=== PATIENT | male | born 1975 | race Caucasian/White ===

== ENCOUNTER 2019-02-08 23:46 | Emergency (ER) | payer OTHER ==
[~2019-02-08] VITALS: Ht 177.8 cm; Wt 77.1 kg
--- OUTSIDE RECORDS SUMMARY | ~2019-02-08 | XMS | Encounter Summary ---
Demographics + + + | Address | [address] | | | [place], [place] [address] | + + + | Home Phone | | + + + | Preferred Language | Unknown | + + + | Marital Status | | + + + | Advent Affiliation | Unknown | + + + | Race | Unknown | + + + | Ethnic Group | Unknown | + + + Author + + + | Author | [email or web address] | + + + | Organization | [email or web address] | + + + | Address | Unknown | + + + | Phone | Unavailable | + + + Support + + +---------+ + | Name | Relationship | Address | Phone | + + +---------+ + | María Everett | ECON | Unknown | | + + +---------+ + Care Team Providers + +------+ + | Care Defense Attorney Name | Role | Phone | + +------+ + | Manuel Reyes | PCP | | + +------+ + Reason for Referral MRI/CAT Scan (Routine) +--------+--------+ + + + + | Status | Reason | Specialty | Diagnoses / | Referred By | Referred To | | | | | Procedures | Contact | Contact | +--------+--------+ + + + + | Closed | | Radiology | Diagnoses | Eric, | [facility] | | | | | DDD | MAX Jackson | [address] | | | | | (degenerativ | [address] | | | | | e disc | [address] | [place], [place] | | | | | disease), | [place], | [address] Phone: | | | | | thor[place]umb[place] | [place] [address] | [phone] | | | | | r | Phone: | Fax: | | | | | Osteoarthrit | [phone] | [phone] | | | | | is of lower | Fax: | | | | | | back Low | [phone] | | | | | | back pain | | | | | | | with | | | | | | | sciatica, | | | | | | | sciatica | | | | | | | laterality | | | | | | | unspecified, | | | | | | | unspecified | | | | | | | back pain | | | | | | | laterality, | | | | | | | unspecified | | | | | | | chronicity | | | | | | | Procedures | | | | | | | MRI lumbar | | | | | | | spine | | | | | | | without | | | | | | | contrast | | | +--------+--------+ + + + + MRI/CAT Scan (Routine) +--------+--------+ + + + + | Status | Reason | Specialty | Diagnoses / | Referred By | Referred To | | | | | Procedures | Contact | Contact | +--------+--------+ + + + + | Closed | | Radiology | Diagnoses | Eric, | [facility] | | | | | DDD | MAX Jackson | [address] | | | | | (degenerativ | [address] | | | | | e disc | [place] | [place], [place] | | | | | disease), | [place], | [address] Phone: | | | | | thor[place] | [place] [address] | [phone] | | | | | r | Phone: | Fax: | | | | | Osteoarthrit | [phone] | [phone] | | | | | is of lower | Fax: | | | | | | back Low | [phone] | | | | | | back pain | | | | | | | with | | | | | | | sciatica, | | | | | | | sciatica | | | | | | | laterality | | | | | | | unspecified, | | | | | | | unspecified | | | | | | | back pain | | | | | | | laterality, | | | | | | | unspecified | | | | | | | chronicity | | | | | | | Procedures | | | | | | | MRI lumbar | | | | | | | spine | | | | | | | without | | | | | | | contrast | | | +--------+--------+ + + + + Reason for Visit MRI/CAT Scan (Routine) +--------+--------+ + + + + | Status | Reason | Specialty | Diagnoses / | Referred By | Referred To | | | | | Procedures | Contact | Contact | +--------+--------+ + + + + | Closed | | Radiology | Diagnoses | Eric, | [facility] | | | | | DDD | MAX Jackson | [address] | | | | | (degenerativ | [address] | | | | | e disc | [place] | [place], [place] | | | | | disease), | [place], | [address] Phone: | | | | | [place] | [place] [address] | [phone] | | | | | r | Phone: | Fax: | | | | | Osteoarthrit | [phone] | [phone] | | | | | is of lower | Fax: | | | | | | back Low | [phone] | | | | | | back pain | | | | | | | with | | | | | | | sciatica, | | | | | | | sciatica | | | | | | | laterality | | | | | | | unspecified, | | | | | | | unspecified | | | | | | | back pain | | | | | | | laterality, | | | | | | | unspecified | | | | | | | chronicity | | | | | | | Procedures | | | | | | | MRI lumbar | | | | | | | spine | | | | | | | without | | | | | | | contrast | | | +--------+--------+ + + + + Encounter Details +--------+ + + + + | Date | Type | Department | Care Team | Description | +--------+ + + + + | 12/26/ | Hospital | [facility] | Manuel Reyes, | DDD (degenerative | | 2019 | Encounter | [facility] | [place] [address] | disc disease), | | | | [address] | [place] [address] | thoracolumbar; | | | | [place] [address] | [phone] | Osteoarthritis of | | | | [phone] | | lower back; Low back | | | | | | pain with sciatica, | | | | | | sciatica laterality | | | | | | unspecified, | | | | | | unspecified back | | | | | | pain laterality, | | | | | | unspecified | | | | | | chronicity | +--------+ + + + + Social [...] + + + as of this encounter Medications at Time of Discharge + + +-------+---------+--------+ + | Medication | Sig. | Disp. | Refills | Start | End Date | | | | | | Date | | + + +-------+---------+--------+ + | baclofen | Take 10 mg by mouth | | | | | | (LIORESAL) 10 mg | 3 (three) times | | | | | | tablet | daily. | | | | | + + +-------+---------+--------+ + | escitalopram | Take 20 mg by mouth | | | | | | (LEXAPRO) 20 MG | daily. | | | | | | tablet | | | | | | + + +-------+---------+--------+ + | | Take 1 tablet by | | | | | | oxyCODONE-acetaminop | mouth every 4 (four) | | | | | | hen (PERCOCET) | hours as needed for | | | | | | 10-325 MG per tablet | Pain. | | | | | + + +-------+---------+--------+ + | propranolol | Take 10 mg by mouth | | | | | | (INDERAL) 10 MG | 3 (three) times | | | | | | tablet | daily. | | | | | + + +-------+---------+--------+ + as of this encounter Plan of Treatment Not on fileas of this encounter Procedures + +--------+ + + + | Procedure Name | Priori | Date/Time | Associated Diagnosis | Comments | | | ty | | | | + +--------+ + + + | MRI LUMBAR SPINE WO | Routin | 12/26/2018 | DDD (degenerative | Results for this | | CONTRAST | e | 4:09 PM | disc disease), | procedure are in the | | | | PST | thoracolumbar | results section. | | | | | Osteoarthritis of | | | | | | lower back Low back | | | | | | pain with sciatica, | | | | | | sciatica laterality | | | | | | unspecified, | | | | | | unspecified back | | | | | | pain laterality, | | | | | | unspecified | | | | | | chronicity | | + +--------+ + + + in this encounter Results MRI lumbar spine without contrast (12/26/2018 4:09 PM) + + + | Impressions | Performed At | + + + | 1. Severe bilateral L5/S1, moderate bilateral L4/5, and mild | [facility] | | bilateral L3/4 neural foraminal narrowing. 2. Additional multilevel | RADIOLOGY | | lumbar spine degenerative changes as detailed above without | | | significant spinal canal stenosis. Signed by: MD Cazares Casey | | | Sign Date/Time: 12/27/2018 6:53 AM | | + + + + + + | Narrative | Performed At | + + + | MRI LUMBAR SPINE WITHOUT CONTRAST CLINICAL INFORMATION: Low back | [facility] | | pain with sciatica. COMPARISON: None available. PROCEDURE: | RADIOLOGY | | Sagittal T2, axial T2, sagittal T1, axial T1, sagittal STIR sequences. | | | FINDINGS: Slight retrolisthesis of L3 on L4 and L4 on L5. Lumbar | | | spine alignment is otherwise maintained. No aggressive appearing | | | osseous lesion identified. No marrow edema to suggest acute | | | fracture. Multilevel disc desiccation and endplate degenerative | | | changes are present, most pronounced at L5/S1. Small superior T12 | | | and L2 endplate Schmorl's nodes are noted. The conus and cauda | | | equina are unremarkable in appearance. The conus terminates at the | | | lower L1 level. The visualized soft tissues are unremarkable. | | | T12-L1: No significant spinal canal stenosis or neural foraminal | | | narrowing. L1-L2: Mild diffuse disc bulge without spinal canal | | | stenosis or neural foraminal narrowing. L2-L3: No significant spinal | | | canal stenosis or neural foraminal narrowing. L3-L4: Mild diffuse | | | disc bulge and mild bilateral facet degeneration result in mild | | | bilateral neural foraminal narrowing without spinal canal stenosis. | | | L4-L5: Mild diffuse disc bulge, mild bilateral facet degeneration, and | | | ligamentum flavum thickening result in moderate bilateral neural | | | foraminal narrowing without spinal canal stenosis. L5-S1: Mild | | | posterior disc osteophyte complex, mild bilateral facet degeneration, | | | and ligamentum flavum thickening result in severe bilateral neural | | | foraminal narrowing without spinal canal stenosis. | | + + + + + | Procedure Note | + + | Lester, Rad Results In - 12/27/2018 6:57 AM PST MRI LUMBAR SPINE WITHOUT CONTRAST | | CLINICAL INFORMATION: | | Low back pain with sciatica. | | COMPARISON: | | None available. | | PROCEDURE: | | Sagittal T2, axial T2, sagittal T1, axial T1, sagittal STIR sequences. | | FINDINGS: | | Slight retrolisthesis of L3 on L4 and L4 on L5. Lumbar spine alignment | | is otherwise maintained. No aggressive appearing osseous lesion | | identified. No marrow edema to suggest acute fracture. Multilevel | | disc desiccation and endplate degenerative changes are present, most | | pronounced at L5/S1. Small superior T12 and L2 endplate Schmorl's | | nodes are noted. The conus and cauda equina are unremarkable in | | appearance. The conus terminates at the lower L1 level. The | | visualized soft tissues are unremarkable. | | T12-L1: No significant spinal canal stenosis or neural foraminal | | narrowing. | | L1-L2: Mild diffuse disc bulge without spinal canal stenosis or neural | | foraminal narrowing. | | L2-L3: No significant spinal canal stenosis or neural foraminal | | narrowing. | | L3-L4: Mild diffuse disc bulge and mild bilateral facet degeneration | | result in mild bilateral neural foraminal narrowing without spinal | | canal stenosis. | | L4-L5: Mild diffuse disc bulge, mild bilateral facet degeneration, and | | ligamentum flavum thickening result in moderate bilateral neural | | foraminal narrowing without spinal canal stenosis. | | L5-S1: Mild posterior disc osteophyte complex, mild bilateral facet | | degeneration, and ligamentum flavum thickening result in severe | | bilateral neural foraminal narrowing without spinal canal stenosis. | | IMPRESSION: | | 1. Severe bilateral L5/S1, moderate bilateral L4/5, and mild bilateral | | L3/4 neural foraminal narrowing. | | 2. Additional multilevel lumbar spine degenerative changes as detailed | | above without significant spinal canal stenosis. | | Signed by: MD Cazares Casey | | Sign Date/Time: 12/27/2018 6:53 AM | + + + + + + + | Performing | Address | City/State[facility] | Phone Number | | Organization | | | | + + + + + | [facility] | [address] | [place] [address] | | + + + + + in this encounter Visit Diagnoses + + | Diagnosis | + + | DDD (degenerative disc disease), thoracolumbar | + + | Degeneration of thoracic or thoracolumbar intervertebral disc | + + | Osteoarthritis of lower back | + + | Low back pain with sciatica, sciatica laterality unspecified, unspecified back pain | | laterality, unspecified chronicity | + +"
--- OUTSIDE RECORDS SUMMARY | ~2019-02-08 | XMS | Clinical Summary ---
Demographics + + + | Address | [address] | | | [place] [address] | + + + | Home Phone | | + + + | Preferred Language | Unknown | + + + | Marital Status | | + + + | Baptism Affiliation | Unknown | + + + | Race | Unknown | + + + | Ethnic Group | Unknown | + + + Author + + + | Author | [facility] | + + + | Organization | [facility] | + + + | Address | Unknown | + + + | Phone | Unavailable | + + + Support + + +---------+ + | Name | Relationship | Address | Phone | + + +---------+ + | María Everett | ECON | Unknown | | + + +---------+ + Care Team Providers + +------+ + | Care Animal Husbandry Manager Name | Role | Phone | + +------+ + | Manuel Reyes | PP | | + +------+ + Allergies + + + + + + | Active Allergy | Reactions | Severity | Noted | Comments | | | | | Date | | + + + + + + | Penicillins | Anaphylaxis | High | 07/30/20 | | | | | | 18 | | + + + + + + Current Medications + + +-------+---------+------+------+-------+ | Prescription | Sig. | Disp. | Refills | Star | End | Statu | | | | | | t | Date | s | | | | | | Date | | | + + +-------+---------+------+------+-------+ | | Take 1 tablet by | | | | | Activ | | oxyCODONE-acetaminop | mouth every 4 (four) | | | | | e | | hen (PERCOCET) | hours as needed for | | | | | | | 10-325 MG per tablet | Pain. | | | | | | + + +-------+---------+------+------+-------+ | propranolol | Take 10 mg by mouth | | | | | Activ | | (INDERAL) 10 MG | 3 (three) times | | | | | e | | tablet | daily. | | | | | | + + +-------+---------+------+------+-------+ | escitalopram | Take 20 mg by mouth | | | | | Activ | | (LEXAPRO) 20 MG | daily. | | | | | e | | tablet | | | | | | | + + +-------+---------+------+------+-------+ | baclofen | Take 10 mg by mouth | | | | | Activ | | (LIORESAL) 10 mg | 3 (three) times | | | | | e | | tablet | daily. | | | | | | + + +-------+---------+------+------+-------+ Active Problems No known active problems Encounters +--------+ + + + + | Date | Type | Specialty | Care Team | Description | +--------+ + + + + | 12/27/ | Orders Only | | Bre Connor, | Arthralgia of hip, | | 2018 | | | RN | unspecified | | | | | | laterality (Primary | | | | | | Dx) | +--------+ + + + + | 12/26/ | Hospital | | Manuel Reyes, | DDD (degenerative | | 2018 | Encounter | | [place] | disc disease), | | | | | | thoracolumbar; | | | | | | Osteoarthritis of | | | | | | lower back; Low back | [...] chronicity | +--------+ + + + + | 12/26/ | Hospital | | Brooke Tavarez, | Left hip pain | | 2018 | Encounter | | Babatunde Maza | | | | | | Procedure | | | | | | Radiologist Anel العراقي | | | | | | Nurse [facility] | | | | | | Counselor Marriage And Family | | +--------+ + + + + | 12/26/ | Hospital | | Brooke Tavarez, | Left hip pain | | 2018 | Encounter | | Anel WALLS Nurse | | +--------+ + + + + | 12/09/ | Documentati | | Manuel Reyes, | | | 2019 | on Only | | [place] | | +--------+ + + + + | 10/10/ | Procedure | | | | | 2017 | Pass | | | | +--------+ + + + + | 09/25/ | Procedure | | | | | 2017 | Pass | | | | +--------+ + + + + from Last 3 Months Family History + + +------+ + | Medical History | Relation | Name | Comments | + + +------+ + | Asthma | Mother | | | + + +------+ + | COPD | Mother | | | + + +------+ + | Heart defect | Mother | | | + + +------+ + | Heart disease | Mother | | | + + +------+ + | Hypertension | Mother | | | + + +------+ + + +------+ + + | Relation | Name | Status | Comments | + +------+ + + | Father | | Alive | | + +------+ + + | Mother | | | | + +------+ + + Social History + +-------+ +--------+ [...] on file | | + + + Last Filed Vital Signs + + + + | Vital Sign | Reading | Time Taken | + + + + | Blood Pressure | 114/64 | 12/26/2018 4:03 PM PST | + + + + | Pulse | 56 | 12/26/2018 4:03 PM PST | + + + + | Temperature | - | - | + + + + | Respiratory Rate | 11 | 12/26/2018 4:03 PM PST | + + + + | Oxygen Saturation | 95% | 12/26/2018 4:03 PM PST | + + + + | Inhaled Oxygen | - | - | | Concentration | | | + + + + | Weight | 70.3 kg (155 lb) | 12/26/2018 12:56 PM PST | + + + + | Height | 177.8 cm (5' 10") | 12/26/2018 12:56 PM PST | + + + + | Body Mass Index | 22.24 | 12/26/2018 12:56 PM PST | + + + + Plan of Treatment + + + + + | Health Maintenance | Due Date | Last Done | Comments | + + + + + | Vaccine: | | | | | Dtap/Tdap/Td (1 - | 4 | | | | Tdap) | | | | + + + + + | Vaccine: Influenza | | | | | (Season Ended) | 9 | | | + + + + + Procedures + +--------+ + + + | [...] + +--------+ + + + | MRI HIP LEFT | Routin | 12/26/2018 | Left hip pain | Results for this | | ARTHROGRAM W | e | 3:46 PM | | procedure are in the | | CONTRAST | | PST | | results section. | + +--------+ + + + | XR MRI ARTHROGRAM | Routin | 12/26/2018 | Left hip pain | Results for this | | HIP LEFT | e | 3:15 PM | | procedure are in the | | | | PST | | results section. | + +--------+ + + + from Last 3 Months Results MRI lumbar spine without contrast (12/26/2018 [...] | + + + + + | [facility] | [address] | [place] [address] | | + + + + + MRI hip left arthrogram with contrast (12/26/2018 3:46 PM) + + + | Impressions | Performed At | + + + | 1. Superolateral labral tear involving the base of the labrum. 2. | [facility] | | There is articular surface fraying of the anterior labrum. 3. No | RADIOLOGY | | full-thickness chondral defects. Signed by: Toi Olmedo Sign | | | Date/Time: 12/26/2018 4:19 PM | | + + + + + + | Narrative | Performed At | + + + | MRI LEFT HIP ARTHROGRAM CLINICAL INFORMATION: Left hip pain. | [facility] | | COMPARISON: XR MRI ARTHROGRAM HIP LEFT (12/26/2018); PROCEDURE: | RADIOLOGY | | Large blnmp-gk-dgym coronal T1 and STIR of the pelvis. Small | | | ivqps-vy-uuxu coronal T1 and T2, axial PD, sagittal T1, and radial T1 | | | of the hip of interest. Sequences obtained after the uneventful | | | intraarticular injection of dilute gadolinium. Sedation: None. | | | FINDINGS: Hip Morphology: Normal. Joint Space: Well distended with | | | contrast. Acetabular Labrum: Superolateral labral tear involving the | | | base of the labrum. There is articular surface fraying of the | | | anterior labrum (8/8). Articular Cartilage: No full-thickness | | | chondral defects. Musculature: Gluteal, psoas, hamstring, quadriceps, | | | adductor muscles and tendons normal. Pelvic Organs: No pelvic mass. | | | No adenopathy. Intramedullary mona of the left femur. | | + + + + + | Procedure Note | + + | Lester, Rad Results In - 12/26/2018 4:23 PM PST MRI LEFT HIP ARTHROGRAM | | CLINICAL INFORMATION: | | Left hip pain. | | COMPARISON: | | XR MRI ARTHROGRAM HIP LEFT (12/26/2018); | | PROCEDURE: | | Large zoimb-vt-jkfv coronal T1 and STIR of the pelvis. Small | | hukge-pi-emac coronal T1 and T2, axial PD, sagittal T1, and radial T1 | | of the hip of interest. Sequences obtained after the uneventful | | intraarticular injection of dilute gadolinium. Sedation: None. | | FINDINGS: | | Hip Morphology: Normal. | | Joint Space: Well distended with contrast. | | Acetabular Labrum: Superolateral labral tear involving the base of the | | labrum. There is articular surface fraying of the anterior labrum | | (06/12). | | Articular Cartilage: No full-thickness chondral defects. | | Musculature: Gluteal, psoas, hamstring, quadriceps, adductor muscles | | and tendons normal. | | Pelvic Organs: No pelvic mass. No adenopathy. | | Intramedullary mona of the left femur. | | IMPRESSION: | | 1. Superolateral labral tear involving the base of the labrum. | | 2. There is articular surface fraying of the anterior labrum. | | 3. No full-thickness chondral defects. | | Signed by: Toi Olmedo | | Sign Date/Time: 12/26/2018 4:19 PM | + + + + + + + | Performing | Address | City/State/Zipcode | Phone Number | | Organization | | | | + + + + + | [facility] | [address] | [place] [address] | | + + + + + X-ray MRI arthrogram hip left (12/26/2018 3:15 PM) + + + | Impressions | Performed At | + + + | Technically successful fluoroscopically guided injection of the left | [facility] | | hip for MR arthrography. Signed by: Toi Olmedo Date/Time: | RADIOLOGY | | 12/26/2018 3:48 PM | | + + + + + + | Narrative | Performed At | + + + | FLUOROSCOPICALLY GUIDED INJECTION OF THE LEFT HIP FOR MR | [facility] | | ARTHROGRAPHY CLINICAL INFORMATION: Left hip pain. COMPARISON: None | RAD[facility]OLOGY | | PROCEDURE: The procedure, alternatives, risks (including infection | | | and bleeding), and benefits were discussed with the patient and all | | | questions were answered. Written informed consent was obtained. The | | | skin overlying the left hip was prepped and draped in conventional | | | sterile fashion. Superficial and deep soft tissues were anesthetized | | | with 1% lidocaine. A 25 gauge 3 inch needle was advanced under | | | fluoroscopic guidance to the joint. Injection of 10ml of a solution | | | containing 10ml saline, 10 mL Isovue 200 contrast and 0.1 cc | | | gadolinium was injected. The patient tolerated the procedure well | | | without immediate complication. The needle was removed, and the skin | | | cleansed. A small bandage was placed over the puncture site. FLUORO | | | TIME: .1 minute The total number of images: 4 | | + + + + + | Procedure Note | + + | Lester, Rad Results In - 12/26/2018 3:52 PM PST FLUOROSCOPICALLY GUIDED INJECTION OF | | THE LEFT HIP FOR MR ARTHROGRAPHYCLINICAL INFORMATION:Left hip | | pain.COMPARISON:NonePROCEDURE:The procedure, alternatives, risks (including infection | | and bleeding),and benefits were discussed with the patient and all questions | | wereanswered. Written informed consent was obtained.The skin overlying the left hip was | | prepped and draped in conventionalsterile fashion. Superficial and deep soft tissues | | were anesthetizedwith 1% lidocaine. A 25 gauge 3 inch needle was advanced | | underfluoroscopic guidance to the joint. Injection of 10ml of a solutioncontaining 10ml | | saline, 10 mL Isovue 200 contrast and 0.1 cc gadoliniumwas injected. The patient | | tolerated the procedure well withoutimmediate complication.The needle was removed, and | | the skin cleansed. A small bandage wasplaced over the puncture site.FLUORO TIME:.1 | | minute The total number of images: 4IMPRESSION:Technically successful fluoroscopically | | guided injection of the lefthip for MR arthrography.Signed by: Calli Olmedo | | Date/Time: 12/26/2018 3:48 PM | |was injected. The patient tolerated the procedure well without | |immediate complication. | |The needle was removed, and the skin cleansed. A small bandage was | |placed over the puncture site. | |FLUORO TIME: | |.1 minute The total number of images: 4 | |IMPRESSION: | |Technically successful fluoroscopically guided injection of the left | |hip for MR arthrography. | |Signed by: Reeve, Toi | |Sign Date/Time: 12/26/2018 3:48 PM | + + + + + + + | Performing | Address | City/State/Zipcode | Phone Number | | Organization | | | | + + + + + | [facility] | [address] | [place] [address] | | + + + + + from Last 3 Months Insurance + +--------+ +------+-------+ + | Payer | Benefi | Subscriber | Type | Phone | Address | | | t Plan | ID | | | | | | / | | | | | | | Group | | | | | + +--------+ +------+-------+ + | MEDICAID | MAX | [id number] | | | [address] | | | N | | | | [place] | | | [place] | | | | [address] | | | [employer] | | | | | + +--------+ +------+-------+ + + +--------+ +--------+ + + | Guarantor Name | [employer]oun | Relation to | Date | Phone | Billing Address | | | t Type | Patient | of | | | | | | | | | | + +--------+ +--------+ + + | BENJAMIN WHEAT | Person | Self [birth year] | Home: | [address] | | | al/Fam | | 1975 | [phone] | [place] [address] | | | donte | | | [phone] | | + +--------+ +--------+ + +
--- OUTSIDE RECORDS SUMMARY | ~2019-02-08 | XMS | Encounter Summary ---
Demographics + + + | Address | [address] | | | [place], [place] [address] | + + + | Home Phone | | + + + | Preferred Language | Unknown | + + + | Marital Status | | + + + | Latter Day Affiliation | Unknown | + + + | Race | Unknown | + + + | Ethnic Group | Unknown | + + + Author + + + | Author | [facility] | + + + | Organization | [facility] | + + + | Address | Unknown | + + + | Phone | Unavailable | + + + Support + + +---------+ + | Name | Relationship | Address | Phone | + + +---------+ + | María Everett | ECON | Unknown | | + + +---------+ + Care Team Providers + +------+ + | Care Taker Down Name | Role | Phone | + +------+ + | Manuel Reyes | PCP | | + +------+ + Encounter Details +--------+ + + + + | Date | Type | Department | Care Team | Description | +--------+ + + + + | 12/09/ | Documentati | [facility] | Manuel Reyes, | | | 2019 | on Only | [facility] | [address] | | | | | Patient Access [id number] | [place] [address] | | | | | [place] [address], | [phone] | | | | | [place] [address] | | | | | | [phone] | | | +--------+ + + + + Social History + +-------+ +--------+------+ | Tobacco Use | Types | Packs/Day | Years | Date | | | | | Used | | + +-------+ +--------+------+ | Former Smoker | | | | | + +-------+ +--------+------+ + +---+---+---+ | Smokeless Tobacco: | | [...]
--- OUTSIDE RECORDS SUMMARY | ~2019-02-08 | XMS | Clinical Summary ---
Demographics + + + | Address | [address] | | | [place] [address] | + + + | Home Phone | | + + + | Preferred Language | Unknown | + + + | Marital Status | | + + + | Faith Affiliation | Unknown | + + + | Race | Unknown | + + + | Ethnic Group | Unknown | + + + Author + + + | Author | [facility] | + + + | Organization | [facility] | + + + | Address | Unknown | + + + | Phone | Unavailable | + + + Support + + +---------+ + | Name | Relationship | Address | Phone | + + +---------+ + | María Everett | ECON | Unknown | | + + +---------+ + Care Team Providers + +------+ + | Care Citrix Systems Administrator Name | Role | Phone | + [...] | | | | | Nurse [facility] | | | | | | Cane Flume Chute Operator | | +--------+ + + + + [...] | + + + + + | [facility] | [address] | [place] [address] | | + + + + + [...] (12/26/2018); PROCEDURE: | RADIOLOGY | | Large errlt-rk-xqsf coronal T1 and STIR of the pelvis. Small | | | yycoo-ul-nahy coronal T1 and T2, axial PD, sagittal [...] (12/26/2018); | | PROCEDURE: | | Large fcegw-hs-pmnr coronal T1 and STIR of the pelvis. 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
--- OUTSIDE RECORDS SUMMARY | ~2019-02-08 | XMS | Clinical Summary ---
Demographics + + + | Address | [address] | | | [place] [address] | + + + | Home Phone | | + + + | Preferred Language | Unknown | + + + | Marital Status | Single | + + + | Orthodoxy Affiliation | CHR | + + + [...] Phone | + + +---------+ + | PRANAY WHEAT | ECON | Unknown | | + + +---------+ + Care Team Providers + +------+ + | Care Cooperative Extension Agent Name | Role | Phone | + +------+ + PP | Unavailable | + +------+ + Source Comments DENISJOSEFINA is fully live on both EpicCare Ambulatory and EpicCare InPatient.[facility] Allergies Not on File Current Medications Not on file Active Problems Not on file Social History + +-------+ +--------+------+ | Tobacco [...] on file | | + + + Plan of Treatment + + + + + | Health Maintenance | Due Date | Last Done | Comments | + + + + + | Influenza (Flu) | | | | | vaccination (#1) | 8 | | | + + + + + Results Not on filefrom Last 3 Months Insurance + +--------+ +------+-------+---------+ | Payer | Benefi | Subscriber | Type | Phone | Address | | | t Plan | ID | | | | | | / | | | | | | | Group | | | | | + +--------+ +------+-------+---------+ | AUTO INS OTHER | AUTO | xxxxxxxxxx | Auto | | | | | INS | | | | | | | OTHER | | | | | + +--------+ +------+-------+---------+ + +--------+ +--------+ + + | Guarantor Name | Accoun | Relation to | Date | Phone | Billing Address | | | t Type | Patient | of | | | | | | | | | | + +--------+ +--------+ + + | BENJAMIN WHEAT | Person | 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
--- OUTSIDE RECORDS SUMMARY | ~2019-02-08 | XMS | Encounter Summary ---
Demographics + + + | Address | [address] | | | [place], [place] [address] | + + + | Home Phone | | + + + | Preferred Language | Unknown | + + + | Marital Status | | + + + | Congregational Affiliation | Unknown | + + + | Race | Unknown | + + + | Ethnic Group | Unknown | + + + Author + + + | Author | [facility] | + + + | Organization | [facility] | + + + | Address | Unknown | + + + | Phone | Unavailable | + + + Support + + +---------+ + | Name | Relationship | Address | Phone | + + +---------+ + | María Everett | ECON | Unknown | | + + +---------+ + Care Team Providers + +------+ + | Care Financial Reporting Accountant Name | Role | Phone | + +------+ + | Manuel Reyes | PCP | | + +------+ + Encounter Details +--------+ + + + + | Date | Type | Department | Care Team | Description | +--------+ + + + + | 12/26/ | Hospital | [facility] | Brooke Tavarez, | Left hip pain | | 2019 | Encounter | [facility] | MD Clem AGUILAR | | | | | [address] | [place], [place] | | | | | [place] [address] | [id number] | | | | | [phone] | [phone] | | | | | | | | | | | | Babatunde Goel Procedure | | | | | | Radiologist 1, Di | | | | | | Nurse Imaging, [facility] | | | | | | Nutritional Services Host | | +--------+ + + + + [...] + + + in this encounter Results X-ray MRI arthrogram hip left (12/26/2018 3:15 PM) + + + | Impressions | Performed At | + + + | Technically successful fluoroscopically guided injection of the left | [facility] | | hip for MR arthrography. Signed by: Toi lOmedo Sign Date/Time: | RADIOLOGY | | 12/26/2018 3:48 PM | | + + + + + + | Narrative | Performed At | + + + | FLUOROSCOPICALLY GUIDED INJECTION OF THE LEFT HIP FOR MR | [facility] | | ARTHROGRAPHY CLINICAL INFORMATION: Left hip [...] Procedure Note | + + | Lester, Arpit Results In - 12/26/2018 3:52 PM PST [...] |hip for MR arthrography. | |Signed by: Toi Olmedo | |Sign Date/Time: 12/26/2018 3:48 PM | + + + + + + + | Performing | Address | City/State/Zipcode | Phone Number | | Organization | | | | + + + + + | [facility] | [address] | [place] [address] | | + + + + + in this encounter Visit Diagnoses + + | Diagnosis | + + | Left hip pain | + + | Pain in joint, pelvic region and thigh | + + Administered Medications + +--------+ + +------+------+ | Medication Order | MAR | Action | Dose | Rate | Site | | | Action | Date | | | | + +--------+ + +------+------+ | gadobutrol (GADAVIST) injection | Given | | 0.05 mLs | | | | 0.05 mL 0.05 mL, | | 9 15:05 | | | | | Intra-articular, Img Once PRN, | | PST | | | | | Other, Starting Jolene 12/26/18 at | | | | | | | 1350, For 1 dose | | | | | | + +--------+ + +------+------+ +---+---+ | | | +---+---+ + +-------+ +-------+---+---+ | iopamidol (ISOVUE-200) 41 % | Given | | 5 mLs | | | | injection 5 mL 5 mL, Other, Img | | 9 15:04 | | | | | Once PRN, Other, Starting Jolene | | PST | | | | | 12/26/18 at 1350, For 1 dose | | | | | | + +-------+ +-------+---+---+ +---+---+ | | | +---+---+ + +-------+ +------+---+---+ | sodium bicarbonate buffer | Given | | 1 mL | | | | (NEUT) injection 1 mL 1 mL, | | 9 15:04 | | | | | Intradermal, Img Once PRN, for | | PST | | | | | procedure, Starting [facility] 12/26/18 | | | | | | | at 1350, For 1 dose | | | | | | + +-------+ +------+---+---+ +---+---+ | | | +---+---+ in this encounter"
--- OUTSIDE RECORDS SUMMARY | ~2019-02-08 | XMS | Encounter Summary ---
Demographics + + + | Address | [address] | | | [place], [place] [address] | + + + | Home Phone | | + + + | Preferred Language | Unknown | + + + | Marital Status | | + + + | Confucianist Affiliation | Unknown | + + + | Race | Unknown | + + + | Ethnic Group | Unknown | + + + Author + + + | Author | [facility] | + + + | Organization | [facility] | + + + | Address | Unknown | + + + | Phone | Unavailable | + + + Support + + +---------+ + | Name | Relationship | Address | Phone | + + +---------+ + | María Everett | ECON | Unknown | | + + +---------+ + Care Team Providers + +------+ + | Care Umbrella Supervisor Name | Role | Phone | [...] Closed | | Radiology | Diagnoses | Black, | [facility] | | | | | Left hip | Brooke, | [address] | | | | | pain | [address] | [address] | | | | | Procedures | [address] | [address] | | | | | MRI hip left | [place], [place] | [place], [place] | | | | | arthrogram | [id number] | [address] Phone: | | | | | with | Phone: | [phone] | | | | | contrast | [phone] | Fax: | | | | | | Fax: | [phone] | | | | | | [phone] | | +--------+--------+ + + + + MRI/CAT Scan (Routine) +--------+--------+ + + + + | Status | Reason | Specialty | Diagnoses / | Referred By | Referred To | | | | | Procedures | Contact | Contact | +--------+--------+ + + + + | Closed | | Radiology | Diagnoses | Black, | [facility] | | | | | Left hip | Brooke | [address] | | | | | pain | [address] | [address] | | | | | Procedures | [address] | [address] | | | | | MRI hip left | [place], [place] | [place], [place] | | | | | arthrogram | [id number] | [address] Phone: | | | | | with | Phone: | [phone] | | | | | contrast | [phone] | Fax: | | | | | | Fax: | [phone] | | | | | | [phone] | | +--------+--------+ + + + + Reason for Visit MRI/CAT Scan (Routine) +--------+--------+ + + + + | Status | Reason | Specialty | Diagnoses / | Referred By | Referred To | | | | | Procedures | Contact | Contact | +--------+--------+ + + + + | Closed | | Radiology | Diagnoses | Black, | [facility] | | | | | Left hip | Brooke, | [address] | | | | | pain | [address] | [address] | | | | | Procedures | [address] | [address] | | | | | MRI hip left | [place], [place] | [place], [place] | | | | | arthrogram | [id number] | [address] Phone: | | | | | with | Phone: | [phone] | | | | | contrast | [phone] | Fax: | | | | | | Fax: | [phone] | | | | | | [phone] | | +--------+--------+ + + + + Encounter Details +--------+ + + + + | Date | Type | Department | Care Team | Description | +--------+ + + + + | 12/26/ | Hospital | [facility] | Brooke Tavarez, | Left hip pain | | 2019 | Encounter | [facility] | [address] | | | | | [address] | [place], [place] | | | | | [place] [address] | [id number] | | | | | [phone] | [phone] | | | | | | | | | | | | 1, Di Nurse | | +--------+ + + [...] PM PST | + + + + in this encounter Discharge Instructions Annamarie Bhat RN - 12/26/2018Recovery After Procedural Sedation (Adult) You have been given medicine by vein to make you sleep during your procedure. This may have included both a pain medicine and sleeping medicine. Most of the effects have worn off. But you may still have some drowsiness for the next 6 to 8 hours. Home care Follow these guidelines when you get home: For the next 8 hours, you should be watched by a responsible adult. This person should m aimee sure your condition is not getting worse. Don't drink any alcoholfor the next [address], operate dangerous machinery,make important business or personal decisions , or sign legal documentsduring the next 24 hours. Note: Your healthcare provider may tell you not to take any medicine by mouth for pain or s leep in the next 4 hours. These medicines may react with the medicines you were given in the hospital. This could cause a much stronger response than usual. Follow-up care Follow up with your healthcare provider if you are not alert and back to your usual level o f activity within 12 hours. When to seek medical advice Call your healthcare provider right away if any of these occur: Drowsiness gets worse Weakness or dizziness gets worse Repeated vomiting You can't be awakened Date Last Reviewed: 08/22/201619992275-2569 [employer]. [address] [place] [address], [place] [address]. All righ ts reserved. This information is not intended as a substitute for professional medical care. Always follow your healthcare professional's instructions. in this encounter Medications at Time of [...] + + in this encounter Results MRI hip left arthrogram with contrast (12/26/2018 [...] ARTHROGRAM CLINICAL INFORMATION: Left hip pain. | [facility] | | COMPARISON: XR MRI ARTHROGRAM HIP LEFT (12/26/2018); PROCEDURE: | RADIOLOGY | | Large dejce-jd-jyoy coronal T1 and STIR of the pelvis. Small | | | qqpfz-el-phaf coronal T1 and T2, axial PD, sagittal [...] (12/26/2018); | | PROCEDURE: | | Large kowjr-qo-idwd coronal T1 and STIR of the pelvis. Small | | kxoaz-sm-bisy coronal T1 and T2, axial PD, sagittal [...] fraying of the anterior labrum | | (8/8). | | Articular Cartilage: No full-thickness chondral [...] | + + + + + | [facility] | [address] | [place] [address] | | + + + + + in this encounter Visit Diagnoses + + | Diagnosis | + + | Left hip pain | + + | Pain in joint, pelvic region and thigh | + + Administered Medications + +--------+ +--------+------+------+ | Medication Order | MAR | Action | Dose | Rate | Site | | | Action | Date | | | | + +--------+ +--------+------+------+ | fentaNYL (SUBLIMAZE) injection | Given | | 50 mcg | | | | 25 mcg 25 mcg, Intravenous, PRN, | | 9 15:46 | | | | | Pain, Every 2 minutes PRN, | | PST | | | | | Starting [facility] 12/26/18 at 1512, | | | | | | | Intra-procedure (CATH/IR) | | | | | | + +--------+ +--------+------+------+ +---+---+ | | | +---+---+ + +-------+ +--------+---+---+ | midazolam (VERSED) injection | Given | | 1.5 mg | | | | 0.5 mg 0.5 mg, Intravenous, PRN, | | 9 15:47 | | | | | maintenance moderate sedation, | | PST | | | | | Starting [facility] 12/26/18 at 1512, | | | | | | | Intra-procedure (CATH/IR) | | | | | | + +-------+ +--------+---+---+ +---+---+ | | | +---+---+ in this encounter
--- OUTSIDE RECORDS SUMMARY | ~2019-02-08 | XMS | Encounter Summary ---
Demographics + + + | Address | [address] | | | [place], [place] [address] | + + + | Home Phone | | + + + | Preferred Language | Unknown | + + + | Marital Status | | + + + | Amish Affiliation | Unknown | + + + | Race | Unknown | + + + | Ethnic Group | Unknown | + + + Author + + + | Author | [facility] | + + + | Organization | [facility] | + + + | Address | Unknown | + + + | Phone | Unavailable | + + + Support + + +---------+ + | Name | Relationship | Address | Phone | + + +---------+ + | María Everett | ECON | Unknown | | + + +---------+ + Care Team Providers + +------+ + | Care Preparation Room Manager Name | Role | Phone | + +------+ + | Manuel Reyes | PCP | | + +------+ + Encounter Details +--------+ + + + + | Date | Type | Department | Care Team | Description | +--------+ + + + + | 09/25/ | Procedure | [facility] | | | | 2018 | Pass | [facility] MRI | | | | | | [address] | | | | | | [place] [address] | | | | | | [phone] | | | +--------+ + + + [...]
--- OUTSIDE RECORDS SUMMARY | ~2019-02-08 | XMS | Encounter Summary ---
Demographics + + + | Address | [address] | | | [place], [place] [address] | + + + | Home Phone | | + + + | Preferred Language | Unknown | + + + | Marital Status | | + + + | Jew Affiliation | Unknown | + + + | Race | Unknown | + + + | Ethnic Group | Unknown | + + + Author + + + | Author | [facility] | + + + | Organization | [facility] | + + + | Address | Unknown | + + + | Phone | Unavailable | + + + Support + + +---------+ + | Name | Relationship | Address | Phone | + + +---------+ + | María Everett | ECON | Unknown | | + + +---------+ + Care Team Providers + +------+ + | Care Enterprise Account Executive Name | Role | Phone | + +------+ + | Manuel Reyes | PCP | | + +------+ + Encounter Details +--------+ + + + + | Date | Type | Department | Care Team | Description | +--------+ + + + + | 12/09/ | Documentati | [facility] | Manuel Reyes, | | | 2019 | on Only | [facility] | [address] | | | | | [address] | [place] [address] | | | | | [address] [place], | [phone] | | | | | [place] [address] | | | | | | [phone] | | | +--------+ + + + [...]
--- OUTSIDE RECORDS SUMMARY | ~2019-02-08 | XMS | Encounter Summary ---
Demographics + + + | Address | [address] | | | [place], [place] [address] | + + + | Home Phone | | + + + | Preferred Language | Unknown | + + + | Marital Status | | + + + | Yazidism Affiliation | Unknown | + + + | Race | Unknown | + + + | Ethnic Group | Unknown | + + + Author + + + | Author | [facility] | + + + | Organization | [facility] | + + + | Address | Unknown | + + + | Phone | Unavailable | + + + Support + + +---------+ + | Name | Relationship | Address | Phone | + + +---------+ + | María Everett | ECON | Unknown | | + + +---------+ + Care Team Providers + +------+ + | Care Lever Tender Name | Role | Phone | + +------+ + | Manuel Reyes | PCP | | + +------+ + Encounter Details +--------+ + + + + | Date | Type | Department | Care Team | Description | +--------+ + + + + | 10/10/ | Procedure | [facility] | | | | 2018 | Pass | [facility] MRI | | | | | | [address] | | | | | | [place] [address] | | | | | | [phone] | | | +--------+ + + + [...]
--- OUTSIDE RECORDS SUMMARY | ~2019-02-08 | XMS | Encounter Summary ---
Demographics + + + | Address | [address] | | | [place], [place] [address] | + + + | Home Phone | | + + + | Preferred Language | Unknown | + + + | Marital Status | | + + + | Restorationist Affiliation | Unknown | + + + | Race | Unknown | + + + | Ethnic Group | Unknown | + + + Author + + + | Author | [facility] | + + + | Organization | [facility] | + + + | Address | Unknown | + + + | Phone | Unavailable | + + + Support + + +---------+ + | Name | Relationship | Address | Phone | + + +---------+ + | María Everett | ECON | Unknown | | + + +---------+ + Care Team Providers + +------+ + | Care Convertible Top Installer Name | Role | Phone | + +------+ + | Manuel Reyes | PCP | | + +------+ + Encounter Details +--------+ + + + + | Date | Type | Department | Care Team | Description | +--------+ + + + + | 09/25/ | Procedure | [facility] | | | | 2018 | Pass | [facility] | | | | | | [address] | | | | | | [place] [address] | | | | | | [phone] | | | +--------+ + + + [...]
--- OUTSIDE RECORDS SUMMARY | ~2019-02-08 | XMS | Encounter Summary ---
Demographics + + + | Address | [address] | | | [place], [place] [address] | + + + | Home Phone | | + + + | Preferred Language | Unknown | + + + | Marital Status | | + + + | Sikhism Affiliation | Unknown | + + + | Race | Unknown | + + + | Ethnic Group | Unknown | + + + Author + + + | Author | [facility] | + + + | Organization | [facility] | + + + | Address | Unknown | + + + | Phone | Unavailable | + + + Support + + +---------+ + | Name | Relationship | Address | Phone | + + +---------+ + | María Everett | ECON | Unknown | | + + +---------+ + Care Team Providers + +------+ + | Care Insulation Board Coater Operator Name | Role | Phone | + +------+ + | Manuel Reyes | PCP | | + +------+ + Encounter Details +--------+ + + + + | Date | Type | Department | Care Team | Description | +--------+ + + + + | 10/10/ | Procedure | [facility] | | | | 2018 | Pass | [facility] MRI | | | | | | [address] | | | | | | [place] [address] | | | | | | [phone] | | | +--------+ + + + [...]
--- OUTSIDE RECORDS SUMMARY | ~2019-02-08 | XMS | Encounter Summary ---
Demographics + + + | Address | [address] | | | [place], [place] [address] | + + + | Home Phone | | + + + | Preferred Language | Unknown | + + + | Marital Status | | + + + | Latter-Day Affiliation | Unknown | + + + | Race | Unknown | + + + | Ethnic Group | Unknown | + + + Author + + + | Author | [facility] | + + + | Organization | [facility] | + + + | Address | Unknown | + + + | Phone | Unavailable | + + + Support + + +---------+ + | Name | Relationship | Address | Phone | + + +---------+ + | María Everett | ECON | Unknown | | + + +---------+ + Care Team Providers + +------+ + | Care Microfiche Camera Operator Name | Role | Phone | + +------+ + | Manuel Reyes | PCP | | + +------+ + Reason for Referral Surgical (Routine) + + + + + + + | Status | Reason | Specialty | Diagnoses / | Referred By | Referred To | | | | | Procedures | Contact | Contact | + + + + + + + | Authorized | Specialty | Orthopedic | Diagnoses | Corby, | Tariq, | | | Services | Surgery | Arthralgia | Bro[place], | Darrick Bird MD | | | Required | | of hip, | [address] | | | | | unspecified | [address] | [place], | | | | | laterality | [place], [place] | [place] [address] | | | | | | [id number] | Phone: | | | | | | Phone: | [phone] | | | | | | [phone] | Fax: | | | | | | Fax: | [phone] | | | | | | [phone] | | + + + + + + + Encounter Details +--------+ + + + + | Date | Type | Department | Care Team | Description | +--------+ + + + + | 12/27/ | Orders Only | [facility] | Bre Connor, | Arthralgia of hip, | | 2018 | | [facility] | RN | unspecified | | | | [facility] [place] | | laterality (Primary | | | | [address] | | Dx) | | | | [place], [place] | | | | | | [address] | | | | | | [phone] | | | +--------+ + + + [...] of this encounter Plan of Treatment + +--------+ + + | Name | Priori | Associated Diagnoses | Order Schedule | | | ty | | | + +--------+ + + | Ambulatory referral to Orthopedic | Routin | Arthralgia of hip, | Ordered: 12/27/2018 | | Surgery | e | unspecified | | | | | laterality | | + +--------+ + + as of this encounter Visit Diagnoses + + | Diagnosis | + + | Arthralgia of hip, unspecified laterality - Primary | + +"
--- OUTSIDE RECORDS SUMMARY | ~2019-02-08 | XMS | Clinical Summary ---
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
--- OUTSIDE RECORDS SUMMARY | ~2019-02-08 | XMS | Encounter Summary ---
Demographics + + + | Address | [address] | | | [place], [place] [address] | + + + | Home Phone | | + + + | Preferred Language | Unknown | + + + | Marital Status | | + + + | Nondenominational Affiliation | Unknown | + + + | Race | Unknown | + + + | Ethnic Group | Unknown | + + + Author + + + | Author | [facility] | + + + | Organization | [facility] | + + + | Address | Unknown | + + + | Phone | Unavailable | + + + Support + + +---------+ + | Name | Relationship | Address | Phone | + + +---------+ + | María Everett | ECON | Unknown | | + + +---------+ + Care Team Providers + +------+ + | Care Relations Manager Name | Role | Phone | [...] | Radiology | Diagnoses | Black, | [facility] | | | | | Left hip | Brooke, | [address] | | | | | pain | [address] | | | | | Procedures | [address] | [address] | | | | | MRI hip left | [place], [place] | [place], [place] | | | | | arthrogram | [id number] | [address] Phone: | | | | | with | Phone: | [phone] | | | | | contrast | [phone] | Fax: | | | | | | Fax: | [phone] | | | | | | [phone] | | +--------+--------+ + + + + MRI/CAT Scan (Routine) +--------+--------+ + + + + | Status | Reason | Specialty | Diagnoses / | Referred By | Referred To | | | | | Procedures | Contact | Contact | +--------+--------+ + + + + | Closed | | Radiology | Diagnoses | Black, | [facility] | | | | | Left hip | Brooke | [address] | | | | | pain | [address] | [address] | | | | | Procedures | [address] | [address] | | | | | MRI hip left | [place], [place] | [place], [place] | | | | | arthrogram | [id number] | [address] Phone: | | | | | with | Phone: | [phone] | | | | | contrast | [phone] | Fax: | | | | | | Fax: | [phone] | | | | | | [phone] | | +--------+--------+ + + + + Reason for Visit MRI/CAT Scan (Routine) +--------+--------+ + + + + | Status | Reason | Specialty | Diagnoses / | Referred By | Referred To | | | | | Procedures | Contact | Contact | +--------+--------+ + + + + | Closed | | Radiology | Diagnoses | Black, | [facility] | | | | | Left hip | Brooke, | [address] | | | | | pain | [address] | [address] | | | | | Procedures | [address] | [address] | | | | | MRI hip left | [place], [place] | [place], [place] | | | | | arthrogram | [id number] | [address] Phone: | | | | | with | Phone: | [phone] | | | | | contrast | [phone] | Fax: | | | | | | Fax: | [phone] | | | | | | [phone] | | +--------+--------+ + + + + Encounter Details +--------+ + + + + | Date | Type | Department | Care Team | Description | +--------+ + + + + | 12/26/ | Hospital | [facility] | Brooke Tavarez, | Left hip pain | | 2019 | Encounter | [facility] MRI | [address] | | | | | [address] | [place], [place] | | | | | [place] [address] | [id number] | | | | | [phone] | [phone] | | | | | | | [...] You can't be awakened Date Last Reviewed: 08/22/[id number] [employer]. [address] [place] [address], [place] [address]. All righ ts reserved. This information is [...] (12/26/2018); PROCEDURE: | RADIOLOGY | | Large rjlzd-mz-hnrh coronal T1 and STIR of the pelvis. Small | | | xzyjl-mi-hakd coronal T1 and T2, axial PD, sagittal [...] (12/26/2018); | | PROCEDURE: | | Large exhfg-tu-hthh coronal T1 and STIR of the pelvis. Small | | rkyyp-ku-yqnk coronal T1 and T2, axial PD, sagittal [...] | + + + + + | [facility] | [address] | [place] [address] | | + + + + + [...] PST | | | | | Starting [facility] 12/26/18 at 1512, | | | [...] PST | | | | | Starting [facility] 12/26/18 at 1512, | | | | | | | Intra-procedure (CATH/IR) | | | | | | + +-------+ +--------+---+---+ +---+---+ | | | +---+---+ in this encounter
--- OUTSIDE RECORDS SUMMARY | ~2019-02-08 | XMS | Encounter Summary ---
Demographics + + + | Address | [address] | | | [place], [place] [address] | + + + | Home Phone | | + + + | Preferred Language | Unknown | + + + | Marital Status | | + + + | Orthodox Affiliation | Unknown | + + + | Race | Unknown | + + + | Ethnic Group | Unknown | + + + Author + + + | Author | [facility] | + + + | Organization | [facility] | + + + | Address | Unknown | + + + | Phone | Unavailable | + + + Support + + +---------+ + | Name | Relationship | Address | Phone | + + +---------+ + | María Everett | ECON | Unknown | | + + +---------+ + Care Team Providers + +------+ + | Care Industrial Hygienist Name | Role | Phone | + [...] | Radiology | Diagnoses | Eric, | [facility] | | | | | DDD | [address] | [address] | | | | | (degenerativ | [address] | | | | | e disc | [address] | [place], [place] | | | | | disease), | [place], | [address] Phone: | | | | | [place] | [place] [address] | [phone] | | | | | r | Phone: | Fax: | | | | | Osteoarthrit | [phone] | [phone] | | | | | is of lower | Fax: | | | | | | back Low | [phone] | | | | | | back [...] | Radiology | Diagnoses | Eric, | [facility] | | | | | DDD | MAX Jackson | [address] | | | | | (degenerativ | [address] | | | | | e disc | [place] | [place], [place] | | | | | disease), | [place], | [address] Phone: | | | | | [place] | [place] [address] | [phone] | | | | | r | Phone: | Fax: | | | | | Osteoarthrit | [phone] | [phone] | | | | | is of lower | Fax: | | | | | | back Low | [phone] | | | | | | back [...] | | e disc | [address] | [place], [place] | | | | | disease), | [place], | [address] Phone: | | | | | [place] | [place] [address] | [phone] | | | | | r | Phone: | Fax: | | | | | Osteoarthrit | [phone] | [phone] | | | | | is of lower | Fax: | | | | | | back Low | [phone] | | | | | | back [...] + + | 12/26/ | Hospital | [facility] | Manuel Reyes, | DDD (degenerative | | 2019 | Encounter | [facility] MRI | [place] [address] | disc disease), | | | | [address] | [place] [address] | thoracolumbar; | | | | [place] [address] | [phone] | Osteoarthritis of | | | | [phone] | | lower back; Low back | [...] + + | Performing | Address | City/State/[facility] | Phone Number | | Organization | | | | + + + + + | [facility] | [address] | [place] [address] | | + + + + + [...]
--- OUTSIDE RECORDS SUMMARY | ~2019-02-08 | XMS | Encounter Summary ---
Demographics + + + | Address | [address] | | | [place], [place] [address] | + + + | Home Phone [...] + + | Author | [facility] | + + + | Organization | [facility] | + + + | Address | Unknown | + + + | Phone | Unavailable | + + + Support + + +---------+ + | Name | Relationship | Address | Phone | + + +---------+ + | María Everett | ECON | Unknown | | + + +---------+ + Care Team Providers + +------+ + | Care Bulkhead Carpenter Name | Role | Phone | + [...] | unspecified | [address] | [place], | | | | | laterality | [place], [place] | [place] [address] | | | | | | [id number] | Phone: | | | | | | Phone: | [phone] | | | | | | [phone] | Fax: | | | | | | Fax: | [phone] | | | | | | [phone] | | + + + + + [...] | unspecified | | | | [facility] [place] | | laterality (Primary | | | | [address] | | Dx) | | | | [place], [place] | | | | | | [address] | | | | | | [phone] | | | +--------+ + + + [...]
--- OUTSIDE RECORDS SUMMARY | ~2019-02-08 | XMS | Encounter Summary ---
Demographics + + + | Address | [address] | | | [place], [place] [address] | + + + | Home Phone | | + + + | Preferred Language | Unknown | + + + | Marital Status | | + + + | Scientologist Affiliation | Unknown | + + + | Race | Unknown | + + + | Ethnic Group | Unknown | + + + Author + + + | Author | [facility] | + + + | Organization | [facility] | + + + | Address | Unknown | + + + | Phone | Unavailable | + + + Support + + +---------+ + | Name | Relationship | Address | Phone | + + +---------+ + | María Everett | ECON | Unknown | | + + +---------+ + Care Team Providers + +------+ + | Care Arch Support Maker Name | Role | Phone | + +------+ + | Manuel Reyes | PCP | | + +------+ + Encounter Details +--------+ + + + + | Date | Type | Department | Care Team | Description | +--------+ + + + + | 12/26/ | Hospital | [facility] | Brooke Tavarez, | Left hip pain | | 2019 | Encounter | [facility] Xray | MD Clem AGUILAR | | | | | [address] | [place], [place] | | | | | [place] [address] | [id number] | | | | | [phone] | [phone] | | | | | | | | | | | | Babatunde Goel Procedure | | | | | | Radiologist 1, Di | | | | | | Nurse Imaging, [facility] | | | | | | Birth Certificate Clerk | | +--------+ + + + + [...] for MR arthrography. Signed by: Toi Olmedo Sign Date/Time: | RADIOLOGY | | 12/26/2018 [...] + + + + + | [facility] | [address] | [place] [address] | | + + + + + [...] | | | | | procedure, Starting [facility] 12/26/18 | | | | | | | at 1350, For 1 dose | | | | | | + +-------+ +------+---+---+ +---+---+ | | | +---+---+ in this encounter"
[~2019-02-08 23:46] MED LIST: ALPRAZOLAM1 MG PO; BACLOFEN10 MG PO; CLONAZEPAM1 MG PO; HYDROCODON-ACE1 EAC8 PO; MEDICAL MARIJUANA; NAPROXEN500 MG PO; NEURONTIN400 MG PO; NICOTINE PATCH1 EAC1 TD; OMEPRAZOLE40 MG PO; ONDANSETRON ODT8 MG PO; OXYCODONE-ACET1 EAC1 PO; PERCOCET 5-3251 EACH PO; TRAMADOL HCL50 MG PO; XANAX0.5 MG PO
[2019-02-09] MEDS ORDERED: PROPRANOLOL HCL20 MG PO
[2019-02-09] MEDS ORDERED: ESCITALOPRAM OX20 MG PO
[2019-02-09] MEDS ORDERED: IBUPROFEN800 MG PO
[2019-02-09] MEDS ORDERED: NORCO 5-325 TA1 EACH PO (01:54)
--- OUTSIDE RECORDS SUMMARY | 2019-02-09 02:34 | XMS ---
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 Yoshi has no Care Guidelines for this patient. [facility]ite VISIT COUNT (12 MO.) 1 [facility] TOTAL 1 NOTE: Visits indicate total known visits. ED/C VISIT TRACKING (12 MO.) 02/08/2019 23:47 [facility] [place] TYPE: Emergency COMPLAINT: - NECK PAIN INPATIENT VISIT TRACKING (12 MO.) No inpatient visits to display in this time frame [id number]
== END 2019-02-09 02:25 | disposition home or self-care (01) ==
LOC: ED 23:46
DX: S13.4XXA Sprain of ligaments of cervical spine, initial encounter (principal); R20.2 Paresthesia of skin; Y04.8XXA Assault by other bodily force, initial encounter; F41.9 Anxiety disorder, unspecified; F17.200 Nicotine dependence, unspecified, uncomplicated; Z88.0 Allergy status to penicillin; Z79.899 Other long term (current) 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; Z79.891 Long term (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
CPT/HCPCS: 70450; 72125; 73060; 73090; 96374; 96375; 96376; 99284-25; J1170; J2405

== ENCOUNTER 2019-04-04 22:13 | Emergency (ER) | payer OTHER ==
[~2019-04-04] VITALS: Ht 177.8 cm; Wt 68.0 kg
--- OUTSIDE RECORDS SUMMARY | ~2019-04-04 | XMS | Encounter Summary ---
Demographics + + + | Address | [address] | | | [place], [place] [address] | + + + | Home Phone | | + + + | Preferred Language | Unknown | + + + | Marital Status | | + + + | Druze Affiliation | Unknown | + + + | Race | Unknown | + + + | Ethnic Group | Unknown | + + + Author + + + | Author | [facility] | + + + | Organization | [facility] | + + + | Address | Unknown | + + + | Phone | Unavailable | + + + Support + + +---------+ + | Name | Relationship | Address | Phone | + + +---------+ + | Gerry Medina | ECON | Unknown | | + + +---------+ + Care Team Providers + +------+ + | Care Diesel Service Journeyman Name | Role | Phone | + +------+ + | Manuel Reyes | PCP | | + +------+ + Encounter Details +--------+ + + + + | Date | Type | Department | Care Team | Description | +--------+ + + + + | 02/20/ | Documentati | [facility] | Jeff Osorio MD | | | 2019 | on Only | [facility] | [address] | | | | | [address] | [place] [address] | | | | | [place], [place] | [phone] | | | | | [address] | | | | | | [phone] | | | +--------+ + + + + Social History + +-------+ +--------+ + | Tobacco Use | Types | Packs/Day | Years | Date | | | | | Used | | + +-------+ +--------+ + | Former Smoker | | | | Quit: 11/05/2017 | + +-------+ +--------+ + + +---+---+---+ | Smokeless Tobacco: | | | | | Never Used | | | | + +---+---+---+ + + +---------+ + | Alcohol Use | Drinks/We | oz/Week | Comments | | | ek | | | + + +---------+ + | No | | | | + + +---------+ + + + + | Sex Assigned at | Date Recorded | | | | + + + | Not on file | | + + + as of this encounter Plan of Treatment Not on fileas of this encounter Visit Diagnoses Not on filein this encounter"
--- OUTSIDE RECORDS SUMMARY | ~2019-04-04 | XMS | Encounter Summary ---
Demographics + + + | Address | [address] | | | [place] [address] | + + + | Home Phone | | + + + | Preferred Language | Unknown | + + + | Marital Status | Single | + + + | Alevism Affiliation | CHR | + + + | Race | White | + + + | Ethnic Group | Not or | + + + Author + + + | Author | [facility] | + + + | Organization | [facility] | + + + | Address | Unknown | + + + | Phone | Unavailable | + + + Support + + +---------+ + | Name | Relationship | Address | Phone | + + +---------+ + | Cristofer Medina | ECON | Unknown | | + + +---------+ + Care Team Providers + +------+ + | Care Structural Steel Equipment Erector Name | Role | Phone | + +------+ + PCP | Unavailable | + +------+ + Encounter Details +--------+ + + + + | Date | Type | Department | Care Team | Description | +--------+ + + + + | 01/23/ | ED | [facility] | Report, Emergency | ED Consult | | 2003 | Consult-Tra | MEDICINE | Services | | | | nscribed | | | | +--------+ + + + + Social History + +-------+ +--------+------+ | Tobacco Use | Types | Packs/Day | Years | Date | | | | | Used | | + +-------+ +--------+------+ | Never Assessed | | | | | + +-------+ +--------+------+ + + + | Sex Assigned at | Date Recorded | | | | + + + | Not on file | | + + + + + + + | Job Start Date | Occupation | Industry | + + + + | Not on file | Not on file | Not on file | + + + + + + + + | Travel History | Travel Start | Travel End | + + + + + + | No recent travel history available. | + + documented as of this encounter Plan of Treatment Not on filedocumented as of this encounter Visit Diagnoses Not on filedocumented in this encounter"
--- OUTSIDE RECORDS SUMMARY | ~2019-04-04 | XMS | Encounter Summary ---
Demographics + + + | Address | [address] | | | [place], [place] [address] | + + + | Home Phone | | + + + | Preferred Language | Unknown | + + + | Marital Status | | + + + | Anglican Affiliation | Unknown | + + + | Race | Unknown | + + + | Ethnic Group | Unknown | + + + Author + + + | Author | [facility] | + + + | Organization | [facility] | + + + | Address | Unknown | + + + | Phone | Unavailable | + + + Support + + +---------+ + | Name | Relationship | Address | Phone | + + +---------+ + | Gerry Medina | ECON | Unknown | | + + +---------+ + Care Team Providers + +------+ + | Care Tobacco Farmworker Name | Role | Phone | + +------+ + | Manuel Reyes | PCP | | + +------+ + Reason for Visit + + + | Reason | Comments | + + + | Referral | | + + + Encounter Details +--------+ + + + + | Date | Type | Department | Care Team | Description | +--------+ + + + + | 03/11/ | Telephone | [facility] | Vicky Ferrell, | Referral | | 2018 | | [facility] | PROOF SORTER | | | | | MEDICINE [facility] | | | | | | [address] | | | | | | [place] | | | | | | [address] | | | | | | [phone] | | | +--------+ + + + [...] Treatment Not on fileas of this encounter Results XR Steroid Joint Injection Hip Lt (03/17/2019 1:46 PM) + + + | Impressions | Performed At | + + + | Technically successful fluoroscopically guided diagnostic injection | [facility] | | of the left hip . Signed by: Jill Hernandez Chet Sign Date/Time: | RADIOLOGY | | 03/17/2019 2:26 PM | | + + + + + + | Narrative | Performed At | + + + | FLUOROSCOPICALLY GUIDED INJECTION OF THE LEFT HIP CLINICAL | [facility] | | INFORMATION: Severe left hip pain. COMPARISON: MRI HIP LEFT | RADIOLOGY | | ARTHROGRAM W CONTRAST (12/26/2018); XR MRI ARTHROGRAM HIP LEFT | | | (12/26/2018); PROCEDURE: The procedure, alternatives, risks | | | (including infection and bleeding), and benefits were discussed with | | | the patient and all questions were answered. The appropriate side | | | and site was selected and marked prior to the procedure and | | | imaging. Written informed consent was obtained. The skin overlying | | | the left hip was prepped and draped in conventional sterile fashion. | | | Superficial and deep soft tissues were anesthetized with 1% | | | lidocaine. A 22 gauge spinal needle was advanced under fluoroscopic | | | guidance to the joint. Tiny amount of Omnipaque 300 was injected | | | to confirm needle placement. Injection of 3 cc of 0.5% Bupivicaine | | | and 3 cc of 1% lidocaine was injected into the left hip joint. The | | | needle was removed, and the skin cleansed. A small bandage was placed | | | over the puncture site. FLUORO TIME: The total number of images: | | | 1. Peak skin dose 2.3 mGy. Fluoroscopic time 0.4 minutes. | | | Preprocedural pain level was 8-9/10 Postprocedural pain level was | | | 6/10 | | + + + + + | Procedure Note | + + | Lester, Rad Results In - 03/17/2019 2:30 PM PDT FLUOROSCOPICALLY GUIDED INJECTION OF | | THE LEFT HIPCLINICAL INFORMATION:Severe left hip pain.COMPARISON:MRI HIP LEFT ARTHROGRAM | | W CONTRAST (12/26/2018); XR MRI ARTHROGRAM HIPLEFT (12/26/2018);PROCEDURE:The procedure, | | alternatives, risks (including infection and bleeding),and benefits were discussed with | | the patient and all questions wereanswered. The appropriate side and site was selected | | and marked priorto the procedure and imaging. Written informed consent was obtained.The | | skin overlying the left hip was prepped and draped in conventionalsterile fashion. | | Superficial and deep soft tissues were anesthetizedwith 1% lidocaine. A 22 gauge spinal | | needle was advanced underfluoroscopic guidance to the joint. Tiny amount of Omnipaque | | 300 wasinjected to confirm needle placement. Injection of 3 cc of 0.5%Bupivicaine and 3 | | cc of 1% lidocaine was injected into the left hipjoint.The needle was removed, and the | | skin cleansed. A small bandage wasplaced over the puncture site.FLUORO TIME:The total | | number of images: 1. Peak skin dose 2.3 mGy. Fluoroscopictime 0.4 | | minutes.Preprocedural pain level was 8-9/10Postprocedural pain level was | | 6/10IMPRESSION:Technically successful fluoroscopically guided diagnostic injection ofthe | | left hip .Signed by: Jill Hernandez ChetSign Date/Time: 03/17/2019 2:26 PM | |Bupivicaine and 3 cc of 1% lidocaine was injected into the left hip | |joint. | |The needle was removed, and the skin cleansed. A small bandage was | |placed over the puncture site. | |FLUORO TIME: | |The total number of images: 1. Peak skin dose 2.3 mGy. Fluoroscopic | |time 0.4 minutes. | |Preprocedural pain level was 8-9/10 | |Postprocedural pain level was 6/10 | |IMPRESSION: | |Technically successful fluoroscopically guided diagnostic injection of | |the left hip . | |Signed by: Jill Hernandez Chet | |Sign Date/Time: 03/17/2019 2:26 PM | + + + + + + + | Performing | Address | City/State/Zipcode | Phone Number | | Organization | | | | + + + + + | [facility] | [address] | [place] [address] | | + + + + + in this encounter Visit Diagnoses + + | Diagnosis | + + | Tear of left acetabular labrum, initial encounter - Primary | + +"
--- OUTSIDE RECORDS SUMMARY | ~2019-04-04 | XMS | Encounter Summary ---
Demographics + + + | Address | [address] | | | [place], [place] [address] | + + + | Home Phone | | + + + | Preferred Language | Unknown | + + + | Marital Status | | + + + | Quaker Affiliation | Unknown | + + + | Race | Unknown | + + + | Ethnic Group | Unknown | + + + Author + + + | Author | [facility] | + + + | Organization | [facility] | + + + | Address | Unknown | + + + | Phone | Unavailable | + + + Support + + +---------+ + | Name | Relationship | Address | Phone | + + +---------+ + | Gerry Medina | ECON | Unknown | | + + +---------+ + Care Team Providers + +------+ + | Care Supervisor [place] Name | Role | Phone | + +------+ + | Manuel Reyes | PCP | | + +------+ + Encounter Details +--------+ + + + + | Date | Type | Department | Care Team | Description | +--------+ + + + + | 03/17/ | Hospital | [facility] | Darrick Potter, | Tear of left | | 2019 | Encounter | [facility] | MD Sofi IBARRA | [facility], | | | | [address] | [place] [address] | initial encounter | | | | [place] [address] | [phone] | | | | | [phone] | | | | | | | Babatunde Goel Procedure | | | | | | Radiologist 2, Babatunde | | | | | | Di Nurse | | +--------+ + + + + [...] + + + as of this encounter Last Filed Vital Signs + + + + | Vital Sign | Reading | Time Taken | + + + + | Blood Pressure | 128/77 | 03/17/2019 1:52 PM PDT | + + + + | Pulse | 55 | 03/17/2019 1:52 PM PDT | + + + + | Temperature | 37.2 C (98.9 F) | 03/17/2019 12:26 PM PDT | + + + + | Respiratory Rate | 16 | 03/17/2019 1:52 PM PDT | + + + + | Oxygen Saturation | 95% | 03/17/2019 1:52 PM PDT | + + + + | Inhaled Oxygen | - | - | | Concentration | | | + + + + | Weight | 65.8 kg (145 lb) | 03/17/2019 12:26 PM PDT | + + + + | Height | 177.8 cm (5' 10") | 03/17/2019 12:26 PM PDT | + + + + | Body Mass Index | 20.81 | 03/17/2019 12:26 PM PDT | + + + + in this encounter Discharge Instructions Cristina Abdi RN - 03/17/2019Discharge instructions for Diagnostic Imaging sedation patients Adult Discharge Instructions: 1. We suggest you start with liquids and increase your diet as tolerated. Call Diagnostic I enrique if you have persistent nausea or vomiting. 2. You should rest the remainder of the day. 3. For the next 24 hours, you should not: -Drive a car, operate machinery or power tools. -Drink any alcoholic beverages, including beer, wine, or other spirits. -Smoke unattended. -Make any important decisions. -Cook or bake unsupervised. 4. You may take your regular medications at any time. If you have any questions, you may reach the Diagnostic Imaging nurse at , ex t. [phone] For any severe symptoms, please call 911 or report to your nearest Emergency Department. 1. REST for the remainder of the day. 2. For the next 24 hours you should NOT: a. Drive a car, or operate machinery and/or power tools. b. Drink any alcoholic beverage, including wine. c. Smoke unattended. d. Make any important decisions. e. Cook or bake unsupervised. 3. Multiple adhesive bandages may be on the patient s back or neck. These should remain d ry for at least 24 hours, at which point they can be removed. 4. Patients are instructed to continue to take their prescription medication, although pain medication may be tapered as indicated. 5. An epidural steroid injection was performed at the following spinal level(s): C T L L/S 6. You may experience the following symptoms that typically resolve in 7 to 10 days: a. Pain at the needle puncture site(s). b. Mild increased back or neck stiffness. c. Deep back and/or neck pain. 7. Treatment for mild post-procedure symptoms are as follows: a. Rest the affected area for 3 to 4 days. b. Avoid movements that aggravate the pain. c. Apply cold compresses to the area that hurts. 8. Signs and symptoms of infection: a. Fever b. Chills c. Swelling or drainage from the puncture site(s). d. New back or neck pain that is different from the usual pain. 9. Signs and symptoms of possible more serious problems: a. Stiff neck b. Increasing pain c. Motor dysfunction such as difficulty walking or lifting. d. Bowel or bladder dysfunction. 10. For any concerns or to report symptoms of infection call: , ext. [phone] or come to the ER. in this encounter Medications at Time of Discharge + + +-------+---------+ + + | Medication | Sig. | Disp. | Refills | Start | End Date | | | | | | Date | | + + +-------+---------+ + + | baclofen | Take 10 mg by mouth | | | | | | (LIORESAL) 10 mg | 3 (three) times | | | | | | tablet | daily. | | | | | + + +-------+---------+ + + | clonazePAM | take 1/2 tablet by | | 0 | 02/01/20 | | | (KLONOPIN) 0.5 MG | mouth once daily if | | | 19 | | | tablet | needed for ACUTE | | | | | | | ANXIETY | | | | | + + +-------+---------+ + + | escitalopram | Take 20 mg by mouth | | | | | | (LEXAPRO) 20 MG | daily. | | | | | | tablet | | | | | | + + +-------+---------+ + + | ibuprofen (MOTRIN) | Take 800 mg by mouth | | 1 | 02/04/20 | | | 800 MG tablet | 3 (three) times | | | 19 | | | | daily with meals. | | | | | + + +-------+---------+ + + | methocarbamol | Take 750 mg by mouth | | 0 | 03/11/20 | | | (ROBAXIN) 750 MG | every 8 (eight) | | | 19 | | | tablet | hours as needed. FOR | | | | | | | MUSCLE SPASM | | | | | + + +-------+---------+ + + | nicotine (NICODERM | Apply 1 patch by | | 0 | 03/05/20 | | | CQ) 21 MG/24HR | transdermal route | | | 19 | | | | EVERY DAY and remove | | | | | | | at bedtime | | | | | + + +-------+---------+ + + | ondansetron | | | 0 | 02/14/20 | | | (ZOFRAN-ODT) 8 MG | | | | 19 | | | disintegrating | | | | | | | tablet | | | | | | + + +-------+---------+ + + | | Take 1 tablet by | | | | | | oxyCODONE-acetaminop | mouth every 4 (four) | | | | | | hen (PERCOCET) | hours as needed for | | | | | | 10-325 MG per tablet | Pain. | | | | | + + +-------+---------+ + + | propranolol | Take 10 mg by mouth | | | | | | (INDERAL) 10 MG | daily. | | | | | | tabletIndications: | | | | | | | Situational Anxiety | | | | | | + + +-------+---------+ + + | terbinafine | Take 250 mg by mouth | | 0 | 03/11/20 | | | (LAMISIL) 250 MG | daily. | | | 19 | | | tablet | | | | | | + + +-------+---------+ + + | | | | 0 | 03/08/20 | | | oxyCODONE-acetaminop | | | | 19 | 9 | | hen (PERCOCET) 5-325 | | | | | | | MG per tablet | | | | | | + + +-------+---------+ + + as of this encounter Plan of Treatment Not on fileas of this encounter Procedures + +--------+ + + + | Procedure Name | Priori | Date/Time | Associated Diagnosis | Comments | | | ty | | | | + +--------+ + + + | XR JOINT INJECTION | Routin | 03/17/2019 | Tear of left | Results for this | | HIP LEFT | e | 1:46 PM | acetabular labrum, | procedure are in the | | | | PDT | initial encounter | results section. | + +--------+ + + + in this encounter Results XR Steroid Joint Injection [...] + + | Lester, Rad Results In 03/17/2019 2:30 PM PDT FLUOROSCOPICALLY GUIDED INJECTION [...] | + + + + + | [facility] | [address] | [place] [address] | | + + + + + in this encounter Visit Diagnoses + + | Diagnosis | + + | Tear of left acetabular labrum, initial encounter | + + Administered Medications + +--------+ +-------+------+------+ | Medication Order | MAR | Action | Dose | Rate | Site | | | Action | Date | | | | + +--------+ +-------+------+------+ | bupivacaine (PF) (MARCAINE) | Given | | 3 mLs | | | | 0.25 % injection 3 mL 3 mL, | | 9 13:45 | | | | | Intra-articular, Img Once PRN, | | PDT | | | | | for procedure, Starting Mon | | | | | | | 03/17/19 at 1257, For 1 dose | | | | | | + +--------+ +-------+------+------+ +---+---+ | | | +---+---+ + +-------+ +--------+---+---+ | fentaNYL (SUBLIMAZE) injection | Given | | 75 mcg | | | | 25 mcg 25 mcg, Intravenous, PRN, | | 9 13:45 | | | | | Pain, Every 2 minutes PRN, | | PDT | | | | | Starting Sun03/17/19 at 1305, | | | | | | | Intra-procedure (CATH/IR) | | | | | | + +-------+ +--------+---+---+ +---+---+ | | | +---+---+ + +-------+ +-------+---+---+ | iohexol (OMNIPAQUE 300) 300 | Given | | 3 mLs | | | | mg/mL injection 3 mL 3 mL, | | 9 13:45 | | | | | Intra-articular, Img Once PRN, | | PDT | | | | | Other, Starting Sun03/17/19 at | | | | | | | 1258, For 1 dose | | | | | | + +-------+ +-------+---+---+ +---+---+ | | | +---+---+ + +-------+ +-------+---+---+ | lidocaine 1 % injection 3 mL 3 | Given | | 3 mLs | | | | mL, Other, Img Once PRN, for | | 9 13:46 | | | | | procedure, Starting 03/17/19 | | PDT | | | | | at 1252, For 1 dose | | | | | | + +-------+ +-------+---+---+ +---+---+ | | | +---+---+ + +-------+ +------+---+---+ | midazolam (VERSED) injection | Given | | 3 mg | | | | 0.5 mg 0.5 mg, Intravenous, PRN, | | 9 13:46 | | | | | maintenance moderate sedation, | | PDT | | | | | Starting 03/17/19 at 1305, | | | | | | | Intra-procedure (CATH/IR) | | | | | | + +-------+ +------+---+---+ +---+---+ | | | +---+---+ in this encounter
--- OUTSIDE RECORDS SUMMARY | ~2019-04-04 | XMS | Encounter Summary ---
Demographics + + + | Address | [address] | | | [place] [address] | + + + | Home Phone | | + + + | Preferred Language | Unknown | + + + | Marital Status | Single | + + + | Scientologist Affiliation | CHR | + + + | Race | White | + + + | Ethnic Group | Not or | + + + Author + + + | Organization | Unknown | + + + | Address | Unknown | + + + | Phone | Unavailable | + + + Support + + +---------+ + | Name | Relationship | Address | Phone | + + +---------+ + | Critsofer Medina | ECON | Unknown | | + + +---------+ + Care Team Providers + +------+ + | Care Maintenance Mechanic Supervisor Name | Role | Phone | + +------+ + PCP | Unavailable | + +------+ + Encounter Details +--------+ + + + + | Date | Type | Department | Care Team | Description | +--------+ + + + + | 01/23/ | Results | | Other, Faculty | | | 2003 | Only | | [phone] | | +--------+ + + + + [...] Not on filedocumented as of this encounter Procedures + +--------+ + + + | Procedure Name | Priori | Date/Time | Associated Diagnosis | Comments | | | ty | | | | + +--------+ + + + | HEMATOCRIT | Urgent | 01/24/2004 | | Results for this | | | | 7:05 PM | | procedure are in the | | | | PST | | results section. | + +--------+ + + + | PHOSPHORUS, PLASMA | Urgent | 01/24/2004 | | Results for this | | | | 7:05 PM | | procedure are in the | | | | PST | | results section. | + +--------+ + + + | MAGNESIUM, PLASMA | Urgent | 01/24/2004 | | Results for this | | | | 7:05 PM | | procedure are in the | | | | PST | | results section. | + +--------+ + + + documented in this encounter Results HEMATOCRIT (01/24/2004 7:05 PM PST) + + + + + + | Component | Value | Ref Range | Performed | Pathologist | | | | | At | Signature | + + + + + + | HEMATOCRIT | 32.0 (L) | 38.0 - 50.4 % | [facility] | | | | | | DEPARTMENT | | | | | | OF | | | | | | PATHOLOGY | | + + + + + + + + | Specimen | + + | | + + + + + | Narrative | Performed At | + + + | Ordered by KUNAL PATTERSON JR. | [facility] | | | DEPARTMENT OF | | | PATHOLOGY | + + + + + + + + | Performing | Address | City/State/Zipcode | Phone Number | | Organization | | | | + + + + + | [facility] DEPARTMENT | [address] | [place] [address] | | | PATHOLOGY | [address] | | | + + + + + | [facility] | [facility] | [place] [address] | | | PATHOLOGY | [address] | | | + + + + + MAGNESIUM, PLASMA (01/24/2004 7:05 PM PST) + +---------+ + + + | Component | Value | Ref Range | Performed | Pathologist | | | | | At | Signature | + +---------+ + + + | MAGNESIUM,P | Hemolzd | 1.8 - 2.5 mg/dL | [facility] | | | LASMA | | | DEPARTMENT | | | | | | OF | | | | | | PATHOLOGY | | + +---------+ + + + + + | Specimen | + + | | + + + + + | Narrative | Performed At | + + + | Ordered by KUNAL PATTERSON JR. [id number] Sample hemolyzed.Results may | [facility] | | be innaccurate. (PHOS 2.3, MG 2.4) | DEPARTMENT OF | | | PATHOLOGY | + + + + + + + + | Performing | Address | City/State/Zipcode | Phone Number | | Organization | | | | + + + + + | [facility] DEPARTMENT | [facility] | [place] [address] | | | PATHOLOGY | [address] | | | + + + + + | [facility] DEPARTMENT OF | [address] | [place] [address] | | | PATHOLOGY | [address] | | | + + + + + PHOSPHORUS, PLASMA (01/24/2004 7:05 PM PST) + +---------+ + + + | Component | Value | Ref Range | Performed | Pathologist | | | | | At | Signature | + +---------+ + + + | PHOSPHORUS, | Hemolzd | 2.4 - 4.7 mg/dL | [facility] | | | PLASMA | | | DEPARTMENT | | | (LAB) | | | OF | | | | | | PATHOLOGY | | + +---------+ + + + + + | Specimen | + + | | + + + + + | Narrative | Performed At | + + + | Ordered by KUNAL PATTERSON JR. [id number] Sample hemolyzed.Results may | [facility] | | be innaccurate. (PHOS 2.3, MG 2.4) | DEPARTMENT OF | | | PATHOLOGY | + + + + + + + + | Performing | Address | City/State/Zipcode | Phone Number | | Organization | | | | + + + + + | [facility] DEPARTMENT OF | [address] | [place] [address] | | | PATHOLOGY | [address] | | | + + + + + | [facility] | [address] | [place] [address] | | | PATHOLOGY | [address] | | | + + + + + documented in this encounter Visit Diagnoses Not on filedocumented in this encounter"
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
--- OUTSIDE RECORDS SUMMARY | ~2019-04-04 | XMS | Encounter Summary ---
Demographics + + + | Address | [address] | | | [place] [address] | + + + | Home Phone | | + + + | Preferred Language | Unknown | + + + | Marital Status | Single | + + + | Christianity Affiliation | CHR | + + + | Race | White | + + + | Ethnic Group | Not or | + + + Author + + + | Author | [facility] | + + + | Organization | [facility] | + + + | Address | Unknown | + + + | Phone | Unavailable | + + + Support + + +---------+ + | Name | Relationship | Address | Phone | + + +---------+ + | Cristofer Medina | ECON | Unknown | | + + +---------+ + Care Team Providers + +------+ + | Care Etiologist Name | Role | Phone | + +------+ + PCP | Unavailable | + +------+ + Reason for Referral Diagnostic Testing (Routine) +--------+--------+ + + + + | Status | Reason | Specialty | Diagnoses / | Referred By | Referred To | | | | | Procedures | Contact | Contact | +--------+--------+ + + + + | Closed | | Clinical | Diagnoses | Bandar, | | | | | Neurophysiolo | Injury to | Jarrod | | | | | gy | brachial | MD [address] | | | | | | plexus, | [address] | | | | | | initial | E[place]OG[place], | | | | | | encounter | [place] [address] | | | | | | Procedures | Phone: | | | | | | EMG/NERVE | [phone] | | | | | | CONDUCTION | Fax: | | | | | | STUDIES,ADUL | [phone] | | | | | | T - | | | | | | | NEUROLOGY | | | +--------+--------+ + + + + Encounter Details +--------+ + + + + | Date | Type | Department | Care Team | Description | +--------+ + + + + | 04/22/ | Outside | Neurophysiology | Bandar, | | | 2015 | Referral | EMG at [facility] 8th Floor | Jarrod Bird MD | | | | Order | [address] | [address] | | | | | Mail Code: CH8E | [place] [address] | | | | | [facility] | [phone] | | | | | and [facility] | | | | | | floor [place], [place] | | | | | | [address] | | | | | | [phone] | | | +--------+ + + + [...] as of this encounter Plan of Treatment + + +--------+ + + | Name | Type | Priori | Associated Diagnoses | Order Schedule | | | | ty | | | + + +--------+ + + | EMG/NERVE CONDUCTION | Procedures | Routin | Injury to brachial | Ordered: 04/22/2015 | | STUDIES,ADULT - | | e | plexus, initial | | | NEUROLOGY | | | encounter | | + + +--------+ + + documented as of this encounter Visit Diagnoses + + | Diagnosis | + + | 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
--- OUTSIDE RECORDS SUMMARY | ~2019-04-04 | XMS | Encounter Summary ---
Demographics + + + | Address | [address] | | | [place] [address] | + + + | Home Phone | | + + + | Preferred Language | Unknown | + + + | Marital Status | Single | + + + | Jain Affiliation | CHR | + + + [...] Team Providers + +------+ + | Care Occup Therapist Name | Role | Phone | + +------+ + PCP | Unavailable | + +------+ + Encounter Details +--------+ + + + + | Date | Type | Department | Care Team | Description | +--------+ + + + + | 01/23/ | Results | | Other, Faculty | | | 2003 | Only | | [phone] | | +--------+ + + + + [...] | + + + + + | [facility] DEPARTMENT | [address] | [place] [address] | | | PATHOLOGY | [address] | | | + + + + + | [facility] | [facility] [address] | [place] [address] | | | PATHOLOGY | [address] [...] + | Ordered by KUNAL PATTERSON JR. [id number] Sample hemolyzed.Results may | [facility] | | be innaccurate. (PHOS 2.3, MG 2.4) | DEPARTMENT OF | | | PATHOLOGY | + + + + + + + + | Performing | Address | City/State/Zipcode | Phone Number | | Organization | | | | + + + + + | [facility] DEPARTMENT | [facility] | [place] [address] | | | PATHOLOGY | [address] | | | + + + + + | [facility] DEPARTMENT OF | [address] | [place] [address] | | | PATHOLOGY | [address] [...] + | Ordered by KUNAL PATTERSON JR. [id number] Sample hemolyzed.Results may | [facility] | | be innaccurate. (PHOS 2.3, MG 2.4) | DEPARTMENT OF | | | PATHOLOGY | + + + + + + + + | Performing | Address | City/State/Zipcode | Phone Number | | Organization | | | | + + + + + | [facility] DEPARTMENT OF | [address] | [place] [address] | | | PATHOLOGY | [address] | | | + + + + + | [facility] | [address] | [place] [address] | | | PATHOLOGY | [address] | | | + + + + + documented in this encounter Visit Diagnoses Not on filedocumented in this encounter"
--- OUTSIDE RECORDS SUMMARY | ~2019-04-04 | XMS | Encounter Summary ---
Demographics + + + | Address | [address] | | | [place] [address] | + + + | Home Phone | | + + + | Preferred Language | Unknown | + + + | Marital Status | Single | + + + | Hinduism Affiliation | CHR | + + + [...] Team Providers + +------+ + | Care Polysomnographic Technologist Name | Role | Phone | + +------+ + PCP | Unavailable | + +------+ + Encounter Details +--------+ + + + + | Date | Type | Department | Care Team | Description | +--------+ + + + + | 01/23/ | Results | | Aline Morrell | | | 2003 | Only | | [address] | | | | | | [place], | | | | | | [place] [address] | | +--------+ + + + + [...] | + +--------+ + + + | X-RAY FEMUR 2 VIEWS | Urgent | 01/24/2004 | | Results for this | | LEFT | | 6:40 PM | | procedure are in the | | | | PST | | results section. | + +--------+ + + + | CT HEAD WO CONTRAST | Urgent | 01/24/2004 | | Results for this | | | | 1:20 PM | | procedure are in the | | | | PST | | results section. | + +--------+ + + + documented in this encounter Results FEMUR 2 VIEWS LEFT (01/24/2004 6:40 PM PST) + + + + + + | Component | Value | Ref Range | Performed | Pathologist | | | | | At | Signature | + + + + + + | FEMUR 2 | Radiologist 1: HALIE, | | | | | VIEWS LEFT | Tesfaye ANDRES | | | | | | Amanda-Radiologist 2: | | | | | | OBIE BROWN: | | | | | | Left femur AP and | | | | | | lateral views | | | | | | COMPARISON: None | | | | | | FINDINGS: There has been | | | | | | recent placement of an | | | | | | antegrade | | | | | | intramedullaryfemoral | | | | | | mona with one proximal | | | | | | and two distal | | | | | | interlocking screwsthat | | | | | | bridges a transverse | | | | | | distal femoral | | | | | | diaphyseal | | | | | | fracture.Minimal lateral | | | | | | displacement of the | | | | | | distal fragment and | | | | | | mildrecurvatum deformity | | | | | | are seen. The two | | | | | | additional abandoned | | | | | | pintracks are seen in | | | | | | the distal femoral | | | | | | metaphysis indicating | | | | | | arevision. The AP view | | | | | | of the distal femur is | | | | | | externally | | | | | | rotated. The | | | | | | jointspaces of the hip | | | | | | and knee grossly | | | | | | maintained. IMPRESSION: | | | | | | 1. Transverse distal | | | | | | diaphyseal femoral | | | | | | fracture with | | | | | | minimallateral | | | | | | displacement of the | | | | | | distal fragment and mild | | | | | | recurvatumdeformity | | | | | | following placement of a | | | | | | statically locked | | | | | | antegradeintramedullary | | | | | | femoral mona. | | | | + + + + + + + + | Specimen | + + | | + + + +---------+ + + | Performing | Address | City/State/Zipcode | Phone Number | | Organization | | | | + +---------+ + + | [facility] DEPARTMENT OF | | | | | RADIOLOGY | | | | + +---------+ + + CT HEAD WO CONTRAST (01/24/2004 1:20 PM PST) + + + + + + | Component | Value | Ref Range | Performed | Pathologist | | | | | At | Signature | + + + + + + | CT HEAD WO | Radiologist 1: OLIVA | | | | | CONTRAST | TAIWO Mac | | | | | | Amanda-Radiologist 2: | | | | | | BERE ACEVEDO:CT | | | | | | head without contrast. | | | | | | HISTORY:Trauma. Evalu | | | | | | ate for progression of | | | | | | hemorrhage. | | | | | | COMPARISON:CT 01/24/2004 | | | | | | 6:39 AM TECHNIQUE: 6mm | | | | | | sections with no overlap | | | | | | were obtained from | | | | | | thevertex through the | | | | | | formen magnum. | | | | | | FINDINGS:There are | | | | | | multiple foci of | | | | | | subcortical hemorrhage | | | | | | in theright inferior | | | | | | frontal lobe, left | | | | | | inferior frontal lobe, | | | | | | rightparietal lobe, and | | | | | | left aspect of the | | | | | | corpus | | | | | | callosum. Thesedemons | | | | | | trate slightly increased | | | | | | surrounding low | | | | | | attenuation. Thereis | | | | | | subtle high attenuation | | | | | | within the left superior | | | | | | colliculus, aswell as | | | | | | along the right | | | | | | quadrigeminal plate | | | | | | cistern, which | | | | | | mayrepresent small foci | | | | | | of either parenchymal | | | | | | blood or | | | | | | subarachnoidhemorrhage. | | | | | | There is effacement of | | | | | | the convexity sulci | | | | | | representing | | | | | | diffuseedema. The | | | | | | inferior most aspect of | | | | | | the foramen magnum is | | | | | | notvisualized again on | | | | | | this study, and it | | | | | | appears the | | | | | | cerebellartonsils are | | | | | | low lying. There is | | | | | | no mass effect, midline | | | | | | shift, orhydrocephalus. | | | | | | The extracranial soft | | | | | | tissues, orbits, and | | | | | | osseous structures | | | | | | areunchanged. | | | | | | IMPRESSION: | | | | | | 1. Multiple | | | | | | subcortical hemorrhage | | | | | | is involving the | | | | | | bilateralfrontal lobes, | | | | | | right parietal lobe, and | | | | | | corpus | | | | | | callosum,representing | | | | | | diffuse axonal injury. | | | | | | There is diffuse | | | | | | cerebraledema. | | | | | | 2. High density near | | | | | | the quadrigeminal plate, | | | | | | representing | | | | | | eitherparenchymal | | | | | | contusion or small | | | | | | degree of subarachnoid | | | | | | hemorrhage. 3. Low | | | | | | lying cerebellar | | | | | | tonsils, with the | | | | | | inferior aspect of | | | | | | theforamen magnum | | | | | | incompletely visualized. | | | | | | | | | | + + + + + + + + | Specimen | + + | | + + + +---------+ + + | Performing | Address | City/State/Zipcode | Phone Number | | Organization | | | | + +---------+ + + | [facility] DEPARTMENT OF | | | | | RADIOLOGY | | | | + +---------+ + + documented in this encounter Visit Diagnoses Not on filedocumented in this encounter"
--- OUTSIDE RECORDS SUMMARY | ~2019-04-04 | XMS | Encounter Summary ---
Demographics + + + | Address | [address] | | | [place] [address] | + + + | Home Phone [...] Team Providers + +------+ + | Care Special Trackwork Blacksmith Name | Role | Phone | + [...] | | | | | | [place] [address] | | +--------+ + + + + [...] | | + +---------+ + + | [facility] DEPARTMENT OF | | | | | [...] | | + +---------+ + + | [facility] DEPARTMENT OF | | | | | RADIOLOGY | | | | + +---------+ + + documented in this encounter Visit Diagnoses Not on filedocumented in this encounter"
--- OUTSIDE RECORDS SUMMARY | ~2019-04-04 | XMS | Encounter Summary ---
Demographics + + + | Address | [address] | | | [place] [address] | + + + | Home Phone | | + + + | Preferred Language | Unknown | + + + | Marital Status | Single | + + + | Pentecostal Affiliation | CHR | + + + [...] Team Providers + +------+ + | Care Aerologist Name | Role | Phone | + +------+ + PCP | Unavailable | + +------+ + Encounter Details +--------+ + + + + | Date | Type | Department | Care Team | Description | +--------+ + + + + | 07/14/ | Orders Only | | Record, Operation | | | 2004 | | | | | +--------+ + [...] | + +--------+ + + + | OPERATION RECORD | | 07/14/2004 | | Results for this | | | | | | procedure are in the | | | | | | results section. | + +--------+ + + + documented in this encounter Results OPERATION RECORD (07/14/2004) + + | Transcriptions | + + | Interface, Tow Motor Driver In - 10/28/2005 6:01 AM PST Date: | | 07/14/2004Attending Surgeon: Irsa Fowler, | | AmandaCar Salter(s):Preoperative Diagnosis(es):Pain, left hip, status post intramedullary | | nailing for a femur fracture.Postoperative Diagnosis(es):Pain, left hip, status post | | intramedullary nailing for a femur fracture.Procedures Performed:Removal of proximal | | locking screw, left hip, as possible etiology | | fordiscomfort.Anesthesia:Complications:Specimens:Indications:Procedure:With the patient | | under general anesthetic, the left hip area was preppedthoroughly and draped in a | | sterile manner. A 1-inch incision was madethrough the skin in the iliotibial band and | | the screw identified andremoved without difficulty from the proximal femur.The wound was | | closed with 3-0 Ethilon sutures, and a sterile dressing wasapplied.The patient was | | awakened and returned to Recovery in stable condition.Sponge and needle counts were | | correct. There was no blood loss. Nospecimen.GENEVA Rolle / [id number] / [id number] | | / [id number] / T: 07/15/2004 | |discomfort. | | | |Anesthesia: | | | |Complications: | | | |Specimens: | | | |Indications: | | | |Procedure: | |With the patient under general anesthetic, the left hip area was prepped | |thoroughly and draped in a sterile manner. A 1-inch incision was made | |through the skin in the iliotibial band and the screw identified and | |removed without difficulty from the proximal femur. | | | |The wound was closed with 3-0 Ethilon sutures, and a sterile dressing was | |applied. | | | |The patient was awakened and returned to Recovery in stable condition. | |Sponge and needle counts were correct. There was no blood loss. No | |specimen. | | | | | | | | | |Isra Fowler M.D. | | | |TV / HS | |[id number] / [id number] / [id number] / | | | | | + + documented in this encounter Visit Diagnoses Not on filedocumented in this encounter"
--- OUTSIDE RECORDS SUMMARY | ~2019-04-04 | XMS | Encounter Summary ---
Demographics + + + | Address | [address] | | | [place] [address] | + + + | Home Phone | | + + + | Preferred Language | Unknown | + + + | Marital Status | Single | + + + | Baptist Affiliation | CHR | + + + | Race | White | + + + | Ethnic Group | Not or | + + + Author + + + | Author | [facility] | + + + | Organization | [facility] | + + + | Address | Unknown | + + + | Phone | Unavailable | + + + Support + + +---------+ + | Name | Relationship | Address | Phone | + + +---------+ + | Cristofer Wheat | ECON | Unknown | | + + +---------+ + Care Team Providers + +------+ + | Care Lockstitch Waistline Joiner Name | Role | Phone | + +------+ + PCP | Unavailable | + +------+ + Encounter Details +--------+ + + + + | Date | Type | Department | Care Team | Description | +--------+ + + + + | 07/20/ | Office | [facility] | Note, Orthopedics | Progress Note | | 2003 | Visit-Trans | | Clinic | | | | cribed | | | | +--------+ + + [...] + + documented as of this encounter Progress Notes Interface, Collection Team Lead In - 06/04/2005 8:26 AM PDT [id number] 07/20/2004 [id number] [facility]: [facility] This patient called stating that he had removal of a proximal locking screw in his left hip which was thought as the possible etiology for his discomfort. This was done July 14, 2004. The patient is scheduled for a postoperative on August 01. He is just wanting us to be sure that the number of his return trips to [facility] is minimized as much as possible since he lives five hours away and has four children. I did discuss this with Dr. Fowler and then I called the patient back and spoke to him again in length. I explained to him per Dr. Fowler it is totally his option to return here to [facility] but Dr. Fowler cannot diagnose his problems or complaints over the phone. The patient stated that he understood this. He did want to make sure that his stitches would be coming out at the same time he comes in for this appointment and I assured him that they would and that we would do all we could to make it so that he does not have to make this long trip again. The patient did seem satisfied with this. Alicia Nuñez M.A. Isra Fowler M.D. MACIEL/araceli P [id number] cc: documented i n this encounter Plan of Treatment Not on filedocumented as of this encounter Visit Diagnoses Not on filedocumented in this encounter"
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
--- OUTSIDE RECORDS SUMMARY | ~2019-04-04 | XMS | Encounter Summary ---
Demographics + + + | Address | [address] | | | [place] [address] | + + + | Home Phone | | + + + | Preferred Language | Unknown | + + + | Marital Status | Single | + + + | Roman Catholic Affiliation | CHR | + + + | Race | White | + + + | Ethnic Group | Not or | + + + Author + + + | Author | [facility] | + + + | Organization | [facility] | + + + | Address | Unknown | + + + | Phone | Unavailable | + + + Support + + +---------+ + | Name | Relationship | Address | Phone | + + +---------+ + | Cristofer Medina | ECON | Unknown | | + + +---------+ + Care Team Providers + +------+ + | Care Mint Wafer Depositor Name | Role | Phone | + +------+ + PCP | Unavailable | + +------+ + Encounter Details +--------+ + + + + | Date | Type | Department | Care Team | Description | +--------+ + + + + | 01/23/ | Results | General Surgery | Ki Lopez MD | | | 2003 | Only | [address] | | | | | | [facility] | | | | | | Mailcode: [id number] | | | | | | Physicians [facility] | | | | | | [address], | | | | | | [place] [address] | | | | | | [phone] | | | +--------+ + + + [...] +--------+ + + + | HEMATOCRIT | Routin | 01/25/2004 | | Results for this | | | e | 5:55 PM | | procedure are in the | | | | PST | | results section. | + +--------+ + + + | CBC ONLY | Urgent | 01/24/2004 | | Results for this | | | | 7:22 AM | | procedure are in the | | | | PST | | results section. | + +--------+ + + + | COAGULOPATHY PANEL | Urgent | 01/24/2004 | | Results for this | | (INR,APTT,FIBRINOGEN | | 7:22 AM | | procedure are in the | | ) | | PST | | results section. | + +--------+ + + + | ETHANOL (ALCOHOL), | Urgent | 01/24/2004 | | Results for this | | BLOOD | | 7:22 AM | | procedure are in the | | | | PST | | results section. | + +--------+ + + + | GLUCOSE, PLASMA | Urgent | 01/24/2004 | | Results for this | | | | 7:22 AM | | procedure are in the | | | | PST | | results section. | + +--------+ + + + | BLOOD BANK PRODUCT | Routin | 01/24/2004 | | Results for this | | | e | 6:20 AM | | procedure are in the | | | | PST | | results section. | + +--------+ + + + | BLOOD BANK PRODUCT | Routin | 01/24/2004 | | Results for this | | | e | 6:20 AM | | procedure are in the | | | | PST | | results section. | + +--------+ + + + | TYPE AND CROSSMATCH | Routin | 01/24/2004 | | Results for this | | | e | 6:20 AM | | procedure are in the | | | | PST | | results section. | + +--------+ + + + documented in this encounter Results HEMATOCRIT (01/25/2004 5:55 PM PST) + + + + + + | Component | Value | Ref Range | Performed | Pathologist | | | | | At | Signature | + + + + + + | HEMATOCRIT | 29.9 (L) | 38.0 - 50.4 % | [...] | + + + + + | [facility] DEPARTMENT OF | [address] | [place] [address] | | | PATHOLOGY | [address] | | | + + + + + | [facility] DEPARTMENT OF | [address] | [place] [address] | | | PATHOLOGY | [address] | | | + + + + + CBC ONLY WITH PLATELET (01/24/2004 7:22 AM PST) + + + + + + | Component | Value | Ref Range | Performed | Pathologist | | | | | At | Signature | + + + + + + | WHITE CELL | 16.8 (H) | 4.4 - 11.0 K/cu | [facility] | | | COUNT | | mm | DEPARTMENT | | | | | | OF | | | | | | PATHOLOGY | | + + + + + + | RED CELL | 3.90 (L) | 4.20 - 5.90 | [facility] | | | COUNT | | M/cu mm | DEPARTMENT | | | | | | OF | | | | | | PATHOLOGY | | + + + + + + | HEMOGLOBIN | 11.9 (L) | 13.0 - 17.5 | [facility] | | | | | g/dL | DEPARTMENT | | | | | | OF | | | | | | PATHOLOGY | | + + + + + + | HEMATOCRIT | 34.7 (L) | 38.0 - 50.4 % | [facility] | | | | | | DEPARTMENT | | | | | | OF | | | | | | PATHOLOGY | | + + + + + + | MCV | 89.0 | 80.0 - 96.0 fL | [facility] | | | | | | DEPARTMENT | | | | | | OF | | | | | | PATHOLOGY | | + + + + + + | MCH | 30.4 | 28.5 - 32.3 pg | [facility] | | | | | | DEPARTMENT | | | | | | OF | | | | | | PATHOLOGY | | + + + + + + | MCHC | 34.1 | 33.4 - 35.5 | [facility] | | | | | g/dL | DEPARTMENT | | | | | | OF | | | | | | PATHOLOGY | | + + + + + + | RDW | 13.2 | 11.5 - 15.0 % | [facility] | | | | | | DEPARTMENT | | | | | | OF | | | | | | PATHOLOGY | | + + + + + + | PLATELET | 276 | 150 - 400 K/cu | [facility] | | | COUNT | | mm | DEPARTMENT | | | | | | OF | | | | | | PATHOLOGY | | + + + + + + | MPV | 7.5 | 7.4 - 10.4 fL | [facility] | | | | | [...] | + + + + + | [facility] | [address] [place] [address] | [place] [address] | | | PATHOLOGY | [address] | | | + + + + + | [facility] DEPARTMENT | [address] [place] [address] | [place] [address] | | | PATHOLOGY | [address] | | | + + + + + COAGULOPATHY PANEL (01/24/2004 7:22 AM PST) + + + + + + | Component | Value | Ref Range | Performed | Pathologist | | | | | At | Signature | + + + + + + | INR | 1.04Comment: | 0.90 - 1.20 INR | [facility] | | | | PT INR | | DEPARTMENT | | | | Therapeutic ranges for | | OF | | | | full | | PATHOLOGY | | | | anticoagulation: | | | | | | INR for | | | | | | Venous | | | | | | Thromboembolism | | | | | | | | | | | | (2.0-3.0)INR | | | | | | INR for most | | | | | | patients with mech. | | | | | | valves (2.5-3.5)I | | | | | | NR | | | | + + + + + + | APTT | 23.8 (L)Comment: | 26.0 - 36.0 | [facility] | | | | APTT | seconds | DEPARTMENT | | | | Therapeutic | | OF | | | | Range | | PATHOLOGY | | | | | | | | | | (75-120)sec | | | | | | Hepa | | | | | | rin levels of 0.35-0.7 | | | | | | U/mL | | | | + + + + + + | FIBRINOGEN | 280 | 200 - 450 mg/dL | [facility] | | | LEVEL | | | DEPARTMENT | | | [...] | + + + + + | [facility] DEPARTMENT OF | [address] | [place] [address] | | | PATHOLOGY | [address] | | | + + + + + | [facility] DEPARTMENT OF | [address] | [place] [address] | | | PATHOLOGY | [address] | | | + + + + + GLUCOSE, PLASMA (01/24/2004 7:22 AM PST) + +-------+ + + + | Component | Value | Ref Range | Performed | Pathologist | | | | | At | Signature | + +-------+ + + + | GLUCOSE, | 98 | 65 - 110 mg/dL | [facility] | | | PLASMA | | | DEPARTMENT | | | (LAB) | | | OF | | | | | | PATHOLOGY | | + +-------+ + + + + + | Specimen | + + | | + + + + + + + | Performing | Address | City/State/Zipcode | Phone Number | | Organization | | | | + + + + + | [facility] DEPARTMENT OF | [address] [facility] | [place] [address] | | | PATHOLOGY | [address] | | | + + + + + | [facility] DEPARTMENT OF | [address] [facility] | [place] [address] | | | PATHOLOGY | [address] | | | + + + + + ALCOHOL SCRN, SERUM (01/24/2004 7:22 AM PST) + +-------+ + + + | Component | Value | Ref Range | Performed | Pathologist | | | | | At | Signature | + +-------+ + + + | ETHANOL | 65 | mg/dL | [facility] | | | (ALCOHOL) | | | DEPARTMENT | | | | | | OF | | | | | | PATHOLOGY | | + +-------+ + + + + + | Specimen | + + | | + + + + + + + | Performing | Address | City/State/Zipcode | Phone Number | | Organization | | | | + + + + + | [facility] DEPARTMENT OF | [address] | [place] [address] | | | PATHOLOGY | [address] | | | + + + + + | [facility] DEPARTMENT OF | [address] | [place] [address] | | | PATHOLOGY | [address] | | | + + + + + BLOOD BANK PRODUCT (01/24/2004 6:20 AM PST) + + + + + + | Component | Value | Ref Range | Performed | Pathologist | | | | | At | Signature | + + + + + + | PRODUCT | PACKED CELLS | | [facility] | | | DESCRIPTION | | | DEPARTMENT | | | | | | OF | | | | | | PATHOLOGY | | + + + + + + | PRODUCT | [id number] | | [facility] | | | UNIT # | | | DEPARTMENT | | | | | | OF | | | | | | PATHOLOGY | | + + + + + + | UNIT ABO | A | | [facility] | | | | | | DEPARTMENT | | | | | | OF | | | | | | PATHOLOGY | | + + + + + + | UNIT RH | POS | | [facility] | | | | | | DEPARTMENT | | | | | | OF | | | | | | PATHOLOGY | | + + + + + + | STATUS OF | Released | | [facility] | | | UNIT | | | DEPARTMENT | | | [...] | + + + + + | [facility] DEPARTMENT OF | [address] [facility] | [place] [address] | | | PATHOLOGY | [address] | | | + + + + + | [facility] DEPARTMENT OF | [address] [facility] | [place] [address] | | | PATHOLOGY | [address] | | | + + + + + BLOOD BANK PRODUCT (01/24/2004 6:20 AM PST) + + + + + + | Component | Value | Ref Range | Performed | Pathologist | | | | | At | Signature | + + + + + + | PRODUCT | RED CELL LEUKOREDUCED | | [facility] | | | DESCRIPTION | | | DEPARTMENT | | | | | | OF | | | | | | PATHOLOGY | | + + + + + + | PRODUCT | [id number] | | [facility] | | | UNIT # | | | DEPARTMENT | | | | | | OF | | | | | | PATHOLOGY | | + + + + + + | UNIT ABO | A | | [facility] | | | | | | DEPARTMENT | | | | | | OF | | | | | | PATHOLOGY | | + + + + + + | UNIT RH | POS | | [facility] | | | | | | DEPARTMENT | | | | | | OF | | | | | | PATHOLOGY | | + + + + + + | STATUS OF | Released | | [facility] | | | UNIT | | | DEPARTMENT | | | [...] | + + + + + | [facility] DEPARTMENT OF | [address] | [place] [address] | | | PATHOLOGY | [address] | | | + + + + + | [facility] DEPARTMENT OF | [address] | [place] [address] | | | PATHOLOGY | [address] | | | + + + + + ANTIBODY SCREEN & CROSSMATCH (01/24/2004 6:20 AM PST) + +-------+ + + + | Component | Value | Ref Range | Performed | Pathologist | | | | | At | Signature | + +-------+ + + + | ABO GROUP | A | | [facility] | | | | | | DEPARTMENT | | | | | | OF | | | | | | PATHOLOGY | | + +-------+ + + + | RH TYPE | POS | | [facility] | | | | | | DEPARTMENT | | | | | | OF | | | | | | PATHOLOGY | | + +-------+ + + + | ANTIBODY | NEG | | [facility] | | | SCREEN | | | DEPARTMENT | | | | | | OF | | | | | | PATHOLOGY | | + +-------+ + + + + + | Specimen | + + | | + + + + + | Narrative | Performed At | + + + | SPEC. ASHWINIATES 01/27/04 @ 0700 | [facility] | | | DEPARTMENT OF | | | PATHOLOGY | + + + + + + + + | Performing | Address | City/State/Zipcode | Phone Number | | Organization | | | | + + + + + | [facility] DEPARTMENT OF | [address] | [place] [address] | | | PATHOLOGY | [address] | | | + + + + + | [facility] | [address] | [place] [address] | | | PATHOLOGY | [address] | | | + + + + + documented in this encounter Visit Diagnoses Not on filedocumented in this encounter"
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
--- OUTSIDE RECORDS SUMMARY | ~2019-04-04 | XMS | Clinical Summary ---
Demographics + + + | Address | [address] | | | [place] [address] | + + + | Home Phone | | + + + | Preferred Language | Unknown | + + + | Marital Status | Single | + + + | Muslim Affiliation | CHR | + + + [...] Team Providers + +------+ + | Care Crematorium Operator Name | Role | Phone | + +------+ + PP | Unavailable | + +------+ + Source Comments DENISJOSEFINA is fully live on both EpicCare Ambulatory and EpicCare InPatient.[facility] Allergies Not on File Medications Not on file Active Problems Not [...] recent travel history available. | + + Plan of Treatment + + + + + | Health Maintenance | Due Date | Last Done | Comments | + + + + + | Influenza (Flu) | | | | | vaccination (Season | 9 | | | | Ended) | | | | + + + + + Results Not on filefrom Last 3 Months Insurance + +--------+ +--------+-------+---------+------+ | Payer | Benefi | Subscriber | Effect | Phone | Address | Type | | | t Plan | ID | [place] | | | | | | / | | Dates | | | | | | Group | | | | | | + +--------+ +--------+-------+---------+------+ | AUTO INS OTHER | AUTO | xxxxxxxxxx | Effect | | | Auto | | | INS | | [place] | | | | | | OTHER | | for | | | | | | | | all | | | | | | | | dates | | | | + +--------+ +--------+-------+---------+------+ + +--------+ +--------+ + + | Guarantor Name | Accoun | Relation to | Date | Phone | Billing Address | | | t Type | Patient | of | | | | | | | | | | + +--------+ +--------+ + + | Nilesh Medina | Person | Self [birth year] | [address] | | | al/Fam | | 1975 | [phone] | [place] [address] | | | donte | | | 4 (Home) | | + +--------+ +--------+ + +"
--- OUTSIDE RECORDS SUMMARY | ~2019-04-04 | XMS | Encounter Summary ---
Demographics + + + | Address | [address] | | | [place] [address] | + + + | Home Phone | | + + + | Preferred Language | Unknown | + + + | Marital Status | Single | + + + | Moravian Affiliation | CHR | + + + | Race | White | + + + | Ethnic Group | Not or | + + + Author + + + | Author | [facility] | + + + | Organization | [facility] | + + + | Address | Unknown | + + + | Phone | Unavailable | + + + Support + + +---------+ + | Name | Relationship | Address | Phone | + + +---------+ + | Cristofer Wheat | ECON | Unknown | | + + +---------+ + Care Team Providers + +------+ + | Care Jacquard Loom Heddles Tier Name | Role | Phone | + [...] as of this encounter Progress Notes Interface, Sample Puller In - 06/04/2005 8:26 AM PDT [id number] 07/20/2004 [id number] [facility]: 07/20/2004 This patient called stating that he had removal of a proximal locking screw in his left hip which was thought as the possible etiology for his discomfort. This was done July 14, 2004. The patient is scheduled for a postoperative on August 01. He is just wanting us to be sure that the number of his return trips to [facility] is minimized as much as possible since he lives five hours away and has four children. I did discuss this with Dr. Fowler and then I called the patient back and spoke to him again in length. I explained to him per Dr. Fowler it is totally his option to return here to [facility] but Dr. Fowler cannot [...] Nuñez M.A. Isra Fowler M.D. MACIEL/araceli P [id number] cc: documented i n this encounter Plan of Treatment Not on filedocumented as of this encounter Visit Diagnoses Not on filedocumented in this encounter"
--- OUTSIDE RECORDS SUMMARY | ~2019-04-04 | XMS | Encounter Summary ---
Demographics + + + | Address | [address] | | | [place], [place] [address] | + + + | Home Phone | | + + + | Preferred Language | Unknown | + + + | Marital Status | | + + + | Gnosticist Affiliation | Unknown | + + + | Race | Unknown | + + + | Ethnic Group | Unknown | + + + Author + + + | Author | [facility] | + + + | Organization | [facility] | + + + | Address | Unknown | + + + | Phone | Unavailable | + + + Support + + +---------+ + | Name | Relationship | Address | Phone | + + +---------+ + | Gerry Medina | ECON | Unknown | | + + +---------+ + Care Team Providers + +------+ + | Care Telephonic Rn Name | Role | Phone | + +------+ + | Manuel Reyes | PCP | | + +------+ + Reason for Visit + + + | Reason | Comments | + + + | Follow-up | Left Hip | + + + [...] | | Surgery | L hip | [place] | [place] | | | | | diagnostic | Primary Care | [address] | | | | | inj results | [address] [place], | | | | | Procedures | [place] | [place] | | | | | ORTHO | [address] | [address] | | | | | FOLLOW UP | [place], | Phone: | | | | | | [place] [address] | [phone] | | | | | | Phone: | Fax: | | | | | | [phone] | [phone] | | | | | | Fax: | | | | | | | [phone] | | +--------+--------+ + + + + Encounter Details +--------+---------+ + + + | Date | Type | Department | Care Team | Description | +--------+---------+ + + + | 03/25/ | Office | [facility] | Darrick Potter, | Tear of left | | 2019 | Visit | [facility] | MD [address] | alfonzo labnallely, | | | | MEDICINE [place] | [place] [address] | subsequent encounter | | | | [address] | [phone] | (Primary Dx) | | | | [place] | | | | | | [address] | | | | | | [phone] | | | +--------+---------+ + + + [...] + + + | Blood Pressure | 130/70 | 03/25/2019 3:29 PM PDT | + + + + | Pulse | 55 | 03/25/2019 3:29 PM PDT | + + + + | Temperature | - | - | + + + + | Respiratory Rate | - | - | + + + + | Oxygen Saturation | 96% | 03/25/2019 3:29 PM PDT | + + + + | Inhaled Oxygen | - | - | | Concentration | | | + + + + | Weight | 65.8 kg (145 lb) | 03/25/2019 3:29 PM PDT | + + + + | Height | 177.8 cm (5' 10") | 03/25/2019 3:29 PM PDT | + + + + | Body Mass Index | 20.81 | 03/25/2019 3:29 PM PDT | + + + + in this encounter Progress Notes Darrick Potter MD - 03/25/2019 3:05 PM PDTFormatting of this note may be different from the original. [facility] Service: Orthopedic Surgery Clinic Note History: Nilesh Medina is a 43 y.o. male presenting for follow-up for his left hip. He had a diagnostic injection and he states this initially provided excellent relief. He c ontinued to have improvement in his pain next several days. The pain has subsequently retur ubaldo and is unchanged from his previous exam. Review of Systems: Review of Systems Musculoskeletal: Positive for gait problem and joint swelling. Neurological: Positive for weakness and numbness. Psychiatric/Behavioral: Positive for sleep disturbance. The patient is nervous/anxious. All other systems reviewed and are negative. OBJECTIVE Vital Signs: Vitals: 03/25/19 1529 BP: 130/70 Pulse: 55 SpO2: 96% Exam: Left hip Skin is intact without erythema, ecchymosis, edema, incisions are well-healed Anterior and posterior tenderness to palpation Full hip flexion, extension, abduction, adduction, internal rotation with pain 5 out of 5 strength with range of motion Pain with Stinchfield Pain with Jono's test Pain with logroll Palpable dorsalis pedis pulse Sensation is intact to light touch Xray: No results found. ASSESSMENT Left hip acetabular labral tear PLAN I discussed again with the patient his diagnosis. He did appear to get good results from t he diagnostic injection. Given this I would recommend arthroscopic labral repair of his lef t hip. We discussed the details of surgery including the perioperative and postoperative co urse. He would like to go home and think about this and will call us if he would like to pr oceed with surgery. All questions were answered and he understood this plan. Darrick Potter MD has created this entry using [employer] Voice Recognition software a [employer] macros. The entry has been reviewed and there may still exist sound alike word err ors.in this encounter Plan of Treatment Not on fileas of this encounter Visit Diagnoses + + | Diagnosis | + + | Tear of left acetabular labrum, subsequent encounter - Primary | + +
--- OUTSIDE RECORDS SUMMARY | ~2019-04-04 | XMS | Encounter Summary ---
Demographics + + + | Address | [address] | | | [place] [address] | + + + | Home Phone | | + + + | Preferred Language | Unknown | + + + | Marital Status | Single | + + + | Advent Affiliation | CHR | + + + [...] Team Providers + +------+ + | Care Group Dynamics Instructor Name | Role | Phone | + [...] | Transcriptions | + + | Interface, Construction [employer] In - 10/28/2005 6:01 AM PST Date: | | 07/14/2004Attending Surgeon: Isra Fowler, | | AmandaManager Sterile(s):Preoperative Diagnosis(es):Pain, left hip, status post intramedullary | [...] was no blood loss. Nospecimen.GENEVA Rolle / [id number] / [id number] | | / [id number] / T: 07/15/2004 | |discomfort. | | [...] | | | |TV / HS | |[id number] / [id number] / [id number] / | | | | | + + documented in this encounter Visit Diagnoses Not on filedocumented in this encounter"
--- OUTSIDE RECORDS SUMMARY | ~2019-04-04 | XMS | Encounter Summary ---
Demographics + + + | Address | [address] | | | [place] [address] | + + + | Home Phone [...] Providers + +------+ + | Care Supervisor Beet End Name | Role | Phone | + +------+ + PCP | Unavailable | + +------+ + Encounter Details +--------+ + + + + | Date | Type | Department | Care Team | Description | +--------+ + + + + | 01/23/ | Results | | Kelly Manning MD | | | 2003 | Only | | [address] | | | | | | [address] | | | | | | [place] [address] | | | | | | [phone] | | | | | | | [...] Results for this | | | | 6:40 AM | | procedure are in the | | | | PST | | results section. | + +--------+ + + + documented in this encounter Results CT HEAD WO CONTRAST (01/24/2004 6:40 AM PST) + + + + + + | Component | Value | Ref Range | Performed | Pathologist | | | | | At | Signature | + + + + + + | CT HEAD WO | Radiologist 1: OLIVA, | | | | | CONTRAST | TAIWO Mac M.D.CT OF THE | | | | | | HEAD: 01/24/2004 D | | | | | | ictated 01/24/2004 | | | | | | CLINICAL | | | | | | INFORMATION: Known | | | | | | hemorrhage. | | | | | | TECHNIQUE: | | | | | | Axial images | | | | | | were obtained through | | | | | | the headwithout | | | | | | intravenous contrast. | | | | | | COMPARISON: | | | | | | No studies | | | | | | are available for | | | | | | comparison. | | | | | | FINDINGS: | | | | | | The lowest | | | | | | image excludes the | | | | | | lowest portion offoramen | | | | | | magnum, but the tonsils | | | | | | appear | | | | | | low-lying. Patient | | | | | | motiondegrades some of | | | | | | the images. There are | | | | | | multiple foci of | | | | | | parenchymalhigh | | | | | | attenuation, some with | | | | | | surrounding | | | | | | edema. There is | | | | | | probablyblood along the | | | | | | tentorium and in the | | | | | | corpus | | | | | | callosum. There is | | | | | | scalpedema or | | | | | | hematoma. There is no | | | | | | acute osseous | | | | | | abnormality, but | | | | | | theremay be old nasal | | | | | | bone fractures. | | | | | | IMPRESSION: Multiple | | | | | | foci of hemorrhagic | | | | | | contusions and probable | | | | | | subdural bloodalong the | | | | | | tentorium. The lowest | | | | | | portion of foramen | | | | | | magnum is excludedfrom | | | | | | this study. There may | | | | | | be a Chiari I | | | | | | malformation. END OF | | | | | | IMPRESSION: | | | | + + + + + + + + | Specimen | + + | | + + + +---------+ + + | Performing | Address | City/State/Zipcode | Phone Number | | Organization | | | | + +---------+ + + | [facility] DEPARTMENT OF | | | | | RADIOLOGY | | | | + +---------+ + + documented in this encounter Visit Diagnoses Not on filedocumented in this encounter"
--- OUTSIDE RECORDS SUMMARY | ~2019-04-04 | XMS | Encounter Summary ---
Demographics + + + | Address | [address] | | | [place] [address] | + + + | Home Phone | | + + + | Preferred Language | Unknown | + + + | Marital Status | Single | + + + | Druze Affiliation | CHR | + + + | Race | White | + + + | Ethnic Group | Not or | + + + Author + + + | Author | [facility] | + + + | Organization | [facility] | + + + | Address | Unknown | + + + | Phone | Unavailable | + + + Support + + +---------+ + | Name | Relationship | Address | Phone | + + +---------+ + | Cristofer Medina | ECON | Unknown | | + + +---------+ + Care Team Providers + +------+ + | Care Human Resource Advisor Name | Role | Phone | + [...] | | | | encounter | [place] [address] | | | | | | Procedures | Phone: | | | | | | EMG/NERVE | [phone] | | | | | | CONDUCTION | Fax: | | | | | | STUDIES,ADUL | [phone] | | | | | | T [...] | 2015 | Referral | EMG at [facility] 8th Floor | Jarrod Bird MD | | | | Order | [address] | [address] | | | | | Mail Code: CH8E | [place] [address] | | | | | [facility] | [phone] | | | | | and [facility], [facility] | | | | | | floor [place], [place] | | | | | | [address] | | | | | | [phone] | | | +--------+ + + + [...]
--- OUTSIDE RECORDS SUMMARY | ~2019-04-04 | XMS | Encounter Summary ---
Demographics + + + | Address | [address] | | | [place], [place] [address] | + + + | Home Phone | | + + + | Preferred Language | Unknown | + + + | Marital Status | | + + + | Sabianist Affiliation | Unknown | + + + | Race | Unknown | + + + | Ethnic Group | Unknown | + + + Author + + + | Author | [facility] | + + + | Organization | [facility] | + + + | Address | Unknown | + + + | Phone | Unavailable | + + + Support + + +---------+ + | Name | Relationship | Address | Phone | + + +---------+ + | Gerry Medina | ECON | Unknown | | + + +---------+ + Care Team Providers + +------+ + | Care Program Management Specialist Name | Role | Phone | + +------+ + | Manuel Reyes | PCP | | + +------+ + Reason for Visit + + + | Reason | Comments | + + + | Hip Pain | | + + + Surgical (Routine) +--------+ + + + + [...] | | | acetabular | [address] | [address] | | | | | roni, | [facility] | [place] | | | | | initial | [address] | [address] | | | | | encounter | Phone: | Phone: | | | | | | [phone] | [phone] | | | | | | Fax: | Fax: | | | | | | [phone] | [phone] | +--------+ + + + + + Encounter Details +--------+---------+ + + + | Date | Type | Department | Care Team | Description | +--------+---------+ + + + | 03/07/ | Office | [facility] | Obie Aceves, | | | 2019 | Visit | [facility] | [address] | | | | | MEDICINE [address] | [place] [address] | | | | | [address] | [phone] | | | | | [place], [place] | | | | | | [address] | | | | | | [phone] | | | +--------+---------+ + + + [...] + + + | Blood Pressure | - | - | + + + + | Pulse | - | - | + + + + | Temperature | - | - | + + + + | Respiratory Rate | - | - | + + + + | Oxygen Saturation | - | - | + + + + | Inhaled Oxygen | - | - | | Concentration | | | + + + + | Weight | 63 kg (139 lb) | 03/07/2019 1:21 PM PDT | + + + + | Height | 177.8 cm (5' 10") | 03/07/2019 1:21 PM PDT | + + + + | Body Mass Index | 19.94 | 03/07/2019 1:21 PM PDT | + + + + in this encounter Plan of Treatment Not on fileas of this encounter Visit Diagnoses Not on filein this encounter
--- OUTSIDE RECORDS SUMMARY | ~2019-04-04 | XMS | Encounter Summary ---
Demographics + + + | Address | [address] | | | [place] [address] | + + + | Home Phone | | + + + | Preferred Language | Unknown | + + + | Marital Status | Single | + + + | Yazidism Affiliation | CHR | + + + | Race | White | + + + | Ethnic Group | Not or | + + + Author + + + | Author | [facility] | + + + | Organization | [facility] | + + + | Address | Unknown | + + + | Phone | Unavailable | + + + Support + + +---------+ + | Name | Relationship | Address | Phone | + + +---------+ + | Cristofer Medina | ECON | Unknown | | + + +---------+ + Care Team Providers + +------+ + | Care Sterile Process Coordinator Name | Role | Phone | + +------+ + PCP | Unavailable | + +------+ + Encounter Details +--------+ + + + + | Date | Type | Department | Care Team | Description | +--------+ + + + + | 01/24/ | Results | General Surgery | Jarrell Bauer, | | | 2003 | Only | [address] | [address] | | | | | [facility] | [facility] | | | | | Mailcode: [address] | [place], [place] | | | | | Physicians Sandra | [address] | | | | | [address] [place], | [phone] | | | | | [place] [address] | | | | | | [phone] | | | +--------+ + + + [...] for this | | | e | 4:01 PM | | procedure are in the | | | | PST | | results section. | + +--------+ + + + documented in this encounter Results HEMATOCRIT (01/25/2004 4:01 PM PST) + + + + + + | Component | Value | Ref Range | Performed | Pathologist | | | | | At | Signature | + + + + + + | HEMATOCRIT | See cmnt | 38.0 - 50.4 % | [facility] | | | | | | DEPARTMENT | | | | | | OF | | | | | | PATHOLOGY | | + + + + + + + + | Specimen | + + | | + + + + + | Narrative | Performed At | + + + | Patient unavailable, specimen not obtained | [facility] | | | DEPARTMENT OF | | | PATHOLOGY | + + + + + + + + | Performing | Address | City/State/Zipcode | Phone Number | | Organization | | | | + + + + + | [facility] DEPARTMENT [facility] | [address] | [place] [address] | | | PATHOLOGY | [address] | | | + + + + + | [facility]PARTMENT [facility] | [address] [facility] [address] [address] | [place] [address] | | | PATHOLOGY | [address] | | | + + + + + documented in this encounter Visit Diagnoses Not on filedocumented in this encounter"
--- OUTSIDE RECORDS SUMMARY | ~2019-04-04 | XMS | Encounter Summary ---
Demographics + + + | Address | [address] | | | [place] [address] | + + + | Home Phone | | + + + | Preferred Language | Unknown | + + + | Marital Status | Single | + + + | Amish Affiliation | CHR | + + + [...] Team Providers + +------+ + | Care Mortgage Analyst Name | Role | Phone | + +------+ + PCP | Unavailable | + +------+ + Encounter Details +--------+ + + + + | Date | Type | Department | Care Team | Description | +--------+ + + + + | // | Results | | Obie Vo, | | | 2003 | Only | | MD | | +--------+ + + + + [...] + +--------+ + + + | X-RAY SPINE THORACIC | Routin | 01/24/2004 | | Results for this | | 2 VIEWS | e | 6:40 PM | | procedure are in the | | | | PST | | results section. | + +--------+ + + + | X-RAY SPINE | Routin | 01/24/2004 | | Results for this | | LUMBOSACRAL 2 VIEWS | e | 6:40 PM | | procedure are in the | | | | PST | | results section. | + +--------+ + + + | BASIC METABOLIC SET | Urgent | 01/24/2004 | | Results for this | | (NA, K, CL, TCO2, | | 8:45 AM | | procedure are in the | | BUN, CR, GLU, CA) | | PST | | results section. | + +--------+ + + + | PHOSPHORUS, PLASMA | Urgent | 01/24/2004 | | Results for this | | | | 8:45 AM | | procedure are in the | | | | PST | | results section. | + +--------+ + + + | MAGNESIUM, PLASMA | Urgent | 01/24/2004 | | Results for this | | | | 8:45 AM | | procedure are in the | | | | PST | | results section. | + +--------+ + + + documented in this encounter Results SPINE LUMBOSACRAL 2 VIEWS (01/24/2004 6:40 PM PST) + + + + + + | Component | Value | Ref Range | Performed | Pathologist | | | | | At | Signature | + + + + + + | SPINE | Radiologist 1: HALIE, | | | | | LUMBOSACRAL | Tesfaye ANDRES, | | | | | 2 VIEWS | M.D.-Radiologist 2: | | | | | | OBIE BROWN: | | | | | | Lumbar spine AP and | | | | | | lateral views | | | | | | COMPARISON: None | | | | | | FINDINGS: There is | | | | | | normal alignment of the | | | | | | lumbar vertebral | | | | | | bodies. Minimaldegene | | | | | | rative disc disease is | | | | | | seen at the | | | | | | thoracolumbar | | | | | | junction.Minimal chronic | | | | | | wedging of T12 is | | | | | | noted. The vertebral | | | | | | body anddisc heights are | | | | | | otherwise | | | | | | maintained. No | | | | | | fractures | | | | | | areidentified. The | | | | | | pedicles and neural | | | | | | arches are intact. | | | | | | IMPRESSION: 1. No | | | | | | lumbar spine fracture or | | | | | | subluxation. | | | | + + + + + + + + | Specimen | + + | | + + + +---------+ + + | Performing | Address | City/State/Zipcode | Phone Number | | Organization | | | | + +---------+ + + | [facility] DEPARTMENT OF | | | | | RADIOLOGY | | | | + +---------+ + + SPINE THORACIC 2 VIEWS (01/24/2004 6:40 PM PST) + + + + + + | Component | Value | Ref Range | Performed | Pathologist | | | | | At | Signature | + + + + + + | SPINE | Radiologist 1: HALIE, | | | | | THORACIC 2 | Tesfaye ANDRES | | | | | NANCY | Amanda-Radiologist 2: | | | | | | OBIE BROWN: | | | | | | Thoracic spine AP and | | | | | | lateral views | | | | | | COMPARISON: None | | | | | | FINDINGS: Schraymondrl's node | | | | | | deformities are seen in | | | | | | the endplates of | | | | | | multiplemidthoracic | | | | | | vertebral bodies with | | | | | | associated mild chronic | | | | | | anteriorwedging. Ther | | | | | | e is 34 degrees of | | | | | | kyphosis measured from | | | | | | T4 [id number]. This | | | | | | is compatible | | | | | | with mild | | | | | | Scheuermann's type | | | | | | changes.Minimal spurring | | | | | | is seen throughout the | | | | | | mid thoracic | | | | | | spine. Nofractures | | | | | | are identified. The | | | | | | pedicles are intact. | | | | | | There is noparaspinal | | | | | | soft tissue mass. | | | | | | IMPRESSION: 1. No | | | | | | fracture or subluxation. | | | | | | 2. Scheuermann's | | | | | | type changes in the | | | | | | midthoracic spine. | | | | + + + + + + + + | Specimen | + + | | + + + +---------+ + + | Performing | Address | City/State/[facility] | Phone Number | | Organization | | | | + +---------+ + + | [facility] DEPARTMENT OF | | | | | RADIOLOGY | | | | + +---------+ + + BASIC METABOLIC SET (01/24/2004 8:45 AM PST) + +---------+ + + + | Component | Value | Ref Range | Performed | Pathologist | | | | | At | Signature | + +---------+ + + + | GLUCOSE, | 70 | 65 - 110 mg/dL | [facility] | | | PLASMA | | | DEPARTMENT | | | (LAB) | | | OF | | | | | | PATHOLOGY | | + +---------+ + + + | BUN, PLASMA | 8 | 6 - 20 mg/dL | [facility] | | | (LAB) | | | DEPARTMENT | | | | | | OF | | | | | | PATHOLOGY | | + +---------+ + + + | CREATININE | 0.5 (L) | 0.7 - 1.3 mg/dL | [facility] | | | PLASMA | | | DEPARTMENT | | | (LAB) | | | OF | | | | | | PATHOLOGY | | + +---------+ + + + | SODIUM, | 142 | 136 - 145 | [facility] | | | PLASMA | | mmol/L | DEPARTMENT | | | (LAB) | | | OF | | | | | | PATHOLOGY | | + +---------+ + + + | POTASSIUM, | 3.2 (L) | 3.5 - 5.1 | [facility] | | | PLASMA | | mmol/L | DEPARTMENT | | | (LAB) | | | OF | | | | | | PATHOLOGY | | + +---------+ + + + | CHLORIDE, | 118 (H) | 98 - 107 mmol/L | [facility] | | | PLASMA | | | DEPARTMENT | | | (LAB) | | | OF | | | | | | PATHOLOGY | | + +---------+ + + + | TOTAL CO2, | 17 (L) | 23 - 29 mmol/L | [facility] | | | PLASMA | | | DEPARTMENT | | | (LAB) | | | OF | | | | | | PATHOLOGY | | + +---------+ + + + | CALCIUM, | 5.6 (*) | 8.5 - 10.5 | [facility] | | | PLASMA | | mg/dL | DEPARTMENT | | | (LAB) | | | OF | | | | | | PATHOLOGY | | + +---------+ + + + + + | Specimen | + + | | + + + + + | Narrative | Performed At | + + + | [id number] [place] Checked and phoned. | [facility] | | | DEPARTMENT OF | | | PATHOLOGY | + + + + + + + + | Performing | Address | City/State/Zipcode | Phone Number | | Organization | | | | + + + + + | [facility] | [address] | [place] [address] | | | PATHOLOGY | [address] | | | + + + + + | [facility] | [facility] [address] | [place] [address] | | | PATHOLOGY | [address] | | | + + + + + MAGNESIUM, PLASMA (01/24/2004 8:45 AM PST) + +---------+ + + + | Component | Value | Ref Range | Performed | Pathologist | | | | | At | Signature | + +---------+ + + + | MAGNESIUM,P | 1.3 (L) | 1.8 - 2.5 mg/dL | [facility] | | | LASMA | | | DEPARTMENT | | | | | | OF | | | | | | PATHOLOGY | | + +---------+ + + + + + | Specimen | + + | | + + + + + | Narrative | Performed At | + + + | [id number] [place] Checked and phoned. | [facility] | | | DEPARTMENT OF | | | PATHOLOGY | + + + + + + + + | Performing | Address | City/State/Zipcode | Phone Number | | Organization | | | | + + + + + | [facility] | [address] [facility] | [place] [address] | | | PATHOLOGY | [address] | | | + + + + + | [facility] | [address] [facility] | [place] [address] | | | PATHOLOGY | [address] | | | + + + + + PHOSPHORUS, PLASMA (01/24/2004 8:45 AM PST) + +---------+ + + + | Component | Value | Ref Range | Performed | Pathologist | | | | | At | Signature | + +---------+ + + + | PHOSPHORUS, | 1.7 (L) | 2.4 - 4.7 mg/dL | [facility] | | | PLASMA | | | DEPARTMENT | | | (LAB) | | | OF | | | | | | PATHOLOGY | | + +---------+ + + + + + | Specimen | + + | | + + + + + | Narrative | Performed At | + + + | [id number] [place] Checked and phoned. | [facility] | | | DEPARTMENT OF | | | PATHOLOGY | + + + + + + + + | Performing | Address | City/State/Zipcode | Phone Number | | Organization | | | | + + + + + | [facility] | [address] | [place] [address] | | | PATHOLOGY | [address] | | | + + + + + | [facility] | [address] | [place] [address] | | | PATHOLOGY | [address] | | | + + + + + documented in this encounter Visit Diagnoses Not on filedocumented in this encounter"
--- OUTSIDE RECORDS SUMMARY | ~2019-04-04 | XMS | Encounter Summary ---
Demographics + + + | Address | [address] | | | [place] [address] | + + + | Home Phone | | + + + | Preferred Language | Unknown | + + + | Marital Status | Single | + + + | Denominational Affiliation | CHR | + + + [...] Team Providers + +------+ + | Care Aoc Director Combat Plans Officer Name | Role | Phone | + +------+ + PCP | Unavailable | + +------+ + Encounter Details +--------+ + + + + | Date | Type | Department | Care Team | Description | +--------+ + + + + | 01/31/ | Orders Only | | Lab, Vascular | | | 2004 | | | [...] | + +--------+ + + + | VASCULAR FLOW | | 02/01/2004 | | | | IMAGING, NONCARDIAC | | | | | | - VASC LAB | | | | | + +--------+ + + + documented in this encounter Visit Diagnoses Not on filedocumented in this encounter"
--- OUTSIDE RECORDS SUMMARY | ~2019-04-04 | XMS | Encounter Summary ---
Demographics + + + | Address | [address] | | | [place] [address] | + + + | Home Phone | | + + + | Preferred Language | Unknown | + + + | Marital Status | Single | + + + | Restoration Affiliation | CHR | + + + | Race | White | + + + | Ethnic Group | Not or | + + + Author + + + | Author | [facility] | + + + | Organization | [facility] | + + + | Address | Unknown | + + + | Phone | Unavailable | + + + Support + + +---------+ + | Name | Relationship | Address | Phone | + + +---------+ + | Cristofer Medina | ECON | Unknown | | + + +---------+ + Care Team Providers + +------+ + | Care Beamster Name | Role | Phone | + +------+ + PCP | Unavailable | + +------+ + Encounter Details +--------+ + + + + | Date | Type | Department | Care Team | Description | +--------+ + + + + | 07/18/ | Office | [facility] | Note, [...] as of this encounter 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 He says that he would like to know how the surgery went and also reports that he is in a lot of pain and the Vicodin does not seem to be strong enough. After speaking with Dr. Fowler I told the patient that he said the surgery went fine. Dr. Fowler does not feel that the patient should require anything stronger than Vicodin. He did agree as long as the patient is not receiving narcotics from any other physicians to refill his Vicodin one time only. I did verify that the patient received OxyContin and oxycodone quantity of 10 tablets each only on July 08, 2004, from Dr. Youssef in [place]. This was prior to his surgery and that was okayed by Dr. Fowler for him still to get the one refill on Vicodin. He has received no other narcotics except the Vicodin quantity of [address] Fowler had discharged him with from the hospital. I have called in a [facility] [phone]. Alicia Nuñez M.A. Isra Fowler M.D. SB/x54 P [id number] documented i n this encounter Plan of Treatment Not on filedocumented as of this encounter Visit Diagnoses Not on filedocumented in this encounter"
--- OUTSIDE RECORDS SUMMARY | ~2019-04-04 | XMS | Encounter Summary ---
Demographics + + + | Address | [address] | | | [place] [address] | + + + | Home Phone | | + + + | Preferred Language | Unknown | + + + | Marital Status | Single | + + + | Sabianism Affiliation | CHR | + + + | Race | White | + + + | Ethnic Group | Not or | + + + Author + + + | Author | [facility] | + + + | Organization | [facility] | + + + | Address | Unknown | + + + | Phone | Unavailable | + + + Support + + +---------+ + | Name | Relationship | Address | Phone | + + +---------+ + | Cristofer Medina | ECON | Unknown | | + + +---------+ + Care Team Providers + +------+ + | Care Filter Operator Name | Role | Phone | [...]
--- OUTSIDE RECORDS SUMMARY | ~2019-04-04 | XMS | Encounter Summary ---
Demographics + + + | Address | [address] | | | [place] [address] | + + + | Home Phone [...] Author + + + | Author | [facility] | + + + | Organization | [facility] | + + + | Address | Unknown | + + + | Phone | Unavailable | + + + Support + + +---------+ + | Name | Relationship | Address | Phone | + + +---------+ + | Cristofer Medina | ECON | Unknown | | + + +---------+ + Care Team Providers + +------+ + | Care Professor Of Sociology Name | Role | Phone | + +------+ + PCP | Unavailable | + +------+ + Encounter Details +--------+ + + + + | Date | Type | Department | Care Team | Description | +--------+ + + + + | 08/01/ | Office | [facility] | Note, [...] as of this encounter 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 Medina is status post removal of his proximal locking screw from his femoral nail. He thinks he is a bit better. However, he still has multiple complaints of pain about his hip. Therefore, I x-ray his hip to make sure there is nothing missed and I don't see anything unusual. I told him he needs to give it a couple of months to see if it will improve. I did not prescribe any narcotics to him today and have told him he needs to get those from his primary care doctor. I will be happy to see him back again in two to three months if he fails to show improvement. I was not optimistic that removing this interlocking screw was going to be of much benefit to him but have no explanation for his ongoing complaints of pain. Isra Fowler M.D. TV/x38 P [id number] cc: documented i n this encounter Plan of Treatment Not on filedocumented as of this encounter Visit Diagnoses Not on filedocumented in this encounter"
--- OUTSIDE RECORDS SUMMARY | ~2019-04-04 | XMS | Encounter Summary ---
Demographics + + + | Address | [address] | | | [place] [address] | + + + | Home Phone | | + + + | Preferred Language | Unknown | + + + | Marital Status | Single | + + + | Bahai Affiliation | CHR | + + + [...] Team Providers + +------+ + | Care Brewery Technician Name | Role | Phone | + [...]
--- OUTSIDE RECORDS SUMMARY | ~2019-04-04 | XMS | Encounter Summary ---
Demographics + + + | Address | [address] | | | [place], [place] [address] | + + + | Home Phone | | + + + | Preferred Language | Unknown | + + + | Marital Status | | + + + | Jain Affiliation | Unknown | + + + | Race | Unknown | + + + | Ethnic Group | Unknown | + + + Author + + + | Author | [facility] | + + + | Organization | [facility] | + + + | Address | Unknown | + + + | Phone | Unavailable | + + + Support + + +---------+ + | Name | Relationship | Address | Phone | + + +---------+ + | Gerry Medina | ECON | Unknown | | + + +---------+ + Care Team Providers + +------+ + | Care Armored Car Guard And Driver Name | Role | Phone | + [...] + + | 03/11/ | Telephone | [facility] | Vicky Ferrell, | Referral | | 2018 | | [facility] | [address] | | | | | MEDICINE [facility] | | | | | | [address] | | | | | | [place] | | | | | | [address] | | | | | | [phone] | | | +--------+ + + + [...] [facility] | [address] | [place] [address] | | + + + + + in this encounter Visit Diagnoses + + | Diagnosis | + + | Tear of left acetabular labrum, initial encounter - Primary | + +"
--- OUTSIDE RECORDS SUMMARY | ~2019-04-04 | XMS | Encounter Summary ---
Demographics + + + | Address | [address] | | | [place], [place] [address] | + + + | Home Phone | | + + + | Preferred Language | Unknown | + + + | Marital Status | | + + + | Mormon Affiliation | Unknown | + + + | Race | Unknown | + + + | Ethnic Group | Unknown | + + + Author + + + | Author | [facility] | + + + | Organization | [facility] | + + + | Address | Unknown | + + + | Phone | Unavailable | + + + Support + + +---------+ + | Name | Relationship | Address | Phone | + + +---------+ + | Gerry Medina | ECON | Unknown | | + + +---------+ + Care Team Providers + +------+ + | Care Project Manager Entertainment And Media Name | Role | Phone | + [...] | | | | | roni, | [place], [place] | [place], [place] | | | | | initial | [address] | [address] | | | | | encounter | Phone: | Phone: | | | | | | [phone] | [phone] | | | | | | Fax: | Fax: | | | | | | [phone] | [phone] | +--------+ + + + + + [...] | inj results | [address] [place], | | | | | Procedures | [place] | [place] | | | | | ORTHO | [address] | [address] | | | | | FOLLOW UP | [place], | Phone: | | | | | | [place] [address] | [phone] | | | | | | Phone: | Fax: | | | | | | [phone] | [phone] | | | | | | Fax: | | | | | | | [phone] | | +--------+--------+ + + + + Encounter Details +--------+---------+ + + + | Date | Type | Department | Care Team | Description | +--------+---------+ + + + | 02/28/ | Office | [facility] | Darrick Potter, | Pain of left hip | | 2019 | Visit | [facility] | [address] | joint (Primary Dx); | | | | MEDICINE [place] | [place] [address] | Tear of left | | | | [address] | [phone] | acetabular labrum, | | | | [place], [place] | | initial encounter | | | | [address] | | | | | | [phone] | | | +--------+---------+ + + + [...] note may be different from the original. [facility]opaedic [facility] Sports Medicine Service: Orthopedic [...] Potter MD has created this entry using [employer] Voice Recognition software a [employer]. The entry has been reviewed and there [...]
--- OUTSIDE RECORDS SUMMARY | ~2019-04-04 | XMS | Encounter Summary ---
Demographics + + + | Address | [address] | | | [place] [address] | + + + | Home Phone | | + + + | Preferred Language | Unknown | + + + | Marital Status | Single | + + + | Adventism Affiliation | CHR | + + + | Race | White | + + + | Ethnic Group | Not or | + + + Author + + + | Author | [facility] | + + + | Organization | [facility] | + + + | Address | Unknown | + + + | Phone | Unavailable | + + + Support + + +---------+ + | Name | Relationship | Address | Phone | + + +---------+ + | Cristofer Medina | ECON | Unknown | | + + +---------+ + Care Team Providers + +------+ + | Care Engineering Production Worker Name | Role | Phone | + [...] as of this encounter Progress Notes Interface, Insurance Processor In - 06/04/2005 8:26 AM PDT [id number] 07/18/2004 [id number] [facility] Date: 07/18/2004 Orthopedic Clinic This patient called [...] July 08, 2004, from Dr. Youssef in [place]. This was prior to his surgery and that was okayed by Dr. Fowler for him still to get the one refill on Vicodin. He has received no other narcotics except the Vicodin quantity of [address] Fowler had discharged him with from the hospital. I have called in a ref[facility] [phone]. Alicia Nuñez M.A. Isra Fowler M.D. SB/x54 P [id number] documented i n this encounter Plan of Treatment Not on filedocumented as of this encounter Visit Diagnoses Not on filedocumented in this encounter"
--- OUTSIDE RECORDS SUMMARY | ~2019-04-04 | XMS | Encounter Summary ---
Demographics + + + | Address | [address] | | | [place] [address] | + + + | Home Phone | | + + + | Preferred Language | Unknown | + + + | Marital Status | Single | + + + | Anabaptism Affiliation | CHR | + + + [...] Team Providers + +------+ + | Care Vision Specialist Name | Role | Phone | [...] | | + +---------+ + + | [facility] DEPARTMENT OF | | | | | [...] | | | | | | T4 [id number]. This | | | | | | [...] Performed At | + + + | [id number] [place] Checked and phoned. | [facility] | | | DEPARTMENT OF | | | PATHOLOGY | + + + + + + + + | Performing | Address | City/State/Zipcode | Phone Number | | Organization | | | | + + + + + | [facility] | [address] | [place] [address] | | | PATHOLOGY | [address] | | | + + + + + | [facility] | [facility] [address] | [place] [address] | | | PATHOLOGY | [address] [...] Performed At | + + + | [id number] [place] Checked and phoned. | [facility] | | | DEPARTMENT OF | | | PATHOLOGY | + + + + + + + + | Performing | Address | City/State/Zipcode | Phone Number | | Organization | | | | + + + + + | [facility] | [address] | [place] [address] | | | PATHOLOGY | [address] | | | + + + + + | [facility] | [address] [facility] | [place] [address] | | | PATHOLOGY | [address] [...] Performed At | + + + | [id number] [place] Checked and phoned. | [facility] | | | DEPARTMENT OF | | | PATHOLOGY | + + + + + + + + | Performing | Address | City/State/Zipcode | Phone Number | | Organization | | | | + + + + + | [facility] DEPARTMENT | [address] | [place] [address] | | | PATHOLOGY | [address] | | | + + + + + | [facility] DEPARTMENT OF | [address] | [place] [address] | | | PATHOLOGY | [address] | | | + + + + + documented in this encounter Visit Diagnoses Not on filedocumented in this encounter"
--- OUTSIDE RECORDS SUMMARY | ~2019-04-04 | XMS | Encounter Summary ---
Demographics + + + | Address | [address] | | | [place] [address] | + + + | Home Phone [...] Team Providers + +------+ + | Care Malted Milk Supervisor Name | Role | Phone | [...] | Transcriptions | + + | Interface, Escape Wheel Tooth Cutter In - 10/28/2005 6:01 AM PST Date: | | 01/24/2004Attending Surgeon: Isra Fowler M.D.Flying Shear Operator(s): | | Murali Persaud Jr., M.D. Christopher [...] transferred from the intensive careunit [facility] operating room. General | | endotracheal anesthesia [...] receive 24 | | hours ofprophylactic antibiotics.Components Used:[place] [employer] T2 femoral nail, 12 | | mm x 380 mm.Jarrod London M.D.Isra Fowler M.D. / [id number] / [id number] / [id number] /D: | | 01/25/2004T: 01/25/2004 | |canal [...] antibiotics. | | | |Components Used: | |[place] [employer] T2 femoral nail, 12 mm x 380 mm. | | | | | | | | | |Jarrod London M.D. | | | | | | | |Isra Fowler M.D. | | | |CU / HS | |[id number] / [id number] / [id number] / | | | | | + + documented in this encounter Visit Diagnoses Not on filedocumented in this encounter"
--- OUTSIDE RECORDS SUMMARY | ~2019-04-04 | XMS | Encounter Summary ---
Demographics + + + | Address | [address] | | | [place], [place] [address] | + + + | Home Phone | | + + + | Preferred Language | Unknown | + + + | Marital Status | | + + + | Buddhist Affiliation | Unknown | + + + | Race | Unknown | + + + | Ethnic Group | Unknown | + + + Author + + + | Author | [facility] | + + + | Organization | [facility] | + + + | Address | Unknown | + + + | Phone | Unavailable | + + + Support + + +---------+ + | Name | Relationship | Address | Phone | + + +---------+ + | Gerry Medina | ECON | Unknown | | + + +---------+ + Care Team Providers + +------+ + | Care Independent Living Advisor Name | Role | Phone | [...] | | | [address] | [place] [address] | | | | | [place], [place] | [phone] | | | | | [address] | | | | | | [phone] | | | +--------+ + + + [...]
--- OUTSIDE RECORDS SUMMARY | ~2019-04-04 | XMS | Encounter Summary ---
Demographics + + + | Address | [address] | | | [place] [address] | + + + | Home Phone [...] Author + + + | Author | [facility] | + + + | Organization | [facility] | + + + | Address | Unknown | + + + | Phone | Unavailable | + + + Support + + +---------+ + | Name | Relationship | Address | Phone | + + +---------+ + | Cristoefr Medina | ECON | Unknown | | + + +---------+ + Care Team Providers + +------+ + | Care Oil Expert Name | Role | Phone | + [...] [place] | | | | | | [facility] | | | | | | Mailcode: [id number] | | | | | | Physicians [place] | | | | | | [address], | | | | | | [place] [address] | | | | | | [phone] | | | +--------+ + + + [...] | + + + + + | [facility] DEPARTMENT OF | [address] | [place] [address] | | | PATHOLOGY | [address] | | | + + + + + | [facility] DEPARTMENT OF | [address] | [place] [address] | | | PATHOLOGY | [address] [...] | + + + + + | [facility] | [address] [place] [address] | [place] [address] | | | PATHOLOGY | [address] | | | + + + + + | [facility] DEPARTMENT | [address] [place] [address] | [place] [address] | | | PATHOLOGY | [address] [...] DEPARTMENT OF | [address] | [place] [address] | | | PATHOLOGY | [address] | | | + + + + + | [facility] DEPARTMENT OF | [address] | [place] [address] | | | PATHOLOGY | [address] [...] | + + + + + | [facility] DEPARTMENT OF | [facility] | [place] [address] | | | PATHOLOGY | [address] | | | + + + + + | [facility] DEPARTMENT [facility] | [facility] | [place] [address] | | | PATHOLOGY | [address] [...] | + + + + + | [facility] DEPARTMENT [facility] | [address] | [place] [address] | | | PATHOLOGY | [address] | | | + + + + + | [facility] DEPARTMENT OF | [address] | [place] [address] | | | PATHOLOGY | [address] [...] + + + + | PRODUCT | [id number] | | [facility] | | | UNIT [...] | + + + + + | [facility] DEPARTMENT [facility] | [address] [facility] | [place] [address] | | | PATHOLOGY | [address] | | | + + + + + | [facility] DEPARTMENT [facility] | [address] [facility] | [place] [address] | | | PATHOLOGY | [address] [...] + + + + | PRODUCT | [id number] | | [facility] | | | UNIT [...] | + + + + + | [facility] DEPARTMENT [facility] | [address] | [place] [address] | | | PATHOLOGY | [address] | | | + + + + + | [facility] DEPARTMENT [facility] | [address] | [place] [address] | | | PATHOLOGY | [address] [...] DEPARTMENT OF | [address] | [place] [address] | | | PATHOLOGY | [address] | | | + + + + + | [facility] | [address] | [place] [address] | | | PATHOLOGY | [address] | | | + + + + + documented in this encounter Visit Diagnoses Not on filedocumented in this encounter"
--- OUTSIDE RECORDS SUMMARY | ~2019-04-04 | XMS | Encounter Summary ---
Demographics + + + | Address | [address] | | | [place], [place] [address] | + + + | Home Phone [...] + + | Author | [facility] | + + + | Organization | [facility] | + + + | Address | Unknown | + + + | Phone | Unavailable | + + + Support + + +---------+ + | Name | Relationship | Address | Phone | + + +---------+ + | Gerry Medina | ECON | Unknown | | + + +---------+ + Care Team Providers + +------+ + | Care Assistant Administrator Name | Role | Phone | + +------+ + | Manuel Reyes | PCP | | + +------+ + Encounter Details +--------+ + + + + | Date | Type | Department | Care Team | Description | +--------+ + + + + | 03/17/ | Hospital | [facility] | Darrick Potter, | Tear of left | | 2019 | Encounter | [facility] | MD Sofi IBARRA | [facility] labrum, | | | | [address] | [place] [address] | initial encounter | | | | [place] [address] | [phone] | | | | | [phone] | | | | | | | [...] Diagnostic Imaging nurse at , ex t. [phone] For any severe symptoms, please call 911 [...] report symptoms of infection call: , ext. [phone] or come to the ER. in this [...] [facility] | [address] | [place] [address] | | + + + + + [...]
--- OUTSIDE RECORDS SUMMARY | ~2019-04-04 | XMS | Encounter Summary ---
Demographics + + + | Address | [address] | | | [place], [place] [address] | + + + | Home Phone | | + + + | Preferred Language | Unknown | + + + | Marital Status | | + + + | Worship Affiliation | Unknown | + + + | Race | Unknown | + + + | Ethnic Group | Unknown | + + + Author + + + | Author | [facility] | + + + | Organization | [facility] | + + + | Address | Unknown | + + + | Phone | Unavailable | + + + Support + + +---------+ + | Name | Relationship | Address | Phone | + + +---------+ + | Gerry Medina | ECON | Unknown | | + + +---------+ + Care Team Providers + +------+ + | Care Shingle Packer Name | Role | Phone | + [...] | | Surgery | L hip | [place] | [place] | | | | | diagnostic | Primary Care | [address] | | | | | inj results | [address] [place], | | | | | Procedures | [place] | [place] | | | | | ORTHO | [address] | [address] | | | | | FOLLOW UP | [place], | Phone: | | | | | | [place] [address] | [phone] | | | | | | Phone: | Fax: | | | | | | [phone] | [phone] | | | | | | Fax: | | | | | | | [phone] | | +--------+--------+ + + + + Encounter Details +--------+---------+ + + + | Date | Type | Department | Care Team | Description | +--------+---------+ + + + | 03/25/ | Office | [facility] | Darrick Potter, | Tear of left | | 2019 | Visit | [facility] | MD [address] | alfonzo labnallely, | | | | MEDICINE [place] | [place] [address] | subsequent encounter | | | | [address] | [phone] | (Primary Dx) | | | | [place] | | | | | | [address] | | | | | | [phone] | | | +--------+---------+ + + + [...] note may be different from the original. [facility] Service: Orthopedic Surgery Clinic Note History: Nilesh [...] of motion Pain with [place] Pain with Joon's test Pain with logroll Palpable dorsalis pedis [...] were answered and he understood this plan. Darrcik Potter MD has created this entry using [employer] Voice Recognition software a [employer]. The entry has been reviewed and there may still exist sound alike word err ors.in this encounter Plan of Treatment Not on fileas of this encounter Visit Diagnoses + + | Diagnosis | + + | Tear of left acetabular labrum, subsequent encounter - Primary | + +
--- OUTSIDE RECORDS SUMMARY | ~2019-04-04 | XMS | Encounter Summary ---
Demographics + + + | Address | [address] | | | [place] [address] | + + + | Home Phone [...] Team Providers + +------+ + | Care Contact Center Rep Name | Role | Phone | + [...] Rd | | | | | | [place], [place] | | | | | | [address] | | | | | | [phone] | | | | | | | [...] | | + +---------+ + + | [facility] DEPARTMENT OF | | | | | RADIOLOGY | | | | + +---------+ + + IVC FILTER PLACEMENT (01/30/2004 8:29 PM PST) + + + + + + | Component | Value | Ref Range | Performed | Pathologist | | | | | At | Signature | + + + + + + | IVC FILTER | Radiologist 1: ANGEI | | | | | PLACEMENT | Amanda STROUDPROCEDURE: | | | | | | Inferior venacavogram | | | | | | and Bard Recovery IVC | | | | | | filterplacement PRIMARY | | | | | | HEAD WRESTLING COACH: Ishan | | | | | | Zoë Hunter PROCESS SAFETY ENGINEERING TECHNOLOGIST | | | | | | HEAD WRESTLING COACH: Enrrique Dietz | | | | | | Amanda Camacho ATTENDING | | | | | | HEAD WRESTLING COACH: Enrrique Dietz | | | | | [...] | | | | | he 7 Afghan filter | | | | | | [...] | | + +---------+ + + | [facility] DEPARTMENT OF | | | | | RADIOLOGY | | | | + +---------+ + + documented in this encounter Visit Diagnoses Not on filedocumented in this encounter"
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
--- OUTSIDE RECORDS SUMMARY | ~2019-04-04 | XMS | Clinical Summary ---
Demographics + + + | Address | [address] | | | [place] [address] | + + + | Home Phone | | + + + | Preferred Language | Unknown | + + + | Marital Status | | + + + | Bahai Affiliation | Unknown | + + + | Race | Unknown | + + + | Ethnic Group | Unknown | + + + Author + + + | Author | [facility] | + + + | Organization | [facility] | + + + | Address | Unknown | + + + | Phone | Unavailable | + + + Support + + +---------+ + | Name | Relationship | Address | Phone | + + +---------+ + | Gerry Wheat | ECON | Unknown | | + + +---------+ + Care Team Providers + +------+ + | Care Contractor Field Hauling Name | Role | Phone | + [...] Activ | | (INDERAL) 10 MG | daily. | | | | | e | | tabletIndications: | | | | | | | | Situational Anxiety | | | | | | | [...] | | | + + +-------+---------+------+------+-------+ | clonazePAM | take 1/2 tablet by | | 0 | 03/2 | | Activ | | (KLONOPIN) 0.5 MG | mouth once daily if | | | 20 | | e | | tablet | needed for ACUTE | | | 19 | | | | | ANXIETY | | | | | | + + +-------+---------+------+------+-------+ | ibuprofen (MOTRIN) | Take 800 mg by mouth | | 1 | 04/0 | | Activ | | 800 MG tablet | 3 (three) times | | | 20 | | e | | | daily with meals. | | | 19 | | | + + +-------+---------+------+------+-------+ | ondansetron | | | 0 | 04/1 | | Activ | | (ZOFRAN-ODT) 8 MG | | | | 20 | | e | | disintegrating | | | | 19 | | | | tablet | | | | | | | + + +-------+---------+------+------+-------+ | nicotine (NICODERM | Apply 1 patch by | | 0 | 05/0 | | Activ | | CQ) 21 MG/24HR | transdermal route | | | 1/20 | | e | | | EVERY DAY and remove | | | 19 | | | | | at bedtime | | | | | | + + +-------+---------+------+------+-------+ | methocarbamol | Take 750 mg by mouth | | 0 | 05/0 | | Activ | | (ROBAXIN) 750 MG | every 8 (eight) | | | 7/20 | | e | | tablet | hours as needed. FOR | | | 19 | | | | | MUSCLE SPASM | | | | | | + + +-------+---------+------+------+-------+ | terbinafine | Take 250 mg by mouth | | 0 | 05/0 | | Activ | | (LAMISIL) 250 MG | daily. | | | 7/20 | | e | | tablet | | | | 19 | | | + + +-------+---------+------+------+-------+ | propranolol | Take 20 mg by mouth | | 0 | 04/2 | 05/1 | Disco | | (INDERAL) 20 MG | every 12 (twelve) | | | 4/20 | 3/20 | ntinu | | tablet | hours. 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 | 04/01/2019 | + + + | Lumbar radiculopathy | 04/01/2019 | + + + | Nicotine dependence | 04/01/2019 | + + + Encounters +--------+ + + + + | Date | Type | Specialty | Care Team | Description | +--------+ + + + + | 04/01/ | Office | | Jeff Osorio MD | Degeneration of | | 2018 | Visit | | | intervertebral disc | | | | | | of lumbar region | | | | | | (Primary Dx); | | | | | | Bilateral stenosis | | | | | | of lateral recess of | | | | | | lumbar spine; | | | | | | Lumbar | | | | | | radiculopathy; Other | | | | | | tobacco product | | | | | | nicotine dependence, | | | | | | uncomplicated | +--------+ + + + + | 03/25/ | Office | | Darrick Potter, | Tear of left | 2018 | Visit | | | acetabular labrum, | | | | | | subsequent encounter | | | | | | (Primary Dx) | +--------+ + + + + | 03/17/ | Hospital | | Darrick Potter, | Tear of left | 2018 | Encounter | | [facility] | acetabular labrum, | | | | | Procedure | initial encounter | | | | | Radiologist 2, [facility] | | | | | | Di Nurse | | +--------+ + + + + | 03/11/ | Telephone | | Vicky Ferrell, | Referral | | 2019 | | | ORGAN FIXER | | +--------+ + + + + | 03/07/ | Office | | Obie Aceves, | | | 2018 | Visit | | | | +--------+ + + + + | 02/28/ | Office | | Darrick Potter, | Pain of left hip | | 2018 | Visit | | MD | joint (Primary Dx); | | | | | | Tear of left | | | | | | acetabular labrum, | | | | | | initial encounter | +--------+ + + + + | 02/20/ | Documentati | | Jeff Osorio MD | | | 2019 | on Only | | | | +--------+ + + + + | 02/12/ | Telephone | | Sujey White | Other (Needs | | 2018 | | | | Referral) | +--------+ + + + + from [...] + + + | Blood Pressure | 144/80 | 04/01/2019 1:51 PM PDT | + + + + | Pulse | 44 | 04/01/2019 1:51 PM PDT | + + + + [...] + + + + | Weight | 62.1 kg (137 lb) | 04/01/2019 1:51 PM PDT | + + + + | Height | 177.8 cm (5' 10") | 04/01/2019 1:51 PM PDT | + + + + | Body Mass Index | 19.66 | 04/01/2019 1:51 PM PDT | + + + + Plan of [...] + + from Last 3 Months Results XR Steroid Joint Injection Hip Lt [...] |the left hip . | |Signed by: David, D.O., Nathan | |Sign Date/Time: 03/17/2019 2:26 PM | + + + + + + + | Performing | Address | City/State/Zipcode | Phone Number | | Organization | | | | + + + + + | [facility] | [address] | [place] [address] | | + + + + + [...] +------+-------+ + | MEDICAID | MAX | [id number] | | | [address] | | | N | | | | [place] | | | [place] | | | | [phone] | | | CONTRACT COORDINATOR | | | | | + +--------+ [...] | [birth year] | Home: | [address] | | | al/Fam | | 1975 | [phone] [place] [address] | | | donte | | | [phone] | | + +--------+ +--------+ + +
--- OUTSIDE RECORDS SUMMARY | ~2019-04-04 | XMS | Encounter Summary ---
Demographics + + + | Address | [address] | | | [place] [address] | + + + | Home Phone | | + + + | Preferred Language | Unknown | + + + | Marital Status | Single | + + + | Church Affiliation | CHR | + + + [...] Team Providers + +------+ + | Care Audiology Technician Name | Role | Phone | [...] [address] | | | | | | [place] [address] | | | | | | [phone] | | | | | | | [...] | | + +---------+ + + | [facility] DEPARTMENT OF | | | | | RADIOLOGY | | | | + +---------+ + + documented in this encounter Visit Diagnoses Not on filedocumented in this encounter"
--- OUTSIDE RECORDS SUMMARY | ~2019-04-04 | XMS | Encounter Summary ---
Demographics + + + | Address | [address] | | | [place] [address] | + + + | Home Phone [...] + + + | Author | [facility] | + + + | Organization | [facility] | + + + | Address | Unknown | + + + | Phone | Unavailable | + + + Support + + +---------+ + | Name | Relationship | Address | Phone | + + +---------+ + | Cristofer Wheat | ECON | Unknown | | + + +---------+ + Care Team Providers + +------+ + | Care Aerospace Manager Name | Role | Phone | + +------+ + PCP | Unavailable | + +------+ + Encounter Details +--------+ + + + + | Date | Type | Department | Care Team | Description | +--------+ + + + + | 01/24/ | Documentati | Anesthesiology | Unknown . | | | 2003 | on | [address] | | | | | | [facility] | | | | | | [place], [place] | | | | | | [phone] | | | +--------+ + + + [...] | + +--------+ + + + | ANESTHESIA/SEDATION | | 01/25/2004 | | Results for this | | | | 11:04 AM | | procedure are in the | | | | PST | | results section. | + +--------+ + + + documented in this encounter Results ANESTHESIA/SEDATION (01/25/2004 11:04 AM PST) + + + | Narrative | Performed At | + + + | Ordered by an unspecified provider. | | + + + + + | Transcriptions | + + | 01/25/2004 11:04 AM [facility] Anesthesia PostOp Report | | | | Patient: BENJAMIN WHEAT Med Rec: [id number] Sex M Bdate: 1975 | | Date/Time Data | | Entered Into [facility] | | Anesth PostOp | | Surgery Date [id number] 01/25/04 11:04 | | Anesthesiologist ANTONELLA MCDONALD 01/25/04 11:04 | | Resident Anesthesiolog RONNIE AZUL 01/25/04 11:04 | | Complications | | None/None Reported YES 01/25/04 06:26 | | Cause Postop Complication 01/25/04 06:26 | | | | Outcomes Information | | Satisfied with care NOT AVAILABLE 01/25/04 06:26 | | Info obtained from OTHER 01/25/04 06:26 | | Outcome of Anesthesia NO CHANGE IN HOSPITAL COURSE 01/25/04 06:26 | | | + + documented in this encounter Visit Diagnoses Not on filedocumented in this encounter"
--- OUTSIDE RECORDS SUMMARY | ~2019-04-04 | XMS | Encounter Summary ---
Demographics + + + | Address | [address] | | | [place] [address] | + + + | Home Phone | | + + + | Preferred Language | Unknown | + + + | Marital Status | Single | + + + | Pentecostalism Affiliation | CHR | + + + [...] Team Providers + +------+ + | Care Auto Painter Name | Role | Phone | + +------+ + PCP | Unavailable | + +------+ + Encounter Details +--------+ + + + + | Date | Type | Department | Care Team | Description | +--------+ + + + + | 01/23/ | Results | | Suzy Oro | | | 2004 | Only | | | | +--------+ + [...] | BASIC METABOLIC SET | Urgent | 01/25/2004 | | Results for this | | (NA, K, CL, TCO2, | | 4:30 AM | | procedure are in the | | BUN, CR, GLU, CA) | | PST | | results section. | + +--------+ + + + | CBC ONLY | Urgent | 01/25/2004 | | Results for this | | | | 4:30 AM | | procedure are in the | | | | PST | | results section. | + +--------+ + + + | PHOSPHORUS, PLASMA | Urgent | 01/25/2004 | | Results for this | | | | 4:30 AM | | procedure are in the | | | | PST | | results section. | + +--------+ + + + | MAGNESIUM, PLASMA | Urgent | 01/25/2004 | | Results for this | | | | 4:30 AM | | procedure are in the | | | | PST | | results section. | + +--------+ + + + | BASIC METABOLIC SET | Urgent | 01/24/2004 | | Results for this | | (NA, K, CL, TCO2, | | 9:00 PM | | procedure are in the | | BUN, CR, GLU, CA) | | PST | | results section. | + +--------+ + + + | PHOSPHORUS, PLASMA | Urgent | 01/24/2004 | | Results for this | | | | 9:00 PM | | procedure are in the | | | | PST | | results section. | + +--------+ + + + | CALCIUM, IONIZED, | Urgent | 01/24/2004 | | Results for this | | WHOLE BLOOD | | 9:00 PM | | procedure are in the | | | | PST | | results section. | + +--------+ + + + | MAGNESIUM, PLASMA | Urgent | 01/24/2004 | | Results for this | | | | 9:00 PM | | procedure are in the | | | | PST | | results section. | + +--------+ + + + | HEMATOCRIT | Urgent | 01/24/2004 | | Results for this | | | | 12:20 PM | | procedure are in the | | | | PST | | results section. | + +--------+ + + + | X-RAY PELVIS 1 VIEW | Urgent | 01/24/2004 | | Results for this | | | | 9:01 AM | | procedure are in the | | | | PST | | results section. | + +--------+ + + + documented in this encounter Results CBC ONLY WITH PLATELET (01/25/2004 4:30 AM PST) + + + + + + | Component | Value | Ref Range | Performed | Pathologist | | | | | At | Signature | + + + + + + | WHITE CELL | 5.8 | 4.4 - 11.0 K/cu | [facility] | | | COUNT | | mm | DEPARTMENT | | | | | | OF | | | | | | PATHOLOGY | | + + + + + + | RED CELL | 3.18 (L) | 4.20 - 5.90 | [facility] | | | COUNT | | M/cu mm | DEPARTMENT | | | | | | OF | | | | | | PATHOLOGY | | + + + + + + | HEMOGLOBIN | 9.7 (L) | 13.0 - 17.5 | [facility] | | | | | g/dL | DEPARTMENT | | | | | | OF | | | | | | PATHOLOGY | | + + + + + + | HEMATOCRIT | 28.4 (L) | 38.0 - 50.4 % | [facility] | | | | | | DEPARTMENT | | | | | | OF | | | | | | PATHOLOGY | | + + + + + + | MCV | 89.2 | 80.0 - 96.0 fL | [facility] | | | | | | DEPARTMENT | | | | | | OF | | | | | | PATHOLOGY | | + + + + + + | MCH | 30.5 | 28.5 - 32.3 pg | [facility] | | | | | | DEPARTMENT | | | | | | OF | | | | | | PATHOLOGY | | + + + + + + | MCHC | 34.2 | 33.4 - 35.5 | [facility] | | | | | g/dL | DEPARTMENT | | | | | | OF | | | | | | PATHOLOGY | | + + + + + + | RDW | 12.8 | 11.5 - 15.0 % | [facility] | | | | | | DEPARTMENT | | | | | | OF | | | | | | PATHOLOGY | | + + + + + + | PLATELET | 232 | 150 - 400 K/cu | [facility] | | | COUNT | | mm | DEPARTMENT | | | | | | OF | | | | | | PATHOLOGY | | + + + + + + | MPV | 7.6 | 7.4 - 10.4 fL | [facility] [...] + + | [facility] | [address] | [place] [address] | | | PATHOLOGY | [address] | | | + + + + + | [facility] | [address] | [place] [address] | | | PATHOLOGY | [address] | | | + + + + + BASIC METABOLIC SET (01/25/2004 4:30 AM PST) + +---------+ + + + | Component | Value | Ref Range | Performed | Pathologist | | | | | At | Signature | + +---------+ + + + | GLUCOSE, | 132 (H) | 65 - 110 mg/dL | [facility] | | | PLASMA | | | DEPARTMENT | | | (LAB) | | | OF | | | | | | PATHOLOGY | | + +---------+ + + + | BUN, PLASMA | 3 (L) | 6 - 20 mg/dL | [facility] | | | (LAB) | | | DEPARTMENT | | | | | | OF | | | | | | PATHOLOGY | | + +---------+ + + + | CREATININE | 0.7 | 0.7 - 1.3 mg/dL | [facility] | | | PLASMA | | | DEPARTMENT | | | (LAB) | | | OF | | | | | | PATHOLOGY | | + +---------+ + + + | SODIUM, | 135 (L) | 136 - 145 | [facility] | | | PLASMA | | mmol/L | DEPARTMENT | | | (LAB) | | | OF | | | | | | PATHOLOGY | | + +---------+ + + + | POTASSIUM, | 3.8 | 3.5 - 5.1 | [facility] | | | PLASMA | | mmol/L | DEPARTMENT | | | (LAB) | | | OF | | | | | | PATHOLOGY | | + +---------+ + + + | CHLORIDE, | 105 | 98 - 107 mmol/L | [facility] | | | PLASMA | | | DEPARTMENT | | | (LAB) | | | OF | | | | | | PATHOLOGY | | + +---------+ + + + | TOTAL CO2, | 26 | 23 - 29 mmol/L | [facility] | | | PLASMA | | | DEPARTMENT | | | (LAB) | | | OF | | | | | | PATHOLOGY | | + +---------+ + + + | CALCIUM, | 8.1 (L) | 8.5 - 10.5 | [facility] | [...] + + | [facility] | [address] | [place] [address] | | | PATHOLOGY | [address] | | | + + + + + | [facility] | [facility] [address] | [place] [address] | | | PATHOLOGY | [address] | | | + + + + + MAGNESIUM, PLASMA (01/25/2004 4:30 AM PST) + +-------+ + + + | Component | Value | Ref Range | Performed | Pathologist | | | | | At | Signature | + +-------+ + + + | MAGNESIUM,P | 2.1 | 1.8 - 2.5 mg/dL | [facility] [...] + + | [facility] DEPARTMENT OF | [address] | [place] [address] | | | PATHOLOGY | [address] | | | + + + + + | [facility] DEPARTMENT OF | [address] | [place] [address] | | | PATHOLOGY | [address] | | | + + + + + PHOSPHORUS, PLASMA (01/25/2004 4:30 AM PST) + +-------+ + + + | Component | Value | Ref Range | Performed | Pathologist | | | | | At | Signature | + +-------+ + + + | PHOSPHORUS, | 2.6 | 2.4 - 4.7 mg/dL | [facility] | | | PLASMA | | | [...] + + | [facility] | [address] | [place] [address] | | | PATHOLOGY | [address] | | | + + + + + | [facility] | [address] | [place] [address] | | | PATHOLOGY | [address] | | | + + + + + CALCIUM, IONIZED, WHOLE BLOOD (01/24/2004 9:00 PM PST) + + + + + + | Component | Value | Ref Range | Performed | Pathologist | | | | | At | Signature | + + + + + + | MARY ICA, | 1.05 (L) | 1.14 - 1.32 | [facility] | | | WHOLE BLD | | mmol/L | DEPARTMENT | | | | | | OF | | | | | | PATHOLOGY | | + + + + + + | PH, WHOLE | 7.36 | | [facility] | | | BLOOD | | | DEPARTMENT | | | | | | OF | | | | | | PATHOLOGY | | + + + + + + | CALC ICA, | 1.03 (L) | 1.14 - 1.28 | [facility] | | | WHOLE BLD | | mmol/L | DEPARTMENT | | | | | | OF | | | | | | PATHOLOGY | | + + + + + + + + | Specimen | + + | | + + + + + | Narrative | Performed At | + + + | Ionized Calcium, Whole Blood | [facility] | | | DEPARTMENT OF | | | PATHOLOGY | + + + + + + + + | Performing | Address | City/State/Zipcode | Phone Number | | Organization | | | | + + + + + | [facility] DEPARTMENT OF | [address] | [place] [address] | | | PATHOLOGY | [address] | | | + + + + + | [facility] | [address] | [place] [address] | | | PATHOLOGY | [address] | | | + + + + + BASIC METABOLIC SET (01/24/2004 9:00 PM PST) + +---------+ + + + | Component | Value | Ref Range | Performed | Pathologist | | | | | At | Signature | + +---------+ + + + | GLUCOSE, | 108 | 65 - 110 mg/dL | [facility] | | | PLASMA | | | DEPARTMENT | | | (LAB) | | | OF | | | | | | PATHOLOGY | | + +---------+ + + + | BUN, PLASMA | 5 (L) | 6 - 20 mg/dL | [facility] | | | (LAB) | | | DEPARTMENT | | | | | | OF | | | | | | PATHOLOGY | | + +---------+ + + + | CREATININE | 0.7 | 0.7 - 1.3 mg/dL | [facility] | | | PLASMA | | | DEPARTMENT | | | (LAB) | | | OF | | | | | | PATHOLOGY | | + +---------+ + + + | SODIUM, | 136 | 136 - 145 | [facility] | | | PLASMA | | mmol/L | DEPARTMENT | | | (LAB) | | | OF | | | | | | PATHOLOGY | | + +---------+ + + + | POTASSIUM, | 3.9 | 3.5 - 5.1 | [facility] | | | PLASMA | | mmol/L | DEPARTMENT | | | (LAB) | | | OF | | | | | | PATHOLOGY | | + +---------+ + + + | CHLORIDE, | 106 | 98 - 107 mmol/L | [facility] | | | PLASMA | | | DEPARTMENT | | | (LAB) | | | OF | | | | | | PATHOLOGY | | + +---------+ + + + | TOTAL CO2, | 24 | 23 - 29 mmol/L | [facility] | | | PLASMA | | | DEPARTMENT | | | (LAB) | | | OF | | | | | | PATHOLOGY | | + +---------+ + + + | CALCIUM, | 7.7 (L) | 8.5 - 10.5 | [facility] | [...] | [facility] DEPARTMENT OF | [address] | [place] [address] | | | PATHOLOGY | [address] | | | + + + + + | [facility] DEPARTMENT OF | [address] | [place] [address] | | | PATHOLOGY | [address] | | | + + + + + MAGNESIUM, PLASMA (01/24/2004 9:00 PM PST) + +-------+ + + + | Component | Value | Ref Range | Performed | Pathologist | | | | | At | Signature | + +-------+ + + + | MAGNESIUM,P | 2.2 | 1.8 - 2.5 mg/dL | [facility] | | | LASMA | | | [...] + + | [facility] | [address] | [place] [address] | | | PATHOLOGY | [address] | | | + + + + + | [facility] | [address] | [place] [address] | | | PATHOLOGY | [address] | | | + + + + + PHOSPHORUS, PLASMA (01/24/2004 9:00 PM PST) + +---------+ + + + | Component | Value | Ref Range | Performed | Pathologist | | | | | At | Signature | + +---------+ + + + | PHOSPHORUS, | 2.3 (L) | 2.4 - 4.7 mg/dL | [...] | [facility] DEPARTMENT OF | [address] | [place] [address] | | | PATHOLOGY | [address] | | | + + + + + | [facility] DEPARTMENT | [address] | [place] [address] | | | PATHOLOGY | [address] | | | + + + + + HEMATOCRIT (01/24/2004 12:20 PM PST) + + + + + + | Component | Value | Ref Range | Performed | Pathologist | | | | | At | Signature | + + + + + + | HEMATOCRIT | 32.9 (L) | 38.0 - 50.4 % | [facility] | | | | | | DEPARTMENT [...] + + | [facility] | [address] | [place] [address] | | | PATHOLOGY | [address] | | | + + + + + | [facility] | [address] | [place] [address] | | | PATHOLOGY | [address] | | | + + + + + PELVIS 1 VIEW (01/24/2004 9:01 AM PST) + + + + + + | Component | Value | Ref Range | Performed | Pathologist | | | | | At | Signature | + + + + + + | PELVIS 1 | Radiologist 1: KATERINE, | | | | | VIEW | FARIBA Sandhu | | | | | | AmandaEXAM: Pelvis AP | | | | | | view COMPARISON: none | | | | | | FINDINGS: There is | | | | | | no acute fracture or | | | | | | focal bony | | | | | | destruction.The hips and | | | | | | symphysis pubis are | | | | | | maintained. The | | | | | | articularsurfaces of the | | | | | | femoral heads are | | | | | | smooth. IMPRESSION: | | | | | | 1. No acute fracture | | | | | | in the pelvis. | | | | + + + + + + + + | Specimen | + + | | + + + +---------+ + + | Performing | Address | City/State/Zipcode | Phone Number | | Organization | | | | + +---------+ + + | [facility] DEPARTMENT OF | | | | | RADIOLOGY | | | | + +---------+ + + documented in this encounter Visit Diagnoses Not on filedocumented in this encounter"
--- OUTSIDE RECORDS SUMMARY | ~2019-04-04 | XMS | Encounter Summary ---
Demographics + + + | Address | [address] | | | [place] [address] | + + + | Home Phone | | + + + | Preferred Language | Unknown | + + + | Marital Status | Single | + + + | Tenriism Affiliation | CHR | + + + | Race | White | + + + | Ethnic Group | Not or | + + + Author + + + | Author | [facility] | + + + | Organization | [facility] | + + + | Address | Unknown | + + + | Phone | Unavailable | + + + Support + + +---------+ + | Name | Relationship | Address | Phone | + + +---------+ + | Cristofer Medina | ECON | Unknown | | + + +---------+ + Care Team Providers + +------+ + | Care Insurance Verification Rep Name | Role | Phone | [...] as of this encounter Progress Notes Interface, Planimeter Operator In - 06/04/2005 8:26 AM PDT [id number] 08/01/2004 08/01/2004 [id number] MARY ALICE ALEXANDER Clinic Date: 08/01/2004 Orthopedics [...] of pain. Isra Fowler M.D. [id number] P [id number] cc: documented i n this encounter Plan of Treatment Not on filedocumented as of this encounter Visit Diagnoses Not on filedocumented in this encounter"
--- OUTSIDE RECORDS SUMMARY | ~2019-04-04 | XMS | Encounter Summary ---
Demographics + + + | Address | [address] | | | [place] [address] | + + + | Home Phone [...] Team Providers + +------+ + | Care Telephone Interceptor Operator Name | Role | Phone | [...] + + + + + | [facility] | [address] | [place] [address] | | | PATHOLOGY | [address] | | | + + + + + | [facility] | [address] | [place] [address] | | | PATHOLOGY | [address] [...] + + + + + | [facility] | [address] | [place] [address] | | | PATHOLOGY | [address] | | | + + + + + | [facility] | [facility] [address] | [place] [address] | | | PATHOLOGY | [address] [...] + + | [facility] DEPARTMENT OF | [address] | [place] [address] | | | PATHOLOGY | [address] | | | + + + + + | [facility] DEPARTMENT OF | [address] | [place] [address] | | | PATHOLOGY | [address] | | | + + + + + PHOSPHORUS, PLASMA (01/25/2004 4:30 AM PST) + +-------+ + + + | Component | Value | Ref Range | Performed | Pathologist | | | | | At | Signature | + +-------+ + + + | PHOSPHORUS, | 2.6 | 2.4 - 4.7 mg/dL | [facility] | | | PLASMA | | | [...] + + + + + | [facility] | [address] | [place] [address] | | | PATHOLOGY | [address] | | | + + + + + | [facility] | [address] | [place] [address] | | | PATHOLOGY | [address] [...] | + + + + + | [facility] DEPARTMENT OF | [address] | [place] [address] | | | PATHOLOGY | [address] | | | + + + + + | [facility] DEPARTMENT OF | [address] | [place] [address] | | | PATHOLOGY | [address] [...] DEPARTMENT OF | [address] | [place] [address] | | | PATHOLOGY | [address] | | | + + + + + | [facility] DEPARTMENT OF | [address] | [place] [address] | | | PATHOLOGY | [address] | | | + + + + + MAGNESIUM, PLASMA (01/24/2004 9:00 PM PST) + +-------+ + + + | Component | Value | Ref Range | Performed | Pathologist | | | | | At | Signature | + +-------+ + + + | MAGNESIUM,P | 2.2 | 1.8 - 2.5 mg/dL | [facility] | | | LASMA | | | [...] + + + + + | [facility] | [address] | [place] [address] | | | PATHOLOGY | [address] | | | + + + + + | [facility] | [address] [facility] [address] | [place] [address] | | | PATHOLOGY | [address] [...] DEPARTMENT OF | [address] | [place] [address] | | | PATHOLOGY | [address] | | | + + + + + | [facility] DEPARTMENT | [address] | [place] [address] | | | PATHOLOGY | [address] | | | + + + + + HEMATOCRIT (01/24/2004 12:20 PM PST) + + + + + + | Component | Value | Ref Range | Performed | Pathologist | | | | | At | Signature | + + + + + + | HEMATOCRIT | 32.9 (L) | 38.0 - 50.4 % | [facility] | | | | | | DEPARTMENT [...] + + + + + | [facility] | [address] | [place] [address] | | | PATHOLOGY | [address] | | | + + + + + | [facility] | [address] | [place] [address] | | | PATHOLOGY | [address] [...] | | + +---------+ + + | [facility] DEPARTMENT OF | | | | | RADIOLOGY | | | | + +---------+ + + documented in this encounter Visit Diagnoses Not on filedocumented in this encounter"
--- OUTSIDE RECORDS SUMMARY | ~2019-04-04 | XMS | Encounter Summary ---
Demographics + + + | Address | [address] | | | [place] [address] | + + + | Home Phone | | + + + | Preferred Language | Unknown | + + + | Marital Status | Single | + + + | Jew Affiliation | CHR | + + + [...] Team Providers + +------+ + | Care Career Development Coordinator/Teacher Name | Role | Phone | + +------+ + PCP | Unavailable | + +------+ + Encounter Details +--------+ + + + + | Date | Type | Department | Care Team | Description | +--------+ + + + + | 01/23/ | Procedure - | | Documentation, | OP REPORT-TEACHING | | 2004 | | | Teaching Physician | | | | Transcribed | | | | +--------+ + + [...] | + +--------+ + + + | TEACHING PHYSICIAN | | 01/24/2004 | | | + +--------+ + + + documented in this encounter Visit Diagnoses Not on filedocumented in this encounter"
--- OUTSIDE RECORDS SUMMARY | ~2019-04-04 | XMS | Encounter Summary ---
Demographics + + + | Address | [address] | | | [place], [place] [address] | + + + | Home Phone [...] + + | Author | [facility] | + + + | Organization | [facility] | + + + | Address | Unknown | + + + | Phone | Unavailable | + + + Support + + +---------+ + | Name | Relationship | Address | Phone | + + +---------+ + | Gerry Medina | ECON | Unknown | | + + +---------+ + Care Team Providers + +------+ + | Care Scrap Metal Burner Name | Role | Phone | + +------+ + | Manuel Reyes | PCP | | + +------+ + Reason for Visit +--------+ + | Reason | Comments | +--------+ + | Other | Needs Referral | +--------+ + Encounter Details +--------+ + + + + | Date | Type | Department | Care Team | Description | +--------+ + + + + | 02/12/ | Telephone | [facility] | Sujey White | Other (Needs | | 2019 | | [facility] | | Referral) | | | | [facility] | | | | | | [address] | | | | | | [place] | | | | | | [address] | | | | | | [phone] | | | +--------+ + + + [...]
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
--- OUTSIDE RECORDS SUMMARY | ~2019-04-04 | XMS | Encounter Summary ---
Demographics + + + | Address | [address] | | | [place] [address] | + + + | Home Phone [...] Team Providers + +------+ + | Care Switch Operator Name | Role | Phone | [...]
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
--- OUTSIDE RECORDS SUMMARY | ~2019-04-04 | XMS | Encounter Summary ---
Demographics + + + | Address | [address] | | | [place], [place] [address] | + + + | Home Phone | | + + + | Preferred Language | Unknown | + + + | Marital Status | | + + + | Jehovah'S Witness Affiliation | Unknown | + + + | Race | Unknown | + + + | Ethnic Group | Unknown | + + + Author + + + | Author | [facility] | + + + | Organization | [facility] | + + + | Address | Unknown | + + + | Phone | Unavailable | + + + Support + + +---------+ + | Name | Relationship | Address | Phone | + + +---------+ + | Gerry Medina | ECON | Unknown | | + + +---------+ + Care Team Providers + +------+ + | Care Process Development Technician Name | Role | Phone | + +------+ + | Manuel Reyes | PCP | | + +------+ + Reason for Referral Consultation (Routine) + + + + + + + | Status | Reason | Specialty | Diagnoses / | Referred By | Referred To | | | | | Procedures | Contact | Contact | + + + + + + + | New Request | Specialty | Dolorology | Diagnoses | Maximo, | Amos, | | | Services | | | VIOLET Chapa | Lars Harrison, | | | Required | | Degeneration | [address] | MD [address] | | | | | of | [address] | [place] | | | | | intervertebr | [facility] [address] | | | | | al disc [place] | [place] [address] | [place], [place] | | | | | lumbar | Phone: | [phone] Phone: | | | | | region | [phone] | [phone] | | | | | Bilateral | Fax: | Fax: | | | | | stenosis of | [phone] | [phone] | | | | | lateral | | | | | | | recess of | | | | | | | lumbar spine | | | + + + + + + + MRI/CAT Scan (Routine) + +--------+ + + + + | Status | Reason | Specialty | Diagnoses / | Referred By | Referred To | | | | | Procedures | Contact | Contact | + +--------+ + + + + | Pending | | | Diagnoses | Jo, | | | Review | | | | MD Jeff | | | | | | Degeneration | [address] | | | | | | of | [address] | | | | | | intervertebr | [address] [place] | | | | | al disc of | [place] [address] | | | | | | lumbar | Phone: | | | | | | region | [phone] | | | | | | Bilateral | Fax: | | | | | | stenosis of | [phone] | | | | | | lateral | | | | | | | recess of | | | | | | | lumbar spine | | | | | | | Procedures | | | | | | | CT lumbar | | | | | | | spine wo | | | | | | | contrast | | | + +--------+ + + + + Physical Medicine (Routine) + + + + + + + | Status | Reason | Specialty | Diagnoses / | Referred By | Referred To | | | | | Procedures | Contact | Contact | + + + + + + + | New Request | Specialty | Physical | Diagnoses | Maximo, | Babatunde | | | Services | Therapy | | VIOLET Chapa | Physical | | | Required | | Degeneration | [address] | Therapy [address] | | | | | of | [address] | [address] | | | | | intervertebr | [facility], | [place], [place] | | | | | al disc of | [place] [address] | [address] Phone: | | | | | lumbar | Phone: | [phone] | | | | | region | [phone] | Fax: | | | | | Bilateral | Fax: | [phone] | | | | | stenosis of | [phone] | | | | | | lateral | | | | | | | recess of | | | | | | | lumbar spine | | | + + + + + + + Reason for Visit Consult and Treat (Routine) + +--------+ + + + + | Status | Reason | Specialty | Diagnoses / | Referred By | Referred To | | | | | Procedures | Contact | Contact | + +--------+ + + + + | Authorized | | Orthopedic | Diagnoses | Eric, | Gretchen Pozo | | | | Surgery | Lumbago | MAX Jackson | Orthopedic | | | | | with | [address] | Spine [address] | | | | | sciatica, | [address] | [address] | | | | | unspecified | [address] [place] | | | | | side Other | [place] [address] | [place], [place] | | | | | intervertebr | Phone: | [phone] | | | | | al disc | [phone] | Phone: | | | | | degeneration | Fax: | [phone] | | | | | , lumbar | [phone] | Fax: | | | | | region | | [phone] | | | | | Spondylosis, | | | | | | | unspecified | | | + +--------+ + + + + Encounter Details +--------+---------+ + + + | Date | Type | Department | Care Team | Description | +--------+---------+ + + + | 04/01/ | Office | [facility] | Jeff Osorio MD | Degeneration of | | 2019 | Visit | [facility] | [address] | intervertebral disc | | | | [address] | [place] [address] | of lumbar region | | | | [address] [address] [place], [place] | [phone] | (Primary Dx); | | | | [address] | | Bilateral stenosis | | | | [phone] | | of lateral recess of | | | | | | lumbar spine; | | | | | | Lumbar | | | | | | radiculopathy; Other | | | | | | tobacco product | | | | | | nicotine dependence, | | | | | | uncomplicated | +--------+---------+ + + + Social History [...] + + in this encounter Progress Notes Eduard Marsh ARNP - 04/01/2019 1:50 PM PDTFormatting of this note may be different from daniella morrow original. Subjective: Chief Complaint: Bilateral lower extremity radiculopathy and weakness. INitial Exam. Lumbar pain. Hip surgery or Back surgery first? HPI: Location: Lumbar pain with lower extremity weakness. Mr. Medina is seen at the request fr bertha Reyes PA-C. His symptoms of lower back and leg pain has been ongoing over the past 2 years. Last physical therapy visit was within 2 years. No resolution to his leg pa in. Currently pain is more prominent when he is standing or walking upright. Pain is towar ds L5 and S1 distribution. It is important to note he currently Uses nicotine patches Approximate time symptoms began: 2 years ago Illness / work injury / accident: Unknown illness Pain description: Bilateral L4/5 and L5/S1 pain, burning, aching, throbbing, stabbing tasia g with numbness and tingling. Pain scale: 7-8/10 Precipitating Factors: Walking, physical activity, standing, sexual activity Alleviating Factors: Relaxation, ice/heat, medications. Conservative Treatments to date: Completed physical therapy a year ago with improvement Interventional Pain Management: methocarbamol Social History Occupational History Not on file. Social History Main Topics Smoking status: Former Smoker Quit date: 11/05/2017 Smokeless tobacco: Never Used Alcohol use No Drug use: Yes Types: Marijuana Sexual activity: Not on file Past Medical History Diagnosis Date Anxiety Hypertension Other chronic pain PTSD (post-traumatic stress disorder) PTSD (post-traumatic stress disorder) Past Surgical History Procedure Laterality Date ADENOIDECTOMY adnoidectomy N/A FEMUR FRACTURE SURGERY Left 11/05/2003 femural surgery Left head injury TONSILLECTOMY Current Outpatient Prescriptions: baclofen (LIORESAL) 10 mg [...] with meal s., Disp: , Rfl: 1 methocarbamol (ROBAXIN) 750 MG tablet, Take 750 mg by mouth every 8 (eight) hours as n eeded. FOR MUSCLE SPASM, Disp: , Rfl: 0 nicotine (NICODERM CQ) 21 MG/24HR, Apply 1 patch by transdermal route EVERY DAY and re move at bedtime, Disp: , Rfl: 0 ondansetron (ZOFRAN-ODT) 8 MG disintegrating tablet, , Disp: , Rfl: 0 oxyCODONE-acetaminophen (PERCOCET) 10-325 MG per tablet, Take 1 tablet by mouth every 4 (four) hours as needed for Pain., Disp: , Rfl: propranolol (INDERAL) 10 MG tablet, Take 10 mg by mouth daily., Disp: , Rfl: terbinafine (LAMISIL) 250 MG tablet, Take 250 mg by mouth daily., Disp: , Rfl: 0 @ALLAPPTS@ Family History Problem Relation Age of Onset Asthma Mother Heart defect Mother Heart disease Mother Hypertension Mother COPD Mother Review of Systems Constitutional: Positive for activity change. Negative for appetite change, chills, fatigue , fever and unexpected weight change. HENT: Negative for congestion, ear pain, sinus pain, sinus pressure and sore throat. Eyes: Negative for pain, redness and visual disturbance. Respiratory: Negative for cough, chest tightness and shortness of breath. Cardiovascular: Negative for chest pain, palpitations and leg swelling. Gastrointestinal: Negative for abdominal pain, constipation, diarrhea, nausea and vomiting. Endocrine: Negative for cold intolerance and heat intolerance. Genitourinary: Negative for decreased urine volume, difficulty urinating, frequency, penile pain and urgency. Musculoskeletal: Positive for back pain, myalgias, neck pain and neck stiffness. Negative f or arthralgias, gait problem and joint swelling. Skin: Negative for rash. Allergic/Immunologic: Negative for food allergies. Neurological: Positive for weakness and numbness. Negative for dizziness, tremors, speech d ifficulty, light-headedness and headaches. Hematological: Does not bruise/bleed easily. Psychiatric/Behavioral: Positive for sleep disturbance. Negative for agitation, confusion, decreased concentration and dysphoric mood. The patient is not nervous/anxious. Objective: BP 144/80 | Pulse (!) 44 | Ht 1.778 m (5' 10") | Wt 62.1 kg (137 lb) | BMI 19.66 kg/m PE: PHYSICAL EXAM GENERAL: -Pleasant, no acute distress SKIN: -Normal HEENT: -Normocephalic and atraumatic NECK: -ROM normal, no visible lymph nodes. -Negative Spurling sign -Negative Lhermitte's CHEST: -Symmetric expansion. -Lung normal excursion HEART: -Regular pulse ABDOMEN: -no obvious distension EXTREMITIES: -No edema -2+ pulses -KOJO negative -Phalen's test: -Tinel's sign: -Shoulder ROM: NEUROLOGICAL EXAM: MENTAL STATUS: -Alert and oriented x 3 -Normal mood, affect -Speech is fluent CRANIAL NERVES: II: -Pupils are equal, reactive to light III, IV, : -Extraocular movements intact V: -Facial sensation intact VII: -Face symmetrical VIII: -Hearing intact IX, X: -Palate elevates symmetrically, voice nml XI: -SCM normal XII: -Tongue is midline, no fasciculations CEREBELLAR: -Finger to nose NL, normal coordination. STATION/GAIT: -Normal upright posture -Heel and toe walking difficulty performing bilaterally with diminished rapid toe gonzalez ses bilaterally -Normal tandem gait REFLEXES: 2+ symmetric bicep/tricep/brachioradialis., Patellar/achilles. MOTOR EXAM: -No atrophy, fasciculations noted Right Left Hip flexors 5 5 Quadriceps 5 5 Hamstrings 5 5 Dorsiflexion 5- 5- Extensor hallicus 5- 5- Plantarflexion 5- 5- SENSORY: -Light touch normal -Pinprick normal SPINE EXAM: -No deformity -Tenderness present L4-5 and L5-S1 -Straight leg raise positive bilaterally at 45 degrees -Rain's signs absent IMAGING: Lumbar MRI December 26, 2018 revealed severe foraminal stenosis L5-S1 with severe disc jie ccation L5-S1. Facet arthrosis with slight amount of gapping at L4-5. Assessment: 1. Degeneration of intervertebral disc of lumbar region 2. Bilateral stenosis of lateral recess of lumbar spine 3. Lumbar radiculopathy 4. Other tobacco product nicotine dependence, uncomplicated Mr. Medina is a 43-year-old who has severe foraminal stenosis at the L5-S1 region along wit h slight amount of facet gapping at L4-5. Recommendation at this point is the following: #1 we will initiate referral to physical therapy given his last physical therapy was almost 2 years ago. #[address] Trinidad for consideration for lumbar epidural injection versus peter albright for caudal epidural injection. #3 obtain imaging studies to include x-rays at [facility] to include flexion and extensi on views along with CT scan. #4 nicotine cessation prior to consideration of surgery #5 follow-up after all the above have been met in the next 8 weeks and potentially consider surgery at L5-S1 and potential inclusion at L4-5 depending on updating studies. Orders Placed This Encounter Procedures X-ray lumbar spine limited 2-3 views STANDING XR Flex, Ext [facility] Please fax report to [phone] and upload images to [employer] PAC's. Standing Status: Future Standing Expiration Date: 10/02/2020 CT lumbar spine wo contrast [facility] Please fax report to [phone] and upload images to [employer] PAC's. Standing Status: Future Standing Expiration Date: 10/02/2020 Ambulatory referral to Physical Therapy, Eval and Treat Referral Priority: Routine Referral Type: Physical Medicine Referral Reason: Specialty Services Required Requested Specialty: Physical Therapy Number of Visits Requested: 24 Ambulatory referral to Pain Clinic Referral Priority: Routine Referral Type: Consultation Referral Reason: Specialty Services Required Referred to Provider: Lars Trinidad MD Number of Visits Requested: 12 Note: We spent approximately 35 minutes in hayy-bh-izry time of which greater than 50% was involved in counseling/coordination of care discussing perioperative expectations and yahir ring/contrasting previous and past imaging studies. in this encounter Plan of Treatment + +--------+ + + | Name | Priori | Associated Diagnoses | Order Schedule | | | ty | | | + +--------+ + + | X-ray lumbar spine limited 2-3 | Routin | Degeneration of | Expected: | | views | e | intervertebral disc | 04/01/2019, Expires: | | | | of lumbar region | 10/02/2020 | | | | Bilateral stenosis | | | | | of lateral recess of | | | | | lumbar spine | | + +--------+ + + | CT lumbar spine wo contrast | Routin | Degeneration of | Expected: | | | e | intervertebral disc | 04/01/2019, Expires: | | | | of lumbar region | 10/02/2020 | | | | Bilateral stenosis | | | | | of lateral recess of | | | | | lumbar spine | | + +--------+ + + + +--------+ + + | Name | Priori | Associated Diagnoses | Order Schedule | | | ty | | | + +--------+ + + | Ambulatory referral to Physical | Routin | Degeneration of | Ordered: 04/01/2019 | | Therapy, Eval and Treat | e | intervertebral disc | | | | | of lumbar region | | | | | Bilateral stenosis | | | | | of lateral recess of | | | | | lumbar spine | | + +--------+ + + | Ambulatory referral to Pain | Routin | Degeneration of | Ordered: 04/01/2019 | | Clinic | e | intervertebral disc | | | | | of lumbar region | | | | | Bilateral stenosis | | | | | of lateral recess of | | | | | lumbar spine | | + +--------+ + + as of this encounter Visit Diagnoses + + | Diagnosis | + + | Degeneration of intervertebral disc of lumbar region - Primary | + + | Bilateral stenosis of lateral recess of lumbar spine | + + | Lumbar radiculopathy | + + | Thoracic or lumbosacral neuritis or radiculitis, unspecified | + + | Other tobacco product nicotine dependence, uncomplicated | + +
--- OUTSIDE RECORDS SUMMARY | ~2019-04-04 | XMS | Encounter Summary ---
Demographics + + + | Address | [address] | | | [place] [address] | + + + | Home Phone | | + + + | Preferred Language | Unknown | + + + | Marital Status | Single | + + + | Latter Day Affiliation | CHR | + + + | Race | White | + + + | Ethnic Group | Not or | + + + Author + + + | Author | [facility] | + + + | Organization | [facility] | + + + | Address | Unknown | + + + | Phone | Unavailable | + + + Support + + +---------+ + | Name | Relationship | Address | Phone | + + +---------+ + | Cristofer Medina | ECON | Unknown | | + + +---------+ + Care Team Providers + +------+ + | Care Courier Driver Name | Role | Phone | + +------+ + PCP | Unavailable | + +------+ + Encounter Details +--------+ + + + + | Date | Type | Department | Care Team | Description | +--------+ + + + + | 07/13/ | Results | Orthopaedics at | [place], | | | 2003 | Only | [facility] [address] | MD Wesley | | | | | [facility] | | | | | | Mailcode: [id number] | | | | | | [place]lin [place] | | | | | | [place], [place] | | | | | | [address] | | | | | | [phone] | | | +--------+ + + + [...] + +--------+ + + + | X-RAY HIP 2 VIEWS | Routin | 08/01/2004 | | Results for this | | LEFT | e | 12:29 PM | | procedure are in the | | | | PDT | | results section. | + +--------+ + + + | X-RAY FEMUR 2 VIEWS | Routin | 07/13/2004 | | Results for this | | LEFT | e | 1:18 PM | | procedure are in the | | | | PDT | | results section. | + +--------+ + + + documented in this encounter Results HIP 2 VIEWS LEFT (08/01/2004 12:29 PM PDT) + + + + + + | Component | Value | Ref Range | Performed | Pathologist | | | | | At | Signature | + + + + + + | HIP 2 VIEWS | Radiologist 1: | | | | | LEFT | GAVIN LEA, | | | | | | M.D.-Radiologist 2: | | | | | | GAVIN LEA, | | | | | | M.D.EXAM: Two view | | | | | | left hip. | | | | | | COMPARISON: 07/13/04 | | | | | | FINDINGS: Continued | | | | | | healing of the left mid | | | | | | diaphyseal | | | | | | femoralfracture is seen | | | | | | with increased callus | | | | | | formation and sclerosis. | | | | | | Theproximal transfixing | | | | | | screw has been removed | | | | | | from the | | | | | | intramedullaryrod. Th | | | | | | ere is no evidence of | | | | | | loosening or hardware | | | | | | failure. The lefthip | | | | | | joint space is | | | | | | maintained and the | | | | | | femoral head is smooth. | | | | | | IMPRESSION: Further | | | | | | healing of the left mid | | | | | | diaphyseal femur | | | | | | fracture in nearanatomic | | | | | | alignment. No | | | | | | hardware complications. | | | | + + + + + + + + | Specimen | + + | | + + + +---------+ + + | Performing | Address | City/State/Zipcode | Phone Number | | Organization | | | | + +---------+ + + | [facility] DEPARTMENT OF | | | | | RADIOLOGY | | | | + +---------+ + + FEMUR 2 VIEWS LEFT (07/13/2004 1:18 PM PDT) + + + + + + | Component | Value | Ref Range | Performed | Pathologist | | | | | At | Signature | + + + + + + | FEMUR 2 | Radiologist 1: | | | | | VIEWS LEFT | GAVIN LEA, | | | | | | M.D.-Radiologist 2: | | | | | | GAVIN LEA, | | | | | | M.D.STUDY:LEFT FEMUR | | | | | | 07/13/04 CLINICAL: History | | | | | | of left femur fracture, | | | | | | status post | | | | | | intramedullarynail | | | | | | placement. | | | | | | COMPARISON:01/24/04. | | | | | | TECHNIQUE:AP and lateral | | | | | | views of the left | | | | | | femur. FINDINGS:The | | | | | | distal left femur | | | | | | diaphyseal fracture | | | | | | demonstratesprogressive | | | | | | radiographic healing | | | | | | with callus | | | | | | formation. Near | | | | | | normalanatomic alignment | | | | | | is identified. The | | | | | | intramedullary nail | | | | | | andinterlocking screws | | | | | | are intact, and there is | | | | | | no evidence of | | | | | | hardwarefailure or | | | | | | loosening. IMPRESSION: | | | | | | 1. Healing distal | | | | | | left femur | | | | | | fracture. No evidence | | | | | | of | | | | | | hardwarecomplications. | | | | | | Near anatomic | | | | | | alignment. | | | | + + + + + + + + | Specimen | + + | | + + + +---------+ + + | Performing | Address | City/State/Zipcode | Phone Number | | Organization | | | | + +---------+ + + | [facility] DEPARTMENT OF | | | | | RADIOLOGY | | | | + +---------+ + + documented in this encounter Visit Diagnoses Not on filedocumented in this encounter"
--- OUTSIDE RECORDS SUMMARY | ~2019-04-04 | XMS | Encounter Summary ---
Demographics + + + | Address | [address] | | | [place] [address] | + + + | Home Phone [...] Team Providers + +------+ + | Care Combined Rail Operator Name | Role | Phone | [...] as of this encounter Discharge Summaries Interface, Voip Technician In - 06/03/2005 11:38 PM PDTAdmission Date: [...] a subarachnoid hemorrhage. He was transported from [place], [place] to [facility] where he had an IM nail placed [...] He presented to the emergency room in [place] where a CT scan was obtained revealing a pulmonary embolus. He was transported to [facility] for placement of an IVC filter. HOSPITAL [...] follow-up by a primary care physician in [place], who will manage him with aspirin therapy [...] Dr. Gupta, a family practice physician in [place], [place] on February 15, [address] 1:[address] Gupta will manage his aspirin therapy and follow-up duplex scans. Raphael Medina M.D. Jarrell Bauer M.D. Attending Physician RC:[phone] cc: FAX STAT TO: DR GUPTA [address] [address] TEL: [phone] FAX: [phone] signed by Interface, Voip Technician In at 06/03/2005 11:38 PM PDTdocumented in this encounter Plan of Treatment Not on filedocumented as of this encounter Visit Diagnoses Not on filedocumented in this encounter"
--- OUTSIDE RECORDS SUMMARY | ~2019-04-04 | XMS | Encounter Summary ---
Demographics + + + | Address | [address] | | | [place] [address] | + + + | Home Phone | | + + + | Preferred Language | Unknown | + + + | Marital Status | Single | + + + | Holiness Affiliation | CHR | + + + [...] Team Providers + +------+ + | Care Upholstery Cutter Name | Role | Phone | + [...] as of this encounter Progress Notes Interface, Client Development Consultant In - 06/04/2005 8:26 AM PDTClinic Date: [...] his symptomatology. Isra Fowler M.D. TV/x45 [id number] cc: documente d in this encounter Plan of Treatment Not on filedocumented as of this encounter Visit Diagnoses Not on filedocumented in this encounter"
--- OUTSIDE RECORDS SUMMARY | ~2019-04-04 | XMS | Encounter Summary ---
Demographics + + + | Address | [address] | | | [place], [place] [address] | + + + | Home Phone | | + + + | Preferred Language | Unknown | + + + | Marital Status | | + + + | Uatsdin Affiliation | Unknown | + + + | Race | Unknown | + + + | Ethnic Group | Unknown | + + + Author + + + | Author | [facility] | + + + | Organization | [facility] | + + + | Address | Unknown | + + + | Phone | Unavailable | + + + Support + + +---------+ + | Name | Relationship | Address | Phone | + + +---------+ + | Gerry Medina | ECON | Unknown | | + + +---------+ + Care Team Providers + +------+ + | Care Vault Keeper Name | Role | Phone | + [...] | | | | | intervertebr | [facility] [place] | | | | | [place] disc [place] | [place] [address] | [place], [place] | | | | | lumbar | Phone: | [phone] Phone: | | | | | region | [phone] | [phone] | | | | | Bilateral | Fax: | Fax: | | | | | stenosis of | [phone] | [phone] | | | | | lateral | [...] | | | al disc of | [place] [address] | | | | | | lumbar | Phone: | | | | | | region | [phone] | | | | | | Bilateral | Fax: | | | | | | stenosis of | [phone] | | | | | | lateral [...] | | | | | intervertebr | [facility], | [place], [place] | | | | | al disc [place] | [place] [address] | [address] Phone: | | | | | lumbar | Phone: | [phone] | | | | | region | [phone] | Fax: | | | | | Bilateral | Fax: | [phone] | | | | | stenosis of | [phone] | | | | | | lateral [...] | | | side Other | [place] [address] | [place], [place] | | | | | intervertebr | Phone: | [address] | | | | | al disc | [phone] | Phone: | | | | | degeneration | Fax: | [phone] | | | | | , lumbar | [phone] | Fax: | | | | | region | | [phone] | | | | | Spondylosis, | | | | | | | unspecified | | | + +--------+ + + + + Encounter Details +--------+---------+ + + + | Date | Type | Department | Care Team | Description | +--------+---------+ + + + | 04/01/ | Office | [facility] | Jeff Osorio MD | 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 Please fax report to [phone] and upload images to [employer] [facility]. Standing Status: Future Standing Expiration Date: 10/02/2020 CT lumbar spine wo contrast [facility] Please fax report to [phone] and upload images to [employer] [facility]. Standing Status: Future Standing Expiration Date: [...] Note: We spent approximately 35 minutes in [id number]-[id number] time of which greater than 50% was [...]
--- OUTSIDE RECORDS SUMMARY | ~2019-04-04 | XMS | Clinical Summary ---
Demographics + + + | Address | [address] | | | [place] [address] | + + + | Home Phone [...] Team Providers + +------+ + | Care Director Cardiac Name | Role | Phone | + +------+ + PP | Unavailable | + +------+ + Source Comments DENISJOSEFINA is fully live on both EpicCare Ambulatory and EpicCare InPatient.[facility] Allergies Not on File Medications Not on [...] | [birth year] | GLORIA GALDAMEZ [address] | | | al/Fam | | 1975 | [phone] | [place] [address] | | | donte | | | 4 (Home) | | + +--------+ +--------+ + +"
--- OUTSIDE RECORDS SUMMARY | ~2019-04-04 | XMS | Encounter Summary ---
Demographics + + + | Address | [address] | | | [place] [address] | + + + | Home Phone [...] + + + | Author | [facility] | + + + | Organization | [facility] | + + + | Address | Unknown | + + + | Phone | Unavailable | + + + Support + + +---------+ + | Name | Relationship | Address | Phone | + + +---------+ + | Cristofer Medina | ECON | Unknown | | + + +---------+ + Care Team Providers + +------+ + | Care Campaign Worker Name | Role | Phone | [...] MD Wesley | | | | | [facility] | | | | | | Mailcode: [id number] | | | | | | [place] | | | | | | [place], [place] | | | | | | [address] | | | | | | [phone] | | | +--------+ + + + [...] | | + +---------+ + + | [facility] DEPARTMENT OF | | | | [...] | | + +---------+ + + | [facility] DEPARTMENT OF | | | | | RADIOLOGY | | | | + +---------+ + + documented in this encounter Visit Diagnoses Not on filedocumented in this encounter"
--- OUTSIDE RECORDS SUMMARY | ~2019-04-04 | XMS | Clinical Summary ---
Demographics + + + | Address | [address] | | | [place] [address] | + + + | Home Phone [...] + + | Author | [facility] | + + + | Organization | [facility] | + + + | Address | Unknown | + + + | Phone | Unavailable | + + + Support + + +---------+ + | Name | Relationship | Address | Phone | + + +---------+ + | Gerry Wheat | ECON | Unknown | | + + +---------+ + Care Team Providers + +------+ + | Care Hospital Nurse Name | Role | Phone | + [...] | 2018 | Encounter | | Xr [facility] | acetabular labrum, | | | | | Procedure | initial encounter | | | | | Radiologist 2, [facility] | | | | | | Di Nurse | | +--------+ + + + + | 03/11/ | Telephone | | Vicky Ferrell, | Referral | | 2019 | | | BELT LOOP MAKER | | +--------+ + + + + [...] [facility] | [address] | [place] [address] | | + + + + + [...] +------+-------+ + | MEDICAID | MAX | [id number] | | | [address] | | | N | | | | [place] | | | [place] | | | | [address] | | | EXTRUDER OPERATOR VERTICAL | | | | | + +--------+ [...] | [birth year] | Home: | [address] | | | al/Fam | | 1975 | [phone] [place] [address] | | | donte | | | [phone] | | + +--------+ +--------+ + +
--- OUTSIDE RECORDS SUMMARY | ~2019-04-04 | XMS | Encounter Summary ---
Demographics + + + | Address | [address] | | | [place], [place] [address] | + + + | Home Phone | | + + + | Preferred Language | Unknown | + + + | Marital Status | | + + + | Restoration Affiliation | Unknown | + + + | Race | Unknown | + + + | Ethnic Group | Unknown | + + + Author + + + | Author | [facility] | + + + | Organization | [facility] | + + + | Address | Unknown | + + + | Phone | Unavailable | + + + Support + + +---------+ + | Name | Relationship | Address | Phone | + + +---------+ + | Gerry Medina | ECON | Unknown | | + + +---------+ + Care Team Providers + +------+ + | Care Core Dropper Name | Role | Phone | + [...] + + | 02/12/ | Telephone | [facility] | Sujey White | Other (Needs | | 2019 | | [facility] | | Referral) | | | | MEDICINE [facility] | | | | | | [address] | | | | | | [place] | | | | | | [address] | | | | | | [phone] | | | +--------+ + + + [...]
--- OUTSIDE RECORDS SUMMARY | ~2019-04-04 | XMS | Encounter Summary ---
Demographics + + + | Address | [address] | | | [place] [address] | + + + | Home Phone | | + + + | Preferred Language | Unknown | + + + | Marital Status | Single | + + + | Islam Affiliation | CHR | + + + | Race | White | + + + | Ethnic Group | Not or | + + + Author + + + | Author | [facility] | + + + | Organization | [facility] | + + + | Address | Unknown | + + + | Phone | Unavailable | + + + Support + + +---------+ + | Name | Relationship | Address | Phone | + + +---------+ + | Cristofer Wheat | ECON | Unknown | | + + +---------+ + Care Team Providers + +------+ + | Care Printer Small Print Shop Name | Role | Phone | + [...] [place] | | | | | | [facility] | | | | | | [place], [place] | | | | | | [address] | | | +--------+ + + + [...] | + + | 01/25/2004 11:04 AM [facility] Anesthesia PostOp Report | | | | Patient: BENJAMIN WHEAT Med Rec: [id number] Sex M Bdate: 1975 | | Date/Time Data | | Entered Into [facility] | | Anesth PostOp | | Surgery Date [id number] 01/25/04 11:04 | | Anesthesiologist ANTONELLA MCDONALD [...]
--- OUTSIDE RECORDS SUMMARY | ~2019-04-04 | XMS | Encounter Summary ---
Demographics + + + | Address | [address] | | | [place] [address] | + + + | Home Phone | | + + + | Preferred Language | Unknown | + + + | Marital Status | Single | + + + | Mormon Affiliation | CHR | + + + | Race | White | + + + | Ethnic Group | Not or | + + + Author + + + | Author | [facility] | + + + | Organization | [facility] | + + + | Address | Unknown | + + + | Phone | Unavailable | + + + Support + + +---------+ + | Name | Relationship | Address | Phone | + + +---------+ + | Cristofer Medina | ECON | Unknown | | + + +---------+ + Care Team Providers + +------+ + | Care Copy Operator Name | Role | Phone | [...] as of this encounter Progress Notes Interface, Rubber Press Operator In - 06/04/2005 2:17 AM PDT [id number] MARY ALICE GRAYON[facility] Clinic Date: 01/04/2005 Orthopedic [...] nurse practitioner. Isra Fowler M.D. MARGRET / [id number] / [id number] / [id number] / cc: Wilber SACK CLEANING HAND [facility] [address] [address] Electronically signed by Isra Fowler 01-17-2005 01:25:02 PM documented i n this encounter Plan of Treatment Not on filedocumented as of this encounter Visit Diagnoses Not on filedocumented in this encounter"
--- OUTSIDE RECORDS SUMMARY | ~2019-04-04 | XMS | Encounter Summary ---
Demographics + + + | Address | [address] | | | [place], [place] [address] | + + + | Home Phone | | + + + | Preferred Language | Unknown | + + + | Marital Status | | + + + | Orthodoxy Affiliation | Unknown | + + + | Race | Unknown | + + + | Ethnic Group | Unknown | + + + Author + + + | Author | [facility] | + + + | Organization | [facility] | + + + | Address | Unknown | + + + | Phone | Unavailable | + + + Support + + +---------+ + | Name | Relationship | Address | Phone | + + +---------+ + | Gerry Medina | ECON | Unknown | | + + +---------+ + Care Team Providers + +------+ + | Care Hand [place] Helper Name | Role | Phone | + [...] | | | | | roni, | [facility] | [place] | | | | | initial | [address] | [address] | | | | | encounter | Phone: | Phone: | | | | | | [phone] | [phone] | | | | | | Fax: | Fax: | | | | | | [phone] | [phone] | +--------+ + + + + + Encounter Details +--------+---------+ + + + | Date | Type | Department | Care Team | Description | +--------+---------+ + + + | 03/07/ | Office | [facility] | Obie Aceves, | | | 2019 | Visit | [facility] | [address] | | | | | MEDICINE SHERRI | [place] [address] | | | | | [address] | [phone] | | | | | [place], [place] | | | | | | [address] | | | | | | [phone] | | | +--------+---------+ + + + [...]
--- OUTSIDE RECORDS SUMMARY | ~2019-04-04 | XMS | Encounter Summary ---
Demographics + + + | Address | [address] | | | [place] [address] | + + + | Home Phone | | + + + | Preferred Language | Unknown | + + + | Marital Status | Single | + + + | Nondenominational Affiliation | CHR | + + + | Race | White | + + + | Ethnic Group | Not or | + + + Author + + + | Author | [facility] | + + + | Organization | [facility] | + + + | Address | Unknown | + + + | Phone | Unavailable | + + + Support + + +---------+ + | Name | Relationship | Address | Phone | + + +---------+ + | Cristofer Medina | ECON | Unknown | | + + +---------+ + Care Team Providers + +------+ + | Care Health Editor Name | Role | Phone | + [...] [address] | [address] | | | | | [facility] | [facility] | | | | | Mailcode: L[address]A | [place], [place] | | | | | Physicians [place] | [address] | | | | | [address] [place], | [phone] | | | | | [place] [address] | | | | | | [phone] | | | +--------+ + + + [...] | + + + + + | [facility] | [address] | [place] [address] | | | PATHOLOGY | [address] | | | + + + + + | [facility] | [address] | [place] [address] | | | PATHOLOGY | [address] | | | + + + + + documented in this encounter Visit Diagnoses Not on filedocumented in this encounter"
[~2019-04-04 22:13] MED LIST changes: +ESCITALOPRAM OX20 MG PO; +IBUPROFEN800 MG PO; +NORCO 5-325 TA1 EACH PO; +PROPRANOLOL HCL20 MG PO
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
[2019-04-04] MEDS ORDERED: KEFLEX500 MG PO (23:51)
[2019-04-04] MEDS ORDERED: NORCO 5-325 TA1 EACH PO (23:51)
== END 2019-04-05 00:26 | disposition home or self-care (01) ==
LOC: ED 22:13
PROC: 2W3EX1Z Immobilization of Right Hand using Splint (ICD-10-PCS; principal; 2019-04-04)
DX: S62.326A Displaced fracture of shaft of fifth metacarpal bone, right hand, initial encounter for closed fracture (principal); S61.401A Unspecified open wound of right hand, initial encounter; L08.9 Local infection of the skin and subcutaneous tissue, unspecified; Z87.891 Personal history of nicotine dependence; Z88.0 Allergy status to penicillin; W23.0XXA Caught, crushed, jammed, or pinched between moving objects, initial encounter
CPT/HCPCS: 29125; 73130; 99283-25

== ENCOUNTER 2019-12-11 19:54 | Emergency (ER) | payer OTHER ==
[~2019-12-11] VITALS: Ht 177.8 cm; Wt 61.6 kg
[~2019-12-11 19:54] MED LIST changes: +KEFLEX500 MG PO
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
== END 2019-12-11 23:15 | disposition home or self-care (01) ==
LOC: ED 19:54
DX: K52.9 Noninfective gastroenteritis and colitis, unspecified (principal); F41.9 Anxiety disorder, unspecified; Z87.891 Personal history of nicotine dependence; Z88.0 Allergy status to penicillin; Z79.899 Other long term (current) 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
CPT/HCPCS: 74177; 80053; 81001; 83690; 85025; 96361; 99284-25; J1170; J2405; J7030; Q9967

== ENCOUNTER 2020-10-21 15:05 | Emergency (ER) | payer OTHER ==
[~2020-10-21] VITALS: Ht 175.3 cm; Wt 74.8 kg
[~2020-10-21 15:05] MED LIST changes: +GABAPENTIN100 MG PO; +ZANAFLEX4 MG PO
--- OUTSIDE RECORDS SUMMARY | 2020-10-21 15:08 | XMS ---
PreManage Notification: BENJAMIN WHEAT Security Prescription Benefit Specialist Events No recent Security Events currently on file CRITERIA MET - [facility] CARE PROVIDERS Roxana Cornelia Community Health Worker 04/02/2020-Current PHONE: [phone] Name Unknown Clinic/Center: Primary Care 12/12/2019-Current PHONE: [phone] Care Guidelines exist for the following facilities: Brendan Wallace ( 04/07/2019 ) [place] VISIT COUNT (12 MO.) 1 [facility] 3 [facility] TOTAL 4 NOTE: Visits indicate total known visits. ED/UCC VISIT TRACKING (12 MO.) 10/21/2020 15:06 [facility] [place] TYPE: Emergency COMPLAINT: - GROIN/HIP PAIN 03/18/2020 14:55 [facility] [place] TYPE: Emergency DIAGNOSES: - Other chronic pain - BACK PAIN - Muscle spasm of back - Unspecified fall, initial encounter - Low back pain 01/10/2020 00:40 [facility] [place] TYPE: Emergency COMPLAINT: - BLOOD IN URINE DIAGNOSES: - Anxiety disorder, unspecified - Other residential (current) 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 - Personal history of nicotine dependence - Unspecified abdominal pain - Hematuria, unspecified 12/11/2019 19:55 [facility] [place] TYPE: Emergency COMPLAINT: - ABDOMINAL PAIN/BLOOD IN STOOL DIAGNOSES: - Anxiety disorder, unspecified - Noninfective gastroenteritis and colitis, unspecified - Personal history of nicotine dependence - Other technician terminal and repeater (current) 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 - Lower abdominal pain, unspecified - Allergy status to penicillin INPATIENT VISIT TRACKING (12 MO.) No inpatient visits to display in this time frame [email or web address]
[2020-10-21] MEDS ORDERED: MORPHINE SULFAT15 M1 PO (15:21)
[2020-10-21] MEDS ORDERED: CELECOXIB200 MG PO (15:23)
[2020-10-21] MEDS ORDERED: BUPROPION HCL150 M2 PO (15:23)
[2020-10-21] MEDS ORDERED: OXYCODONE-ACET1 EAC3 PO (15:24)
[2020-10-21] MEDS ORDERED: MELOXICAM7.5 MG PO (16:19)
== END 2020-10-21 17:00 | disposition home or self-care (01) ==
LOC: ED 15:05
DX: R10.32 Left lower quadrant pain (principal); F17.200 Nicotine dependence, unspecified, uncomplicated; Z88.0 Allergy status to penicillin; Z79.899 Other long term (current) 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; Z79.891 Long term (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
CPT/HCPCS: 73502; 76870; 81001; 96372; 99284-25; J1885

== ENCOUNTER 2020-12-04 17:19 | Emergency (ER) | payer OTHER ==
[~2020-12-04] VITALS: Ht 175.3 cm; Wt 75.2 kg
[~2020-12-04 17:19] MED LIST changes: +BUPROPION HCL150 M2 PO; +CELECOXIB200 MG PO; +MELOXICAM7.5 MG PO; +MORPHINE SULFAT15 M1 PO; +OXYCODONE-ACET1 EAC3 PO
--- OUTSIDE RECORDS SUMMARY | 2020-12-04 17:22 | XMS ---
PreManage Notification: BENJAMIN WHEAT Security Knitter Wire Mesh Events No recent Security Events currently on file CRITERIA MET - [facility] CARE PROVIDERS Roxana Cornelia Community Health Worker 04/02/2020-Current PHONE: [phone] [facility] PRIMARY Clinic/Center: Primary Care 12/12/2019-[facility] PHONE: [phone] Care Guidelines exist for the following facilities: [facility] ( 04/07/2019 ) [place] VISIT COUNT (12 MO.) 1 [facility] 4 [facility] TOTAL 5 NOTE: Visits indicate total known visits. ED/UCC VISIT TRACKING (12 MO.) 12/04/2020 17:20 [facility] [place] TYPE: Emergency COMPLAINT: - BACK AND LEG PAIN 10/21/2020 15:06 [facility] [place] TYPE: Emergency COMPLAINT: - GROIN PAIN DIAGNOSES: - Pain in left hip - Other long-term (current) 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 - USP (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 - Left lower quadrant pain - Nicotine dependence, unspecified, uncomplicated - Left lower quadrant pain - Allergy status to penicillin 03/18/2020 14:55 [facility] [place] TYPE: Emergency DIAGNOSES: - Other chronic pain - BACK PAIN - Muscle spasm of back - Unspecified fall, initial encounter - Low back pain 01/10/2020 00:40 [facility] [place] TYPE: Emergency COMPLAINT: - BLOOD IN URINE DIAGNOSES: - Anxiety disorder, unspecified - Other bulk clerk (current) 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 - Personal history of nicotine dependence - Unspecified abdominal pain - Hematuria, unspecified 12/11/2019 19:55 [facility] [place] TYPE: Emergency COMPLAINT: - ABDOMINAL PAIN/BLOOD IN STOOL DIAGNOSES: - Anxiety disorder, unspecified - Noninfective gastroenteritis and colitis, unspecified - Personal history of nicotine dependence - Other bulk clerk (current) 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 - Lower abdominal pain, unspecified - Allergy status to penicillin INPATIENT VISIT TRACKING (12 MO.) No inpatient visits to display in this time frame [id number]
[2020-12-04] MEDS ORDERED: ATIVAN2 MG PO (17:43)
[2020-12-04] MEDS ORDERED: CLONAZEPAM0.5 MG PO (17:45)
[2020-12-04] MEDS ORDERED: XANAX0.25 MG PO (17:45)
== END 2020-12-04 18:31 | disposition home or self-care (01) ==
LOC: ED 17:19
DX: M54.42 Lumbago with sciatica, left side (principal); G89.29 Other chronic pain; Z88.0 Allergy status to penicillin; Z88.5 Allergy status to narcotic agent; Z79.899 Other long term (current) 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
CPT/HCPCS: 99283

== ENCOUNTER 2020-12-31 12:49 | Emergency (ER) | payer OTHER ==
[~2020-12-31] VITALS: Ht 175.3 cm; Wt 75.2 kg
[~2020-12-31 12:49] MED LIST changes: +ATIVAN2 MG PO; +CLONAZEPAM0.5 MG PO; +XANAX0.25 MG PO
--- OUTSIDE RECORDS SUMMARY | 2020-12-31 12:52 | XMS ---
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 No recent Security Events currently on file CRITERIA MET - [facility] - [facility] - 2 Visits in 30 Days CARE PROVIDERS LILY MENA Physician Studio Musician: Medical 12/06/2020-Current PHONE: [phone] Cornelia Schmidt Community Health Worker 04/02/2020-Current PHONE: [phone] [facility] PRIMARY Clinic/Center: Primary Care 12/12/2019-[facility] PHONE: [phone] Care Guidelines exist for the following facilities: [facility] ( 12/20/2020 ) [place] VISIT COUNT (12 MO.) 1 [facility] 4 IMAN Fabian TOTAL 5 NOTE: Visits indicate total known visits. 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 [place] TYPE: Emergency COMPLAINT: - BLOOD IN URINE DIAGNOSES: - Anxiety disorder, unspecified - Other residential (current) 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 - Personal history of nicotine dependence - Unspecified abdominal pain - Hematuria, unspecified INPATIENT VISIT TRACKING (12 MO.) No inpatient visits to display in this time frame [id number]
[2020-12-31] MEDS ORDERED: OXYCONTIN10 MG PO (13:09)
[2020-12-31] MEDS ORDERED: NARCAN4 MG NS (13:09)
[2020-12-31] MEDS ORDERED: IBUPROFEN800 MG PO (13:09)
[2020-12-31] MEDS ORDERED: MORPHINE SULFAT15 M1 PO (13:10)
[2020-12-31] MEDS ORDERED: MELOXICAM7.5 MG PO (13:42)
== END 2020-12-31 13:50 | disposition home or self-care (01) ==
LOC: ED 12:49
DX: S60.222A Contusion of left hand, initial encounter (principal); W22.8XXA Striking against or struck by other objects, initial encounter; Z88.0 Allergy status to penicillin; Z88.5 Allergy status to narcotic agent; Z79.899 Other long term (current) 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; Z79.891 Long term (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
CPT/HCPCS: 73130; 99283-25

== ENCOUNTER 2021-07-14 14:25 | Emergency (ER) | payer OTHER ==
[~2021-07-14] VITALS: Ht 175.3 cm; Wt 65.5 kg
[~2021-07-14 14:25] MED LIST changes: +NARCAN4 MG NS; +OXYCONTIN10 MG PO
--- OUTSIDE RECORDS SUMMARY | 2021-07-14 14:28 | XMS ---
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 ED/UCC VISIT TRACKING (12 MO.) 07/14/2021 14:26 [facility] [place] TYPE: Emergency COMPLAINT: - R FLANK PAIN, VOMITING, SOB 12/31/2020 12:49 [facility] [place] TYPE: Emergency COMPLAINT: - LEFT HAND INJURY DIAGNOSES: - Contusion of left hand, initial encounter - Other residential (current) 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 - penitentiary (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 - Striking against or struck by other objects, initial encounter - Allergy status to narcotic agent - Allergy status to penicillin 12/04/2020 17:20 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
== END 2021-07-14 19:02 | disposition home or self-care (01) ==
LOC: ED 14:25
DX: R10.9 Unspecified abdominal pain (principal); Z88.0 Allergy status to penicillin; Z79.899 Other long term (current) 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; Z79.891 Long term (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
CPT/HCPCS: 71045; 76705; 80053; 81001; 83690; 85025; 96374; 96375; 99284-25; J1885; J2405; J7030

== ENCOUNTER 2021-09-14 15:08 | Emergency (ER) | payer OTHER ==
[~2021-09-14] VITALS: Ht 175.3 cm; Wt 67.2 kg
--- OUTSIDE RECORDS SUMMARY | 2021-09-14 15:10 | XMS ---
PreManage Notification: BENJAMIN WHEAT Security Reed Worker Events No recent Security Events currently on file CRITERIA MET - [facility] CARE PROVIDERS LILY MENA Physician Office Assistant Receptionist: Medical 12/06/2020-Current PHONE: [phone] Cornelia Schmidt Community Health Worker 04/02/2020-Current PHONE: [phone] [facility] PRIMARY Clinic/Center: Primary Care 12/12/2019-[facility] PHONE: [phone] Care Guidelines exist for the following facilities: [facility] ( 12/20/2020 ) [place] VISIT COUNT (12 MO.) 5 IM[facility] Fabian TOTAL 5 NOTE: Visits indicate total known visits. 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 [place] TYPE: Emergency COMPLAINT: - BACK AND LEG PAIN DIAGNOSES: - Allergy status to narcotic agent - Other penitentiary (current) 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 - Low back pain - Allergy status to penicillin - Other chronic pain - Lumbago with sciatica, left side 10/21/2020 15:[address] [facility] [place] TYPE: Emergency COMPLAINT: - GROIN PAIN DIAGNOSES: - Pain in left hip - Other penitentiary (current) 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 - [facility] (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 - Left lower quadrant pain - Nicotine dependence, unspecified, uncomplicated - Left lower quadrant pain - Allergy status to penicillin INPATIENT VISIT TRACKING (12 MO.) No inpatient visits to display in this time frame [id number]
[2021-09-14] MEDS ORDERED: KETOROLAC TROME10 MG PO (15:28)
== END 2021-09-14 17:50 | disposition home or self-care (01) ==
LOC: ED 15:08
DX: I86.1 Scrotal varices (principal); Z88.0 Allergy status to penicillin; Z79.899 Other long term (current) 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
CPT/HCPCS: 76870; 81001; 99284-25; A9270

== ENCOUNTER 2021-09-17 22:15 | Emergency (ER) | payer OTHER ==
[~2021-09-17] VITALS: Ht 175.3 cm; Wt 66.2 kg
--- NOTE | ~2021-09-17 | EKG ---
[facility] [address] [place], [place] [address] Draft EKG completed, results pending confirmation PATIENT NAME: BENJAMIN WHEAT Electrocardiogram DATE OF : 75 PHYSICIAN: PRELIMINARY REPORT #: [id number] REPORT IS CONFIDENTIAL AND NOT TO BE RELEASED WITHOUT AUTHORIZATION
[~2021-09-17 22:15] MED LIST changes: +KETOROLAC TROME10 MG PO
--- OUTSIDE RECORDS SUMMARY | 2021-09-17 22:18 | XMS ---
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 6 [facility] TOTAL 8 NOTE: Visits indicate total known visits. ED/UCC VISIT TRACKING (12 MO.) 09/17/2021 22:15 [facility] [place] TYPE: Emergency COMPLAINT: - CHEST PAIN [facility] DIAGNOSES: - Scrotal varices - groin pain - Left testicular pain 09[facility]15[facility]2021 02:[facility] DIAGNOSES: - groin pain - Testicle Pain - Scrotal varices 09/14/2021 15:09 [facility] [place] TYPE: Emergency COMPLAINT: - GROIN PAIN DIAGNOSES: - Other senior care (current) 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 - Left testicular pain - Allergy status to penicillin - Scrotal varices 07/14/2021 14:26 [facility] [place] TYPE: Emergency COMPLAINT: - R FLANK PAIN, VOMITING, SOB DIAGNOSES: - Allergy status to penicillin - 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 - Unspecified abdominal pain - Other moth 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 (current) 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 12/31/2020 12:49 [facility] [place] TYPE: Emergency COMPLAINT: - LEFT HAND INJURY DIAGNOSES: - Contusion of left hand, initial encounter - Other senior care (current) 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 - 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 - Striking against or struck by other objects, initial encounter - Allergy status to narcotic agent - Allergy status to penicillin 12/04/2020 17:20 [facility] [place] TYPE: Emergency COMPLAINT: - BACK AND LEG PAIN DIAGNOSES: - Allergy status to narcotic agent - 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
--- NOTE | 2021-09-18 08:08 | EKG ---
[facility] [address] [place], [place] [address] Signed Normal sinus rhythm Nonspecific ST abnormality Abnormal ECG When compared with ECG of 17-SEP-2021 22:22, (Unconfirmed) No significant change was found Confirmed by SIMRAN EDUARDO MD ([id number]) on 09/18/2021 8:08:32 AM Electronically Signed By: SIMRAN EDUARDO MD 09/18/21807 PATIENT NAME: BENJAMIN WHEAT Electrocardiogram DATE OF : 75 PHYSICIAN: SIMRAN EDUARDO MD REPORT #: [id number] REPORT IS CONFIDENTIAL AND NOT TO BE RELEASED WITHOUT AUTHORIZATION
== END 2021-09-18 00:32 | disposition home or self-care (01) ==
LOC: ED 22:15
DX: R07.9 Chest pain, unspecified (principal); R10.32 Left lower quadrant pain; M54.9 Dorsalgia, unspecified; G89.29 Other chronic pain; Z88.0 Allergy status to penicillin; Z79.899 Other long term (current) 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
CPT/HCPCS: 71045; 80053; 81001; 83735; 84484; 85025; 85379; 85610; 93005; 93010; 96374; 99285-25; J1885

== ENCOUNTER 2022-02-18 12:53 | Emergency (ER) | payer MEDICARE, OTHER ==
[~2022-02-18] VITALS: Ht 175.3 cm; Wt 66.2 kg
--- OUTSIDE RECORDS SUMMARY | 2022-02-18 12:56 | XMS ---
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 PHONE: [phone] Care Guidelines exist for the following facilities: [facility] ( 12/20/2020 ) [place] VISIT COUNT (12 MO.) [address] [facility] 4 IMAN Fabian TOTAL 6 NOTE: Visits indicate total known visits. 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 - Other chronic pain - Allergy status to penicillin - Left lower quadrant pain [facility]21 19:[facility] DIAGNOSES: - Scrotal varices - groin pain - Left testicular pain 09/15/2021 02:56 [facility] DIAGNOSES: - groin pain - Testicle Pain - Scrotal varices 09/14/2021 15:09 [facility] TYPE: Emergency COMPLAINT: - GROIN PAIN DIAGNOSES: - Other 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
[2022-02-18] MEDS ORDERED: PREDNISONE20 MG PO (15:36)
== END 2022-02-18 15:47 | disposition home or self-care (01) ==
LOC: ED 12:53
DX: M54.50 Low back pain, unspecified (principal); Z88.0 Allergy status to penicillin; Z79.899 Other long term (current) 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; Z79.891 Long term (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
CPT/HCPCS: 36415; 74176; 80053; 81001; 83690; 85025; 96374; 96375; 99284-25; J1100; J2270; J2405